=== PATIENT | female | born 1965 | race Caucasian/White ===

== ENCOUNTER 2022-05-25 09:21 | Outpatient (REF) | payer OTHER, SELFPAY ==
[2022-05-25 10:39] LABS: MANUAL DIFF FLAG NO
[2022-05-25 10:43] LABS: Basophils Absolute Auto 0.1 X10*3/uL (0.0-0.2); Basophils Percent Auto 0.8 % (0-2); Eosinophils Absolute Auto 0.5 X10*3/uL (0.0-0.4); Eosinophils Percent Auto 8.3 % (0-4); Hematocrit 38.3 % (37.0-47.0); Hemoglobin 12.3 g/dl (12.0-16.0); Imm Gran Abs Auto 0.02 X10*3/uL (0.00-0.03); Imm Gran Pct Auto 0.3 % (0.0-0.4); Lymphocytes Absolute Auto 1.6 X10*3/uL (1.2-4.9); Lymphocytes Percent Auto 25.2 % (20-40); Mean Corpuscular HGB Conc 32.1 g/dl (31.0-35.0); Mean Corpuscular Hemoglobin 27.8 pg (27.0-33.0); Mean Corpuscular Volume 86.7 fL (80.0-98.0); Mean Platelet Volume 10.7 fL (9.4-12.3); Monocytes Absolute Auto 0.6 X10*3/uL (0.1-1.2); Monocytes Percent Auto 9.9 % (2-11); Neutrophils Absolute Auto 3.5 x10*3/uL (2.0-8.3); Neutrophils Percent Auto 55.5 % (45-73); Platelet Count 325 X10*3/uL (160-400); Red Blood Count 4.42 X10*6/uL (4.20-5.50); Red Cell Distribution Width 14.5 % (11.0-16.0); White Blood Count 6.4 X10*3/uL (4.8-10.8)
[2022-05-25 10:58] LABS: C Reactive Protein 1.25 mg/dL (< or = 0.50)
[2022-05-25 11:35] LABS: Erythrocyte Sedimentation Rate 54 MM/HR (0-20)
== END 2022-05-25 09:22 | disposition home or self-care (01) ==
LOC: HO.10HDL 09:21
PROVIDERS: Visit Provider Internal Medicine Rheumatology
DX: M05.9 Rheumatoid arthritis with rheumatoid factor, unspecified (principal)
CPT/HCPCS: 36415; 85025; 85652; 86140

== ENCOUNTER → 2022-11-09 14:58 | Outpatient (BNVA) | payer OTHER, SELFPAY | PROVIDERS: PCP Internal Medicine; Visit Provider Internal Medicine Rheumatology | DX: Z13.89 Encounter for screening for other disorder (principal) ==

== ENCOUNTER 2023-01-16 14:01 | Outpatient (REF) | payer OTHER, SELFPAY ==
[2023-01-16 15:52] LABS: MANUAL DIFF FLAG NO
[2023-01-16 15:54] LABS: Basophils Absolute Auto 0.1 X10*3/uL (0.0-0.2); Eosinophils Absolute Auto 0.6 X10*3/uL (0.0-0.4); Eosinophils Percent Auto 8.9 % (0-4); Hematocrit 37.9 % (37.0-47.0); Hemoglobin 12.1 g/dl (12.0-16.0); Imm Gran Abs Auto 0.03 X10*3/uL (0.00-0.03); Imm Gran Pct Auto 0.4 % (0.0-0.4); Lymphocytes Absolute Auto 1.8 X10*3/uL (1.2-4.9); Lymphocytes Percent Auto 26.1 % (20-40); Mean Corpuscular HGB Conc 31.9 g/dl (31.0-35.0); Mean Corpuscular Hemoglobin 27.8 pg (27.0-33.0); Mean Corpuscular Volume 87.1 fL (80.0-98.0); Mean Platelet Volume 11.1 fL (9.4-12.3); Monocytes Absolute Auto 0.6 X10*3/uL (0.1-1.2); Monocytes Percent Auto 8.8 % (2-11); Neutrophils Absolute Auto 3.7 x10*3/uL (2.0-8.3); Neutrophils Percent Auto 54.8 % (45-73); Platelet Count 292 X10*3/uL (160-400); Red Blood Count 4.35 X10*6/uL (4.20-5.50); Red Cell Distribution Width 15.2 % (11.0-16.0); White Blood Count 6.8 X10*3/uL (4.8-10.8)
[2023-01-16 16:07] LABS: C Reactive Protein 1.02 mg/dL (< or = 0.50)
[2023-01-16 16:55] LABS: Erythrocyte Sedimentation Rate 39 MM/HR (0-20)
== END 2023-01-16 14:02 | disposition home or self-care (01) ==
LOC: HO.HMGCLDS 14:01
PROVIDERS: PCP Internal Medicine; Visit Provider Internal Medicine Rheumatology
DX: M05.9 Rheumatoid arthritis with rheumatoid factor, unspecified (principal); Z79.899 Other long term (current) drug therapy
CPT/HCPCS: 36415; 85025; 85652; 86140

== ENCOUNTER 2023-07-05 14:51 | Outpatient (AMB) | payer OTHER, SELFPAY ==
--- NOTE | 2023-07-05 15:01 | MHC.OFFVIS ---
Intake Vital Signs 07/05/23 15:15 Height 5 ft 2 in Weight 202 lb 9.677 oz BMI 37.1 BP 142/60 H Blood Pressure Location Rt brachial Position Sitting Pulse 84 Pulse Source Pulse Oximeter Temp 97.7 F Temp Source Skin Pulse Oximetry (%) 96 Oxygen Delivery Method Room Air Intake Visit Reasons: Rheumatoid Arthritis Intake Note: Patient presents today for RA follow up. Consumer Services Advisor Required: No Accompanied by: Self / Same As Patient Allergies mold Adverse Reaction (Unknown, Unverified 07/05/23 15:02) Unknown Sulfa (Sulfonamide Antibiotics) Adverse Reaction (Unknown, Unverified 07/05/23 15:02) Unknown dust Adverse Reaction (Unknown, Uncoded 07/05/23 15:02) Watery Eye Medication List - Last Reviewed 07/05/23 by RICHARD Wright albuterol sulfate 90 mcg/actuation 2 puffs inhalation Q6H PRN aspirin (Adult Low Dose Aspirin) 81 mg PO DAILY atorvastatin 20 mg PO DAILY betamethasone, augmented 0.05 % topical cholecalciferol (vitamin D3) 50 mcg PO DAILY fluticasone propion-salmeterol 250-50 mcg/dose (Advair Diskus) 1 ea inhalation BID fluticasone propionate 50 mcg/actuation (Allergy Relief (fluticasone)) 1 spray intranasal DAILY hydroxychloroquine (Plaquenil) 200 mg PO BID Lactobacillus rhamnosus GG (Culturelle) 1 cap PO DAILY levothyroxine mcg PO multivitamin 1 tab PO DAILY potassium citrate ER 15 mEq PO BID HPI HPI Comments History of Present Illness Details The patient returns for evaluation of her rheumatoid arthritis. she remains on hydroxychloroquine 200 mg twice a day. She had an eye exam to monitor its safety back in November and another eye exam is planned next winter. She does not seem to have any side effects with the hydroxychloroquine and feels that is working well. She has occasional stiffness in the knees. She is not all that active. She does take walks when the weather is warmer after dinner in the evenings. She decided Dupixent has not been that helpful so she stopped it for her hand eczema. She also had a skin cancer removed from the left cheek. She says her furniture builder has quit practicing so she needs a furniture builder to follow-up on those issues. FORMERLY [facility], [facility] Medical History Asthma Coronary artery disease Hyperlipidemia Hypothyroid Nonrheumatic pulmonary valve stenosis Obstructive sleep apnea Overactive bladder Rheumatoid arthritis, seropositive, multiple sites Seborrheic dermatitis Severe obesity (BMI 35.0-35.9 with comorbidity) Staghorn calculus Ventricular septal defect Surgical History H/O valvuloplasty H/O mammogram Hx of colonoscopy Family History Mother Hypertension Arthritis Breast cancer, Onset Age: 80 Sister Arthritis Father Diabetes Arthritis Social History Household Members Other:: lives alone 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 GI Details: Negative indigestion/heartburn, nausea, abdominal pain, bowel changes, diarrhea, constipation and bloody stool. Endo Details: Negative for polyuria and polydypsia Yassine/Lymph Details: Negative for excessive bruising or bleeding. Physical Exam Vital Signs: Last Vital Signs Temp 97.7 F 07/05/23 15:15 Pulse 84 07/05/23 15:15 BP 142/60 H 07/05/23 15:15 Pulse Ox 96 07/05/23 15:15 Oxygen Delivery Method Room Air 07/05/23 15:15 BMI result Body Mass Index 37.1 APPEARANCE: Patient in no acute distress EYES no redness, pupils equal and reactive to light, eyelids normal EXTREMITIES: No edema, no calf tenderness, normal peripheral pulses. SKIN: Some dryness and flaking over the palms of the hands and to some extent the feet in the soles of the feet in the dorsum of the feet. No raised inflammatory or neoplastic lesions. She has well-healed scar over the left cheek where she had the skin cancer removed. She has no objective signs of Raynaud's disease. JOINT EXAM: ?Cervical Spine:.? Lateral flexion seems limited about 10 degrees and rotation at 45 degrees but without pain; no tenderness. Thoracic Spine:.? No scoliosis.? No tenderness on palpation. Lumbar Spine:.? Alignment normal.? Full range of motion without pain, no tenderness. Chest Wall:.? No tenderness, swelling, increased warmth or erythema. Hands:.? Right:? Normal pain-free range of motion.? There is some slight thickening at the 3rd MCP but without tenderness.? In other joints there is no tenderness or swelling.? No flexor tendon triggering, thenar atrophy or sensory loss.? Left:? Normal pain-free range of motion without tenderness, swelling, increased warmth or erythema.? No flexor tendon triggering, thenar atrophy or sensory loss. Wrists:? Normal pain-free range of motion without tenderness, swelling, increased warmth or erythema. Elbows:. Normal pain-free range of motion without tenderness, swelling, increased warmth or erythema. Shoulders:.?? Full range of motion without pain. No tenderness, weakness, swelling, increased warmth or erythema. Hips:? Full range of motion without pain. Hip bursa:.? No tenderness. Knees: Right:?? Normal pain-free range of motion with slight patellofemoral crepitus but no effusion, tenderness, swelling, increased warmth or erythema.? Left: Mild patellofemoral crepitus. There is slight medial compartment tenderness without redness or effusion. No ligamentous instability. Ankles:? Normal pain-free range of motion without tenderness, swelling, increased warmth or erythema. Feet:.? Left:? With weight-bearing there is marked splaying between the 2nd and 3rd toes and maybe some thickening in those joints wrists slight 2nd 3rd MTP tenderness.? Slight thickening at the 1st MTP without tenderness.? Right:? Normal pain-free range of motion with slight bony enlargement at the 1st MTP joint but it is not tender.? Elsewhere there is no tenderness, swelling, increased warmth or erythema. Results Reviewed Results Reviewed: Laboratory Tests 01/16/23 01/16/23 14:11 14:17 ESR 39 H C-Reactive Protein 1.02 H Assessment & Plan Assessment & Plan (1) Long-term use of hydroxychloroquine: Code(s): Z79.899 - Other long wall mining machine helper (current) drug therapy (2) Seropositive rheumatoid arthritis: Comment: Onset ~ 2008. Pos CIERA, pos RF, pos CCP Ab, neg anti-SAMIRA. Hydroxychloroquine started 02/15; eye exam OK 10/19, 10/20, 10/21, 10/22, 11/23, 10/2020, 11/2021 Code(s): M05.9 - Rheumatoid arthritis with rheumatoid factor, unspecified Plan She has rheumatoid arthritis with I think good control of synovitis with current regimen. She is complying with regular eye exams to monitor her for possible toxicity of the hydroxychloroquine so I think we can continue. We will aim for return visit in about 6 months but she can certainly call us if she senses a flare-up of symptoms. Coding Level of Care Code Est Pt Level 3 (12079) Diagnoses Long-term use of hydroxychloroquine Z79.899 Seropositive rheumatoid arthritis M05.9
[2023-07-05 15:15] VITALS: BP 142/60; PULSE 84; TEMP 36.5; O2SAT 96; BMI 37.1
== END 2023-07-05 15:33 | disposition home or self-care (01) ==
PROVIDERS: PCP Internal Medicine; Visit Provider Internal Medicine Rheumatology
DX: M05.79 Rheumatoid arthritis with rheumatoid factor of multiple sites without organ or systems involvement (principal); Z79.899 Other long term (current) drug therapy
CPT/HCPCS: 99213

== ENCOUNTER → 2023-07-05 14:51 | Outpatient (BNVA) | payer OTHER, SELFPAY | PROVIDERS: Visit Provider Internal Medicine Rheumatology ==

== ENCOUNTER 2024-01-04 14:06 | Outpatient (AMB) | payer OTHER, SELFPAY ==
[2024-01-04 14:25] VITALS: BP 122/76; PULSE 75; O2SAT 97; BMI 36.8
--- NOTE | 2024-01-04 14:25 | MHC.OFFVIS ---
Intake Vital Signs 01/04/24 14:25 Height 5 ft 2 in Weight 201 lb 4.513 oz BMI 36.8 BP 122/76 Blood Pressure Location Lt brachial Position Sitting Pulse 75 Pulse Source Pulse Oximeter Pulse Oximetry (%) 97 Oxygen Delivery Method Room Air Intake Visit Reasons: RA with dr. Bright/MANNY Intake Note: Patient last seen by Dr Fonseca 07/05/23 presents today for follow up. 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 Accompanied by: Self / Same As Patient Allergies mold Adverse Reaction (Unknown, Unverified 01/04/24 14:33) Unknown Sulfa (Sulfonamide Antibiotics) Adverse Reaction (Unknown, Unverified 01/04/24 14:33) Unknown dust Adverse Reaction (Unknown, Uncoded 01/04/24 14:33) Watery Eye Medication List - Last Reconciled 01/04/24 by Nadia Aguilar MD albuterol sulfate 90 mcg/actuation 2 puffs inhalation Q6H PRN aspirin (Adult Low Dose Aspirin) 81 mg PO DAILY atorvastatin 20 mg PO DAILY betamethasone, augmented 0.05 % topical cholecalciferol (vitamin D3) 50 mcg PO DAILY fluticasone propion-salmeterol 250-50 mcg/dose (Advair Diskus) 1 ea inhalation BID fluticasone propionate 50 mcg/actuation (Allergy Relief (fluticasone)) 1 spray intranasal DAILY hydroxychloroquine 200 mg PO BID Lactobacillus rhamnosus GG (Culturelle) 1 cap PO DAILY levothyroxine 100 mcg PO DAILY multivitamin 1 tab PO DAILY potassium citrate ER 15 mEq PO BID HPI HPI Comments History of Present Illness Details This is a 58-year-old female with seropositive RA who returns for follow-up. This is her 1st visit with me. She used to follow-up with Dr. Fonseca. She remains on hydroxychloroquine 200 mg Twice daily. States that she continues to feel about the same overall. States that she gets intermittent knee pain especially when kneeling. Otherwise she feels well. Denies any swollen joints. Most recent history by Dr. Fonseca 07/2023: The patient returns for evaluation of her rheumatoid arthritis. she remains on hydroxychloroquine 200 mg twice a day. She had an eye exam to monitor its safety back in November and another eye exam is planned next winter. She does not seem to have any side effects with the hydroxychloroquine and feels that is working well. She has occasional stiffness in the knees. She is not all that active. She does take walks when the weather is warmer after dinner in the evenings. She decided Dupixent has not been that helpful so she stopped it for her hand eczema. She also had a skin cancer removed from the left cheek. She says her perinatal technician has quit practicing so she needs a perinatal technician to follow-up on those issues. FORMERLY [facility] Medical History Seborrheic dermatitis Ventricular septal defect Hypothyroid Overactive bladder Rheumatoid arthritis, seropositive, multiple sites Obstructive sleep apnea Severe obesity (BMI 35.0-35.9 with comorbidity) Hyperlipidemia Asthma Nonrheumatic pulmonary valve stenosis Coronary artery disease Staghorn calculus Surgical History H/O valvuloplasty H/O mammogram Hx of colonoscopy Family History Mother Hypertension Arthritis Breast cancer, Onset Age: 80 Sister Arthritis Father Diabetes Arthritis Social History Household Members Other:: lives alone Housing: Condominium Are you a primary nurse behavioral health care to a significant other at home: No Do you presently have visiting nurse or other home services: No 75 years or older and lives alone: No Alcohol intake: never Patient Tobacco Use Status: Never used Tobacco e-Cigarette/Vaping Use: Never Used service: No Current occupational status: employed 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 and Denies joint swelling Physical Exam Vital Signs: Last Vital Signs Pulse 75 01/04/24 14:25 BP 122/76 01/04/24 14:25 Pulse Ox 97 01/04/24 14:25 Oxygen Delivery Method Room Air 01/04/24 14:25 BMI result Body Mass Index 36.8 Const General: cooperative, healthy appearing and comfortable Nutritional Appearance: average body habitus and obese morbidly obese Limitations: no limitations HEENT Head: Yes normocephalic and Yes atraumatic Mouth: moist mucous membranes Resp Effort & Inspection: normal respiratory effort and able to speak in complete sentences Auscultation: clear to auscultation bilaterally Cardio Rate: regular rate Rhythm: regular rhythm Heart sounds: Murmur heart sound present systolic Skin General skin exam: no rashes or lesions noted Extrem Other: No active synovitis both hands and wrists Normal range of motion of elbows and shoulders Bilateral knee crepitus Assessment & Plan Assessment & Plan (1) Seropositive rheumatoid arthritis: Comment: Onset ~ 2008. ++CIERA, ++ RF+++ CCP Ab, neg anti-SAMIRA. Hydroxychloroquine started 02/15; eye exam OK 10/19, 10/20, 10/21, 10/22, 11/23, 10/2020, 11/2021, 12/2023 Code(s): M05.9 - Rheumatoid arthritis with rheumatoid factor, unspecified Plan: This is 58-year-old female with seropositive RA who returns for follow-up. This is her 1st visit with me. She used to follow-up with Dr. Fonseca. She remains on hydroxychloroquine 200 mg Twice daily. Doing well with no active synovitis Continue hydroxychloroquine 200 mg Twice daily. Labs before next visit in 6 months (2) Long-term use of hydroxychloroquine: Code(s): Z79.899 - Other buttermaker continuous churn (current) drug therapy Plan: Continue to follow-up regularly with Ophthalmology Plan I spent 27 minutes reviewing patient's chart, evaluating patient, ordering diagnostic workup, counseling patient and documenting in the chart Orders: Orders Comprehensive Met. Panel 6 Months M05.9 - Rheumatoid arthritis with rheumatoid factor, unspecified, Z79.899 - Other buttermaker continuous churn (current) drug therapy Immunofixation Pnl, Serum 6 Months M05.9 - Rheumatoid arthritis with rheumatoid factor, unspecified, Z79.899 - Other longterm (current) drug therapy Protein Electrophoresis, Serum 6 Months M05.9 - Rheumatoid arthritis with rheumatoid factor, unspecified, Z79.899 - Other buttermaker continuous churn (current) drug therapy Hepatitis A,B,C Profile 6 Months M05.9 - Rheumatoid arthritis with rheumatoid factor, unspecified, Z79.899 - Other buttermaker continuous churn (current) drug therapy T Spot TB 6 Months M05.9 - Rheumatoid arthritis with rheumatoid factor, unspecified, Z79.899 - Other buttermaker continuous churn (current) drug therapy Complete Blood Count Auto Diff 6 Months M05.9 - Rheumatoid arthritis with rheumatoid factor, unspecified, Z79.899 - Other buttermaker continuous churn (current) drug therapy C Reactive Protein 6 Months M05.9 - Rheumatoid arthritis with rheumatoid factor, unspecified, Z79.899 - Other buttermaker continuous churn (current) drug therapy Erythrocyte Sedimentation Rate 6 Months M05.9 - Rheumatoid arthritis with rheumatoid factor, unspecified, Z79.899 - Other buttermaker continuous churn (current) drug therapy Medications: Refilled hydroxychloroquine 200 mg PO BID 180 tabs 1RF M05.9 - Rheumatoid arthritis with rheumatoid factor, unspecified Coding Level of Care Code Est Pt Level 4 (12469) Diagnoses Seropositive rheumatoid arthritis M05.9 Long-term use of hydroxychloroquine Z79.899
== END 2024-01-04 14:56 | disposition home or self-care (01) ==
PROVIDERS: PCP Internal Medicine; Visit Provider Student in an Organized Health Care Education/Training Program
DX: M05.79 Rheumatoid arthritis with rheumatoid factor of multiple sites without organ or systems involvement (principal); Z79.899 Other long term (current) drug therapy
CPT/HCPCS: 99213

== ENCOUNTER → 2024-01-04 14:06 | Outpatient (BNVA) | payer OTHER, SELFPAY | PROVIDERS: PCP Internal Medicine; Visit Provider Student in an Organized Health Care Education/Training Program ==

== ENCOUNTER 2024-06-16 09:41 | Outpatient (REF) | payer OTHER, SELFPAY ==
[2024-06-16 13:56] LABS: MANUAL DIFF FLAG NO
[2024-06-16 14:03] LABS: Basophils Percent Auto 0.5 % (0-2); Eosinophils Absolute Auto 0.3 X10*3/uL (0.0-0.4); Hematocrit 35.2 % (37.0-47.0); Hemoglobin 11.2 g/dl (12.0-16.0); Imm Gran Abs Auto 0.02 X10*3/uL (0.00-0.03); Imm Gran Pct Auto 0.4 % (0.0-0.4); Lymphocytes Absolute Auto 1.1 X10*3/uL (1.2-4.9); Lymphocytes Percent Auto 19.3 % (20-40); Mean Corpuscular HGB Conc 31.8 g/dl (31.0-35.0); Mean Corpuscular Hemoglobin 27.2 pg (27.0-33.0); Mean Corpuscular Volume 85.4 fL (80.0-98.0); Monocytes Absolute Auto 0.5 X10*3/uL (0.1-1.2); Monocytes Percent Auto 8.5 % (2-11); Neutrophils Absolute Auto 3.6 x10*3/uL (2.0-8.3); Neutrophils Percent Auto 65.3 % (45-73); Platelet Count 253 X10*3/uL (160-400); Red Blood Count 4.12 X10*6/uL (4.20-5.50); Red Cell Distribution Width 16.9 % (11.0-16.0); White Blood Count 5.5 X10*3/uL (4.8-10.8)
[2024-06-16 14:22] LABS: Alanine Aminotransferase 18 U/L (0-31); Albumin Level 3.9 g/dL (3.5-5.0); Alkaline Phosphatase 102 U/L (39-117); Anion Gap 11 (12-20); Aspartate Amino Transferase 19 U/L (5-31); Bilirubin Total 0.6 mg/dL (0.0-1.0); Blood Urea Nitrogen 16 mg/dL (9-16); Calcium 9.8 mg/dL (8.4-10.2); Carbon Dioxide 24 mmol/L (22-29); Chloride 106 mmol/L (96-108); Estimated Glomerular Filt Rate > 60; Glucose Random 117 mg/dL (60-115); Potassium 4.1 mmol/L (3.3-5.1); Sodium 137 mmol/L (135-145); Total Protein 7.6 g/dL (6.5-8.0)
[2024-06-16 14:44] LABS: Erythrocyte Sedimentation Rate 44 MM/HR (0-20)
[2024-06-19 08:38] LABS: HBS Num1 35.22 mIU/mL (0-7.99); HBc Num1 0.26 S/CO (0.00-0.79); HBsAGNum1 0.36 S/CO (0.00-0.99); Hepatitis A Antibody IgM 0.17 Index (0-0.79); Hepatitis B Core Antibody Nonreactive (Nonreactive); Hepatitis B Surface Antigen Negative (Negative); ~HepC Num1 0.24 S/CO (0.00-0.79); ~Hepatitis A Antibody IgM Nonreactive (Nonreactive); ~Hepatitis B Surface Antibody REACTIVE (Nonreactive); ~Hepatitis C Antibody Nonreactive (Nonreactive)
[2024-06-19 15:04] LABS: PES - Abn Protein Band 1 0.2 g/dL (NONE DETECTED); Prot Elec - Albumin 3.7 g/dL (3.8-4.8); Prot Elec - Alpha1 0.3 g/dL (0.2-0.3); Prot Elec - Alpha2 0.8 g/dL (0.5-0.9); Prot Elec - Beta 1 0.5 g/dL (0.4-0.6); Prot Elec - Beta 2 0.5 g/dL (0.2-0.5); Prot Elec - Gamma 1.5 g/dL (0.8-1.7); Prot Elec - Total Protein 7.2 g/dL (6.1-8.1)
[2024-06-19 22:34] LABS: TS Negative Control Passed; TS Panel A 0; TS Panel B 0; TS Positive Control Passed; TSpotTB Negative (Negative)
[2024-06-20 15:34] LABS: IgA 290 mg/dL (47-310); IgG 1738 mg/dL (600-1640); IgM 89 mg/dL (50-300)
== END 2024-06-16 09:42 | disposition home or self-care (01) ==
LOC: HO.HMGCLDS 09:41
PROVIDERS: PCP Internal Medicine; Visit Provider Student in an Organized Health Care Education/Training Program
DX: M05.9 Rheumatoid arthritis with rheumatoid factor, unspecified (principal); Z79.899 Other long term (current) drug therapy
CPT/HCPCS: 36415; 80053; 82784; 84165; 85025; 85652; 86140; 86334; 86481; 86704; 86706; 86709; 86803; 87340

== ENCOUNTER 2024-07-05 13:47 | Outpatient (AMB) | payer OTHER, SELFPAY ==
--- NOTE | 2024-07-05 13:50 | MHC.OFFVIS ---
Vital Signs 07/05/24 13:53 Height 5 ft 2 in Weight 198 lb 6.656 oz BMI 36.3 BP 115/68 Blood Pressure Location Rt brachial Position Sitting Pulse 80 Pulse Source Pulse Oximeter Pulse Oximetry (%) 95 Oxygen Delivery Method Room Air Intake Visit Reasons: RA Intake Note: Patient presents for RA. Allergies mold Adverse Reaction (Unknown, Verified 07/05/24 13:52) Unknown Sulfa (Sulfonamide Antibiotics) Adverse Reaction (Unknown, Verified 07/05/24 13:52) Unknown dust Adverse Reaction (Unknown, Uncoded 01/04/24 14:33) Watery Eye Medication List - Last Reconciled 07/05/24 by Nadia Aguilar MD albuterol sulfate 90 mcg/actuation 2 puffs inhalation Q6H PRN aspirin (Adult Low Dose Aspirin) 81 mg PO DAILY atorvastatin 20 mg PO DAILY betamethasone, augmented 0.05 % topical cholecalciferol (vitamin D3) 50 mcg PO DAILY fluticasone propion-salmeterol 250-50 mcg/dose (Advair Diskus) 1 ea inhalation BID fluticasone propionate 50 mcg/actuation (Allergy Relief (fluticasone)) 1 spray intranasal DAILY hydroxychloroquine 200 mg PO BID Lactobacillus rhamnosus GG (Culturelle) 1 cap PO DAILY levothyroxine 100 mcg PO DAILY multivitamin 1 tab PO DAILY potassium citrate ER 15 mEq PO BID HPI Comments Details: This is a 58-year-old female with seropositive RA who returns for follow-up. She remains on hydroxychloroquine 20 mg Twice daily. She stated that she is doing about the same overall. She states that she gets intermittent knee pain especially when getting up after sitting down for some time, not associated with swelling, times feels her knees cracking. Denies any joint pain, swelling or stiffness of her hands. She has been having dry skin and cracking of the palms of both her hands. She has been following up with industrial specialist. Most recent history by Dr. Fonseca 07/2023: The patient returns for evaluation of her rheumatoid arthritis. she remains on hydroxychloroquine 200 mg twice a day. She had an eye exam to monitor its safety back in November and another eye exam is planned next winter. She does not seem to have any side effects with the hydroxychloroquine and feels that is working well. She has occasional stiffness in the knees. She is not all that active. She does take walks when the weather is warmer after dinner in the evenings. She decided Dupixent has not been that helpful so she stopped it for her hand eczema. She also had a skin cancer removed from the left cheek. She says her industrial specialist has quit practicing so she needs a industrial specialist to follow-up on those issues. [facility] Medical History Seborrheic dermatitis Ventricular septal defect Hypothyroid Overactive bladder Rheumatoid arthritis, seropositive, multiple sites Obstructive sleep apnea Severe obesity (BMI 35.0-35.9 with comorbidity) Hyperlipidemia Asthma Nonrheumatic pulmonary valve stenosis Coronary artery disease Staghorn calculus Surgical History H/O valvuloplasty H/O mammogram Hx of colonoscopy Family History Mother Hypertension Arthritis Breast cancer, Onset Age: 80 Sister Arthritis Father Diabetes Arthritis Social History Household Members Other:: lives alone Housing: Condominium Are you a primary morning caregiver to a significant other at home: No Do you presently have visiting nurse or other home services: No 75 years or older and lives alone: No Alcohol intake: never Patient Tobacco Use Status: Never used Tobacco e-Cigarette/Vaping Use: Never Used service: No Current occupational status: employed 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 Review of Systems [facility] [place]ralgias and Denies joint swelling Physical Exam Vital Signs: Last Vital Signs Pulse 80 07/05/24 13:53 BP 115/68 07/05/24 13:53 Pulse Ox 95 07/05/24 13:53 Oxygen Delivery Method Room Air 07/05/24 13:53 BMI result Body Mass Index 36.3 Const General: cooperative, healthy appearing and comfortable Nutritional Appearance: average body habitus and obese morbidly obese Limitations: no limitations HEENT Head: Yes normocephalic and Yes atraumatic Mouth: moist mucous membranes Resp Effort & Inspection: normal respiratory effort and able to speak in complete sentences Auscultation: clear to auscultation bilaterally Cardio Rate: regular rate Rhythm: regular rhythm Heart sounds: Murmur heart sound present systolic Skin Other: Dry cracked skin both palms Extrem Other: No active synovitis both hands and wrists Normal range of motion of elbows and shoulders Bilateral knee crepitus Assessment & Plan Assessment & Plan (1) Seropositive rheumatoid arthritis: Comment: Onset ~ 2008. ++CIERA, ++ RF+++ CCP Ab, neg anti-SAMIRA. Hydroxychloroquine started 02/15; eye exam OK 10/19, 10/20, 10/21, 10/22, 11/23, 10/2020, 11/2021, 12/2023 Code(s): M05.9 - Rheumatoid arthritis with rheumatoid factor, unspecified Category: Medical Plan: This is 58-year-old female with seropositive RA who returns for follow-up. She remains on hydroxychloroquine 200 mg Twice daily. Doing well with no active synovitis . Her inflammatory markers have been persistently elevated but I do not see any signs of active disease Continue hydroxychloroquine 200 mg Twice daily. Labs before next visit in 6 months (2) Long-term use of hydroxychloroquine: Code(s): Z79.899 - Other terminal make up operator (current) drug therapy Category: Medical Plan: Continue to follow-up regularly with Ophthalmology (3) MGUS (monoclonal gammopathy of unknown significance): Code(s): D47.2 - Monoclonal gammopathy Category: Medical Plan: Referred to heme/Onc Plan I spent 27 minutes reviewing patient's chart, evaluating patient, ordering diagnostic workup, counseling patient and documenting in the chart Orders: Orders Erythrocyte Sedimentation Rate 6 Months M05.9 - Rheumatoid arthritis with rheumatoid factor, unspecified Complete Blood Count Auto Diff 6 Months M05.9 - Rheumatoid arthritis with rheumatoid factor, unspecified Comprehensive Met. Panel 6 Months M05.9 - Rheumatoid arthritis with rheumatoid factor, unspecified C Reactive Protein 6 Months M05.9 - Rheumatoid arthritis with rheumatoid factor, unspecified Referrals Hematology & Oncology Referral M05.9 - Rheumatoid arthritis with rheumatoid factor, unspecified, Z79.899 - Other group home (current) drug therapy Medications: Refilled hydroxychloroquine 200 mg PO BID 180 tabs 1RF M05.9 - Rheumatoid arthritis with rheumatoid factor, unspecified Coding Level of Care Code Est Pt Level 4 (35675) Diagnoses Seropositive rheumatoid arthritis M05.9 Long-term use of hydroxychloroquine Z79.899 MGUS (monoclonal gammopathy of unknown significance) D47.2
[2024-07-05 13:53] VITALS: BP 115/68; PULSE 80; O2SAT 95; BMI 36.3
== END 2024-07-05 14:22 | disposition home or self-care (01) ==
PROVIDERS: PCP Internal Medicine; Visit Provider Student in an Organized Health Care Education/Training Program
DX: M05.79 Rheumatoid arthritis with rheumatoid factor of multiple sites without organ or systems involvement (principal); Z79.899 Other long term (current) drug therapy; D47.2 Monoclonal gammopathy
CPT/HCPCS: 99214

== ENCOUNTER → 2024-07-05 13:47 | Outpatient (BNVA) | payer OTHER, SELFPAY | PROVIDERS: PCP Internal Medicine; Visit Provider Student in an Organized Health Care Education/Training Program ==

== ENCOUNTER 2025-04-20 09:46 | Outpatient (REF) | payer OTHER, SELFPAY ==
--- OUTSIDE RECORDS SUMMARY | 2025-04-20 09:56 | XMS_ITS | Clinical Summary ---
Author Organization [facility] Address [address] [place] [address] Care Team Providers Care Community Life Director Name Role Phone Unavailable Primary Care Provider Unavailabl e Source Comments PLEASE NOTE, if this patient is a minor, it may be UNLAWFUL to discuss sensitive information that is contained in these records (such as FAMILY PLANNING, MENTAL HEALTH or SUBSTANCE ABUSE) with the minor patient's parent or other person without the patient's specific authorization.[facility] Immunizations Immunization Administration Dates Next Due Moderna COVID-19 Vaccine, re d cap blue label, 12+ Primary Series 02/27/2021,01/30/2021 Social History Tobacco Use Types Packs/Day Years Used Date Smoking Tobacco: Never Assessed Social Connections Answer Date Recorded Social Connections and Isolation 0 01/30/2021 Financial Resource Strain Answer Date R ecorded Financial Resource Strain 0 2020 Stress Answer Date Recorded Stress 0 01/30/2021 Physical Activity Answer Date Recorded Physical Activity 0 01/30/2021 Food Insecurity Answer Date Recorded Food 0 01/30/2021 Transportation Needs Answer Date Record ed Transportation 0 01/30/2021 Housing Stability Answer Date Recorded Housing 0 01/30/2021 Safety and Environment Answer Date Farzad rded Safety 0 01/30/2021 Utilities Answer Date Recorded Utilities 0 01/30/2021 Employment Answer Date Recorded Employment 0 01/30/2021 Comments Unknown Sex and Gender Information Value Date Recorded Sex Assigned at Not on file Legal Sex Female 10:59 AM PDT Gender Identity Not on file Sexual Orientation Not on file Plan of Treatment Health Maintenance Due Date Last Done Comments Anxiety Screening 1963 Diabetes Screening 1963 HPV Screening 1963 Hepatitis C Screening 1963 Lipid Screening 1963 Pap + HPV 1963 Tobacco Screening 1963 HIV Screening 1978 Hypertension Screening (#1) 1981 Imm-DTaP/Tdap/Td (1 - Tdap) 1982 Cervical Cancer Screening 1984 Pap Smear 1984 Breast Cancer Screening (Mammogram) 2003 CT Colonography 2008 Colonoscopy 2008 Colorectal Cancer Screening 2008 FIT/gFOBT 2008 Fecal DNA 2008 Flexible Sigmoidoscopy 2008 Imm-Pneumococcal 50+ (1 of 1 - PCV) 2013 Imm-Zoster, Recombinant (1 of 2) 2013 [id number] ( season) 2024 021, 01/30/2021 Alcohol and Drug Screen 10/04/2024 Depression Annual Screen 10/04/2024 Imm-Influenza (Season Ended) 2025 Cervical Ablation/Cold-Knife Conization Discontinued Cervical Cryotherapy Discontinued Colposcopy Discontinued Endometrial Biopsy Discontinued Excision/Leep Discontinued HPV Genotyping Discontinued Vaginal Pap Discontinued Vulvoscopy Discontinued Insurance [facility] Subscriber Plan / Payer (Ef fective 2011-Present) Name:Yareli Green Relation to Subscriber:Self Name:Yareli Green Payer ID:[id number] Type:Indemnity Address: [address] [address]
--- OUTSIDE RECORDS SUMMARY | 2025-04-20 09:56 | XMS_ITS | Clinical Summary ---
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 6 Active potassium citrate (UROCIT-K) 15 mEq SR tablet Take 1 tablet (15 mEq total) by mouth. 2 Active albuterol HFA (PROAIR HFA ; PROVENTIL HFA ; VENTOLIN HFA) 90 mcg/actuation inhaler Inhale 2 puffs by mouth every 6 (six) hours if needed for wheezing or shortness of breath. 2 Active aspirin 81 mg chewable tablet Chew 1 tablet (81 mg total) 1 (one) time each day. for 360 days. - Oral 9 Active MULTIVITAMIN ORAL Take 1 tablet by mouth 1 (one) time each day. Active UNABLE TO FIND 1 Device by Other route. Med Name: CPAP Regional pressure 8cm Active mometasone (ELOCON) 0.1 % ointment Apply topically 1 (one) time each day. 4 Active triamcinolone (KENALOG) 0.1 % cream PLEASE SEE ATTACHED FOR DETAILED DIRECTIONS 4 Active levothyroxine (SYNTHROID, LEVOTHROID) 112 mcg tablet TAKE 1 TABLET BY MOUTH EVERY DAY 90 tablet 1 5 Active cholecalcifero l (VITAMIN D-3) 50 mcg (2,000 unit) capsule TAKE 1 CAPSULE BY MOUTH EVERY DAY 90 capsule 3 5 Active atorvastatin (LIPITOR) 20 mg tablet TAKE 1 TABLET BY MOUTH EVERY DAY 90 tablet 1 5 Active fluticasone furoate-vilant Teresa (Breo Ellipta) 200-25 mcg/dose inhaler Inhale 1 puff by mouth 1 (one) time each day. 3 each 3 5 04/03/20 26 Active betamethasone, augmented, (DIPROLENE) 0.05 % ointment Apply topically 2 (two) times a day. to affected area 3 03/26/20 25 Discontinu ed(Duplica te order) fluticasone HFA (FLOVENT HFA) 220 mcg/actuation inhaler Inhale 220 mcg by mouth 2 (two) times a day. 2 03/26/20 25 Discontinu ed(Duplica te order) fluticasone furoate-vilant Teresa (Breo Ellipta) 200-25 mcg/dose inhaler Inhale 1 puff by mouth 1 (one) time each day. 3 each 3 5 03/23/20 25 Discontinu ed(Reorder ) fluticasone furoate-vilant Teresa (Breo Ellipta) 200-25 mcg/dose inhaler Inhale 1 puff by mouth 1 (one) time each day. 3 each 3 5 03/26/20 25 Discontinu ed(Duplica te order) albuterol HFA (PROAIR HFA ; PROVENTIL HFA ; VENTOLIN HFA) 90 mcg/actuation inhaler Inhale 2 puffs by mouth every 6 (six) hours if needed for wheezing or shortness of breath. 1 each 11 03/26/20 25 Discontinu ed(Ravin gustafson order) Active Problems Problem Noted Date Diagnosed Date IgG lambda monoclonal gammopathy 07/12/2024 Lazy eye, left 07/12/2024 At high risk for breast cancer 12/06/2023 Staghorn calculus 05/01/2021 Overview (11/19/2024): 03/24 large, stent placed Nonrheumatic pulmonary valve stenosis 04/30/2021 Overview (11/19/2024): Assessment & Plan (10/12/2024 4:13 PM EST): She had a congenital pulmonic stenosis and had a percutaneous intervention more than 30 years ago. The most recent echocardiogram was 4 years ago and currently, her cardiac exam does not suggest pulmonic stenosis is severe. Will repeat echo to reassess pulmonic valve gradient and artery pressure. CAD (coronary artery disease) 04/30/2021 Overview (11/19/2024): Mild luminal irregularities Assessment & Plan (10/12/2024 4:13 PM EST): Orders: ECG 12 lead Asthma 04/27/2020 Hyperlipidemia LDL goal <55 04/07/2019 Severe obesity (BMI 35.0-39. 9) with comorbidity ([facility] V24, [facility] V28) 08/19/2018 Microalbuminuria 02/02/2018 Obstructive sleep apnea 01/24/2018 Overview (11/19/2024): [facility] Home Polysomnogram: Date 01/18/2018; AHI 12, Unclassified apneas 1; Obstructive apneas 5; Central apneas 0; Mixed apneas 0; hypopneas 65; average oxygen saturation 88% (lowest 74% with saturations <88% for 5% or more of study) - Obstructive Sleep Apnea - mild; mostly hyopneas; with sleep related hypoventilation by 2018 home polysomnogram. Bicornuate uterus 08/10/2016 Rheumatoid arthritis, seropo sitive, multiple sites ([facility] V24, [facility] V28) 01/30/2015 Overview (11/19/2024): Onset ~ 2008. Pos CIERA, pos RF, pos CCP Ab, neg anti-SAMIRA. Hydroxychloroquine started 02/15; eye exam OK 10/19, 10/20, 10/21, 10/22, 11/23, 10/2020 Overactive bladder 01/24/2015 Seborrheic dermatitis 06/08/2014 Overview (11/19/2024): Allergic rhinitis 08/19/2011 Hypothyroid 04/10/2010 Congenital stenosis of pulmonary valve Overview (11/19/2024): Successful balloon valvuloplasty 1995 Ventricular septal defect 11/09/2005 Overview (11/19/2024): Spontaneous closure as of 2013. Assessment & Plan (10/12/2024 4:13 PM EST): She was reported to have a small VSD. Card exam does not suggest VSD murmur. Will reassess. Encounters Date Type Department Care Team Description 03/26/2025 3:45 PM EDT Office Visit Adult Medicine [address] [phone] Anju Benton PA Hypothyroidism due to acquired atrophy of thyroid (Primary Dx); Coronary artery disease involving resighini coronary artery of resighini heart without angina pectoris; Microalbuminuria; Rheumatoid arthritis, seropositive, multiple sites ([facility] V24, [facility] V28); Obesity (BMI 30.0-34.9); Elevated random blood glucose level; Moderate persistent asthma without complication; Hyperlipidemia LDL goal <55 03/23/2025 1:14 PM EDT - 03/23/2025 11:59 PM EDT Hospital Encounter [facility] Ultrasound [address] [place] [address] Axillary mass, left Discharge Disposition: Home or Self Care 03/23/2025 8:30 AM EDT [facility] [address] [place] [phone] Anel Murphy MD Moderate persistent asthma without complication (Primary Dx); CONCEPCION on CPAP; Abnormal chest CT; Adenopathy; ILD (interstitial lung disease) ([facility] V24, [facility] V28) 03/14/2025 1:30 PM EDT - 03/14/2025 11:59 PM EDT Hospital Encounter [facility] Ultrasound [address] [place] [address] At high risk for breast cancer Discharge Disposition: Home or Self Care 03/14/2025 12:44 PM EDT - 03/14/2025 11:59 PM EDT [facility] [address] [phone] At high risk for breast cancer Discharge Disposition: Home or Self Care 02/20/2025 1:40 PM EDT Office Visit [facility] [address] [phone] Landon Akhtar MD At high risk for breast cancer (Primary Dx); Axillary lymphadenopathy; Intertriginous dermatitis associated with moisture 02/15/2025 2:45 PM EDT Office Visit [facility] Hematology Oncology [address] [place] [phone] Neil Castaneda MD IgG lambda monoclonal gammopathy (Primary Dx) from Last 3 Months Immunizations Name Administration Dates Next Due Influenza Quadravalent, MDCK , 0.5ml, preservative free (Flucelvax) 6mo and older 06/30/2019,07/01/2018 Influenza Quadravalent, MDCK , 0.5ml, with preservative (Flucelvax) 6mo and older 07/21/2022,07/13/2021,07/18/2017 Influenza trivalent, 0.5mL, preservative free (Fluarix; FluLaval; Fluzone) ages 6mo and older (Afluria) 3 years and older 06/29/2013,06/22/2008 Influenza trivalent, with preservative (Fluzone; Afluria) 6mo and older 06/03/2023,05/29/2020,06/20/2016,2014,08/01/2014,06/22/2011,06/24/2009,1 10/09/2006,08/22/2005 Moderna SARS-CoV-2 COVID-19, mRNA, LNP-S, preservative free 02/27/2021,01/30/2021 Pneumococcal conjugate 13 va lent (Prevnar 13, PCV13) 2mo and older 08/04/2017 RSV, bivalent, protein subun it RSVpreF, 0.5mL, Preservative Free (Arexvy) 60yo and older 02/27/2025 Td Tetanus diptheria (Tdvax) 7yo and older 08/04/2017 Tdap Tetanus diptheria acell ular pertussis (Boostrix; Adacel) 7yo and older 08/09/2007 Zoster recombinant (Shingrix ) 19yo and older 05/31/2022,02/07/2022 Surgical History Surgery Date Site/Laterality Comments OTHER SURGICAL HISTORY valvuloplasty COLONOSCOPY 10/04/2013 : normal SCREENING MAMMOGRAM 08/09/2024 Bilateral Medical History Medical History Date Comments Unspecified hypothyroidism 11/09/2005 Anxiety state, unspecified 04/12/2007 Allergic rhinitis 08/19/2011 Ventricular septal defect 11/09/2005 Overactive bladder 01/24/2015 Rheumatoid arthritis(714.0) 01/30/2015 Onse t - 2008. Pos CIERA, pos RF, pos CCP Ab, neg anti-SAMIRA Bicornuate uterus 05/2015 Microalbuminuria 02/02/2018 Severe obesity (BMI 35.0-39. 9) with comorbidity (CMS/HCC V24, CMS/HCC V28) 08/19/2018 Staghorn calculus 05/01/2021 : 03/24 large, stent placed Calculus of kidney [place] [facility] Family History Medical History Relation Name Comments Diabetes Father arthritis Breast cancer Mother 70s Hypertension Mother 70s arthritis ?RA, breast ca at 80 Arthritis Sister dx 62 ca breast Breast cancer Sister dx 62 Colon cancer Neg Hx Ovarian cancer Neg Hx Relation Name Status Comments Father Alive Mother 70s Sister dx 62 Alive Social History Tobacco Use Types Packs/Day Years Used Date Smoking Tobacco: Never Passive Smoke Exposure: Never Smokeless Tobacco: Never Tobacco Cessation:Counseling Given: Not Answered Alcohol Use Standard Drinks/Week Comments Yes 0 (1 standard drink = 0.6 oz pur e alcohol) Comments No Sex and Gender Information Value Date Recorded Sex Assigned at Female 11/30/2024 11:33 AM EST Legal Sex Female 7:52 PM EST Gender Identity Female 11/30/2024 11:33 AM EST Sexual Orientation Straight 11/30/2024 11 :33 AM EST Obstetrics History Para Term AB IAB SAB Ectopic Multiple Livin g Live Births 0 0 0 0 Last Filed Vital Signs Vital Sign Reading Time Taken Comments Blood Pressure 122/70 03/26/2025 3:43 PM EDT Pulse 87 03/26/2025 3:43 PM EDT Temperature 36.2 C (97.1 F) 03/26/2025 3:43 PM EDT Respiratory Rate 22 03/26/2025 3:43 PM EDT Oxygen Saturation 95% 03/26/2025 3:43 PM EDT Inhaled Oxygen Concentration - - Weight 86.6 kg (191 lb) 03/26/2025 3:43 PM EDT Height 157.5 cm (5' 2 ) 03/26/2025 3:43 PM EDT Body Mass Index 34.93 03/26/2025 3:43 PM EDT Plan of Treatment Upcoming Encounters Date Type Department Care Team (Late st Contact Info) Description 08/17/2025 2:30 PM EST Office Visit [facility] Hematology Oncology [address] [place] [phone] Neil Castaneda MD [address] [place] [phone] 08/23/2025 2:20 PM EST Office Visit [facility] [address] [phone] Landon Akhtar MD [address] [place] [address] 10/01/2025 2:00 PM EST Ancillary Procedure Pulmonolgy - [place] [address] [phone] 10/01/2025 2:45 PM EST Office Visit Pulmonolgy - [place] [facility] [address] [place] [phone] Anel Murphy MD 175 [facility] [address] [place] [address] 10/08/2025 3:30 PM EST Office Visit Adult Medicine [facility] [address] [place] [address] Kelsy Calle MD [address] [place] [address] Health Maintenance Due Date Last Done Comments Pneumococcal Vaccine: 50+ Years (2 of 2 - PPSV23) 09/29/2017 08/04/2017 HIV Screening 09/12/2022 Social Influencers of Health Screening 09/12/2022 COVID-19 Vaccine ( season) 2024 10/07/2022, 10/19/2021, 02/27/2021, Additional history exists Depression Screening 10/04/2024 Influenza Vaccine (#1) 2025 , 07/21/2022, 07/13/2021, Additional history exists Hypertension/CHF/CAD Annual BMP Blood Test 01/29/2026 01/29/2025, 05/24/2024, 05/24/2024 Breast Cancer Screening 03/14/2026 03/14/20 25, 08/19/2024, 02/09/2024, Additional history exists Cervical Cancer Screening: HPV 10/16/2026 10/16/2021 DTaP,Tdap,and Td Vaccines (3 - Td or Tdap) 08/04/2027 08/04/2017, 08/09/2007 Cholesterol Screening (Lipid Panel) 05/24/2029 05/24/2024, 05/24/2024, 05/05/2023 Colorectal Cancer Screening: Colonoscopy 03/08/2034 03/08/2024, 03/08/2014 Osteoporosis Screening (Bone Density Screening) 12/11/2034 12/11/2024 Hepatitis C Screening Completed 08/20/2011 Zoster Vaccines Completed 05/31/2022, 02/07/2022 RSV Immunization Adult Patients Completed 02/27/2025 HIB Vaccines Aged Out No longer eligi ble based on patient's age to complete this topic HPV Vaccines Aged Out No longer eligi ble based on patient's age to complete this topic Hepatitis A Vaccines Aged Out No long er eligible based on patient's age to complete this topic Hepatitis B Vaccines Aged Out No long er eligible based on patient's age to complete this topic IPV Vaccines Aged Out No longer eligi ble based on patient's age to complete this topic MMR Vaccines Aged Out No longer eligi ble based on patient's age to complete this topic Meningococcal ACWY Vaccine Aged Out N o longer eligible based on patient's age to complete this topic Meningococcal B Vaccine Aged Out No l onger eligible based on patient's age to complete this topic RSV Immunization Patients Under 20 months Aged Out No longer eligible based on patient's age to complete this topic Varicella Vaccines Aged Out No longer eligible based on patient's age to complete this topic Medical Devices Implanted Type Area Plan Checker Device Identifier Shelf Expiration Date Model / Serial / Lot Marker Breast Biopsy 15g Rigid Ti Barrel Hydromark - [id number] - [id number] Implanted:Qty: 1 on 03/23/2025 by Babak Rice MD at [facility] Imaging Implants Left: Axilla DEVIC[employer] [id number] 07/13/2027 4010-02- 15-T1 / [id number] / [id number] Procedures Procedure Name Priority Date/Time Associated Diagnosis Comments US BX NDL LYMPH NODE BREAST SUPERFICIAL LEFT Routine 03/23/2025 2:41 PM EDT Axillary mass, left TISSUE EXAM Routine 03/23/2025 2:15 PM EDT Axillary mass, left .PATHOLOGIST REVIEW FLOW CYTOMETRY Routine 03/23/2025 2:15 PM EDT Axillary mass, left LEUKEMIA, LYMPHOMA EVALUATION BY FLOW CYTOMETRY Routine 03/23/2025 2:15 PM EDT Axillary mass, left MG MAMMO DIGITAL DIAGNOSTIC W FLAVIO BILAT Routine 03/14/2025 2:18 PM EDT At high risk for breast cancer US BREAST LIMITED BILAT Routine 03/14/2025 2:14 PM EDT At high risk for breast cancer UT PROTEIN ELECTROPHORETIC FRACTIONATION & QUANTITATION SERUM Routine 01/29/2025 7:57 AM EDT MGUS (monoclonal gammopathy of unknown significance) UT IMMUNOFIXATION ELECTROPHORESIS SERUM Routine 01/29/2025 7:57 AM EDT Adenopathy PROTEIN, TOTAL Routine 01/29/2025 7:57 AM EDT MGUS (monoclonal gammopathy of unknown significance) CBC WITH AUTO DIFFERENTIAL Routine 01/29/2025 7:57 AM EDT MGUS (monoclonal gammopathy of unknown significance) IMMUNOFIXATION ELECTROPHORESIS Routine 01/29/2025 7:57 AM EDT Adenopathy PROTEIN ELECTROPHORESIS, SERUM Routine 01/29/2025 7:57 AM EDT MGUS (monoclonal gammopathy of unknown significance) KAPPA-LAMBDA QUANTITATIVE FREE LIGHT CHAINS Routine 01/29/2025 7:57 AM EDT MGUS (monoclonal gammopathy of unknown significance) IMMUNOGLOBULIN IGM Routine 01/29/2025 7: 57 AM EDT MGUS (monoclonal gammopathy of unknown significance) IMMUNOGLOBULIN IGG Routine 01/29/2025 7: 57 AM EDT MGUS (monoclonal gammopathy of unknown significance) IMMUNOGLOBULIN IGA Routine 01/29/2025 7: 57 AM EDT MGUS (monoclonal gammopathy of unknown significance) COMPREHENSIVE METABOLIC PANEL Routine 01/29/2025 7:57 AM EDT MGUS (monoclonal gammopathy of unknown significance) CBC AND DIFFERENTIAL Routine 01/29/2025 7:57 AM EDT MGUS (monoclonal gammopathy of unknown significance) BD BONE DENSITY DXA AXIAL SKELETON Routine 12/11/2024 2:05 PM EDT Menopausal and postmenopausal disorder LIPID PANEL Routine 05/24/2024 HM COLONOSCOPY Routine 03/08/2024 HM HPV Routine 10/16/2021 HM HEPATITIS C SCREENING Routine 08/20/2011 from Last 3 Months or Most Recently Relevant to Health Maintenance Results * US Bx Ndl Lymph Node Breast Superficial Left (03/23/2025 2:41 PM EDT) Anatomical Region Laterality Modality Breast Left Ultrasound 03/23/2025 2:50 PM EDT Addenda Addendum by Babak Rice MD on 04/02/2025 12:12 PM EDT Addendum: The final pathology results from the procedure are now available; DATE: 03/23/25 LOCATION: Left axilla ULTRASOUND-GUIDED FINAL PATHOLOGY RESULT: Final Diagnosis Lymph node, left axilla, ultrasound-guided core biopsy: - Lymph node with florid follicular lymphoid hyperplasia and a prominent polytypic plasma cell population. (See note.) ? - Flow cytometric evaluation reveals no monotypic B cell population and no aberrant T cell population. (See below.) -Immunohistochemical and in situ hybridization studies are performed for correlation with morphologic and flow cytometric findings and the results are as follows: Cytokeratin HARLEEN: Negative. CD3: Subset of small lymphocytes immunoreactive (predominantly interfollicular and some intra follicular). CD20: Follicle center cells and mantle zone lymphocytes immunoreactive. CD138: Abundant plasma cells are immunoreactive. BCL-2: Follicle center cells are negative. Panora light chain (ARNULFO): Subset of plasma cells are positive (greater than lambda). Lambda light chain (ARNULFO): Subset of plasma cells are positive. Interpretation: There is no epithelial cell population identified by Cytokeratin immunohistochemistry (No carcinoma is identified.) The lymphocytes show a generally account services manager distribution of CD3-positive T cells and [id number] B cells, and follicle center cells are negative for BCL2, supporting the morphologic impression of reactive germinal centers. The CD138 highlights many plasma cells, which show a polytypic pattern of kappa and lambda light chain expression by ARNULFO. ? Note: Histologic sections show generally preserved lymph node architecture with patent sinuses, reactive follicular hyperplasia and a prominent population of plasma cells. Flow cytometry revealed no monotypic B cell population and no aberrant T cell population. Immunohistochemical and ARNULFO studies support interpretation of the lymphoid follicles as reactive germinal centers (lacking expression of BCL2) and show that the plasma cell population is polytypic. No carcinoma is identified by morphology or on a cytokeratin immunohistochemical study on a maintenance representative tissue block. ? The morphologic and immunophenotypic findings are consistent with a reactive lymph node in this core biopsy specimen. Clinical correlation and follow-up is recommended. If the patient's adenopathy persists or worsens and/or if there is clinical concern for a neoplastic process at this site, additional sampling (such as excisional biopsy) could be considered, as clinically indicated. ? Lymph node, left axilla, flow cytometry (technical component performed at [facility]): No monotypic B cell population identified. A majority of the lymphocytes are CD3-positive T cells including CD4 positive and CD8 positive subsets (CD4:CD8 ratio 8.8) without diagnostic phenotypic aberrancy. A distinct population of plasma cells with expression of CD19, CD45, and CD38 without significant expression of CD20 or CD56 is present. ? Comments: A limited flow cytometry panel is performed. B-cells are polyclonal and T-cells have no loss of T-cell antigens. Although the plasma cells are without diagnostic phenotypic aberrancy in this flow cytometry study, correlation with morphologic, immunohistochemical and In situ hybridization (ARNULFO) findings is recommended. (See above.) ? The flow cytometry results do not support a diagnosis of a B- or T-cell lymphoproliferative disorder. However, Hodgkin lymphoma, some large cell lymphomas, and non-hematopoietic tumors cannot be excluded by flow cytometry and correlation with morphology, clinical history, and other diagnostic information is recommended. CONCORDANCE: The final pathology results and imaging findings are concordant ASSESSMENT: BI-RADS 2: BENIGN RECOMMENDATION(S): 1: Ultrasound follow-up LEFT in 3 months. The patient has a strong family history of breast cancer. Continued high risk screening recommended. COMMUNICATION: Dr. Rice notified the patient of the results and recommendations at 1212 on 04/02/25 Addendum: BREAST DENSITY: C - The breasts are heterogeneously dense which may obscure small masses. BI-RADS CATEGORY: 2 - BENIGN RECOMMENDATION: Screening bilateral mammogram is recommended in 1 year. Diagnostic Ultrasound in 6 Months is recommended for the Left Breast. -------- ADDENDUM -------- Dictated By: Babak Rice Dictated Date: 04/02/2025 07:55 ET Assigned Physician: Babak Rice Reviewed and Electronically Signed By: Babak Rice Signed Date: 04/02/2025 12:12 ET Workstation ID: [id number] Transcribed By: Self Edit Transcribed Date: 04/02/2025 11:44 ET Impressions 03/23/2025 2:54 PM EDT ULTRASOUND was used to localize and guide left infraclavicular lymph node biopsy. ULTRASOUND was used to guide placement of a biopsy site marker. There was no evidence of immediate complication. Specimens submitted in formalin and in RPMI. Postprocedure mammography was not performed. An addendum will be generated when the pathology results become available RECOMMENDATION: Pathology pending for the left breast. Location: [address], [address] -------- FINAL REPORT -------- Dictated By: Babak Rice Dictated Date: 03/23/2025 14:50 ET Assigned Physician: Babak Rice Reviewed and Electronically Signed By: Babak Rice Signed Date: 03/23/2025 14:54 ET Workstation ID: [id number] Transcribed By: Self Edit Transcribed Date: 03/23/2025 14:50 ET Narrative 03/23/2025 2:54 PM EDT EXAM: ULTRASOUND GUIDED BREAST BIOPSY, LEFT INFRACLAVICULAR LYMPH NODE BIOPSY SITE MARKER PLACEMENT : Biopsy site marker was placed POSTPROCEDURE MAMMOGRAPHY: Was not performed EXAM DATE AND TIME: 03/23/2025 1:18 PM HISTORY: Enlarged infraclavicular left axillary lymph node. Tissue diagnosis requested PROCEDURE: Informed consent was obtained. A procedure pause was performed including patient identification using 3 identifiers. Preprocedure imaging demonstrated: An enlarged lymph node in the left infraclavicular region. Careful preprocedure planning was performed to assure no major vascular structures were injured. Using sterile technique and lidocaine anesthesia, ultrasound-guided biopsy of the left infraclavicular lymph node was performed from a medial approach. A 14 gauge Spring-loaded core biopsy device was used. There was documentation of appropriate needle placement with digital archive. The major blood vessels were visualized and were not traversed and there was no evidence of bleeding or hematoma during or after the procedure. SPECIMEN RADIOGRAPHY: Was not performed. 3 specimens were placed in formalin and submitted for pathologic evaluation. The final specimen was submitted directly into [facility] for potential flow cytometry A radiopaque marker was deployed at the site for future reference. BIOPSY SITE MARKER SHAPE: BARREL Upon completion of the procedure, pressure was applied until adequate hemostasis was obtained. The patient tolerated the procedure well and was discharged in good condition after being educated regarding post procedure care and instructions and contact information should she be concerned about a complication. An addendum will be generated when the pathology results become available. Postprocedure mammography: Was deferred The area of concern would not be able to be included on mammography. Landon Akhtar MD [facility] PROCEDURES Edited Result - Final * .PATHOLOGIST REVIEW FLOW CYTOMETRY (03/23/2025 2:15 PM EDT) Pathologist Interpretation Flow Cytometry Lymph node, left axilla, flow cytometry (technical component performed at [facility]): Diagnosis: No monotypic B cell population identified. A majority of the lymphocytes are CD3-positive T cells including CD4 positive and CD8 positive subsets (CD4:CD8 ratio 8.8) without diagnostic phenotypic aberrancy. A distinct population of plasma cells with expression of CD19, CD45, and CD38 without significant expression of CD20 or CD56 is present. Comments: A limited flow cytometry panel is performed. B-cells are polyclonal and T-cells have no loss of T-cell antigens. Although the plasma cells are without diagnostic phenotypic aberrancy in this flow cytometry study, correlation with morphologic, immunohistochemical and In situ hybridization (ARNULFO) findings in the accompanying core biopsy specimen (see separate [facility] Pathology Report, [id number]) is recommended. The flow cytometry results do not support a diagnosis of a B- or T-cell lymphoproliferative disorder. However, Hodgkin lymphoma, some large cell lymphomas, and non-hematopoietic tumors cannot be excluded by flow cytometry and correlation with morphology, clinical history, and other diagnostic information is recommended. Flow Differential (%) and Population Analysis: Lymphocytes: 93.9% T-cells (70% of lymphoid cells) show a CD4:CD8 ratio of 8.8 without overt phenotypic abnormality. NK-cells (1% of lymphoid cells) are unremarkable. Mature B-cells (27% of lymphoid cells) are polyclonal (kappa:lambda ratio of 2.0). Monocytes: 2.8% Monocytes are not evaluated due to limited antibody panel. Granulocytes: 2.8% Granulocytes are not evaluated due to limited antibody panel. CD45 Dim: 0.4% CD34+ cells are not detected. CD45 Ne.1% Non-hematopoietic cells, erythroids and cell debris. Plasma Cells: 2.9% CD34+: 0.1% Specimen Viability: 96.5 % Cell Yield: 0.82 Million Markers Performed: CD2, CD3, CD4, CD5, CD7, CD8, CD10, CD11c, CD19, CD20, CD23, CD34, CD38, CD45, CD56, Panora, Lambda (17 Markers) 9:12 AM EDT [facility] Lymph Node Structure of left axillary region / Unknown 03/23/2025 2:15 PM EDT 03/26/2025 9:10 AM EDT Narrative [facility] - 03/26/2025 9:12 AM EDT The Accessioning Component and Technical Component Processing of this test was completed at [facility] [employer] , [address] [place], [place] / [address] / [phone] / CLIA # [id number] / [employer]): Ameena Interiano MD. The Technical Component Analysis of this test was completed at [facility] [address], [place] / [address] / [phone] / CLIA # [id number] / [employer]): Andrew Garcia M.D. The Professional Component of this test was completed by Khari Taylor M.D. at [facility], [facility] Department of Pathology, [place] [address] / / . This test was developed and its performance characteristics determined by the performing laboratory. It has not been cleared or approved by the U.S. Food and Drug Administration. The FDA has determined that such clearance or approval is not necessary. This test is used for clinical purposes. It should not be regarded as investigational or for research. This laboratory is certified under the Clinical Laboratory Improvement Amendments of 1988 (CLIA) as qualified to perform high complexity clinical testing. us Babak Rice MD LAB BLOOD ORDERABLES Final Re sult Performing Organization Address City/[facility]/ZIP Co de Phone Number [facility]OSP[facility] LAB [address] [place] [address], [place] [phone] * Leukemia, lymphoma evaluation by flow cytometry (03/23/2025 2:15 PM EDT) Scan Result See Scanned Result 03/26/2025 9:12 AM EDT EXTERNAL LAB (NON-INTERFAC ED) Lymph Node Structure of left axillary region / Unknown 03/23/2025 2:15 PM EDT 03/23/2025 4:08 PM EDT Narrative EXTERNAL LAB (NON-INTERFACED) - 03/26/2025 9:12 AM EDT us Babak Rice MD LAB MOLECULAR DIAGNOSTICS ORD ERABLES Final Result Performing Organization Address City/[facility]/ZIP Co de Phone Number EXTERNAL LAB (NON-INTERFACED) * Tissue exam (03/23/2025 2:15 PM EDT) Final Diagnosis Lymph node, left axilla, ultrasound-guided core biopsy: - Lymph node with florid follicular lymphoid hyperplasia and a prominent polytypic plasma cell population. (See note.) - Flow cytometric evaluation reveals no monotypic B cell population and no aberrant T cell population. (See below.) - Immunohistochemical and in situ hybridization studies are performed for correlation with morphologic and flow cytometric findings and the results are as follows: Cytokeratin HARLEEN: Negative. CD3: Subset of small lymphocytes immunoreactive (predominantly interfollicular and some intra follicular). CD20: Follicle center cells and mantle zone lymphocytes immunoreactive. CD138: Abundant plasma cells are immunoreactive. BCL-2: Follicle center cells are negative. Panora light chain (ARNULFO): Subset of plasma cells are positive (greater than lambda). Lambda light chain (ARNULFO): Subset of plasma cells are positive. Interpretation: There is no epithelial cell population identified by Cytokeratin immunohistochemistry (No carcinoma is identified.) The lymphocytes show a generally account services manager distribution of CD3-positive T cells and [id number] B cells, and follicle center cells are negative for BCL2, supporting the morphologic impression of reactive germinal centers. The CD138 highlights many plasma cells, which show a polytypic pattern of kappa and lambda light chain expression by ARNULFO. Note: Histologic sections show generally preserved lymph node architecture with patent sinuses, reactive follicular hyperplasia and a prominent population of plasma cells. Flow cytometry revealed no monotypic B cell population and no aberrant T cell population. Immunohistochemical and ARNULFO studies support interpretation of the lymphoid follicles as reactive germinal centers (lacking expression of BCL2) and show that the plasma cell population is polytypic. No carcinoma is identified by morphology or on a cytokeratin immunohistochemical study on a maintenance representative tissue block. The morphologic and immunophenotypic findings are consistent with a reactive lymph node in this core biopsy specimen. Clinical correlation and follow-up is recommended. If the patient's adenopathy persists or worsens and/or if there is clinical concern for a neoplastic process at this site, additional sampling (such as excisional biopsy) could be considered, as clinically indicated. Lymph node, left axilla, flow cytometry (technical component performed at [facility]): No monotypic B cell population identified. A majority of the lymphocytes are CD3-positive T cells including CD4 positive and CD8 positive subsets (CD4:CD8 ratio 8.8) without diagnostic phenotypic aberrancy. A distinct population of plasma cells with expression of CD19, CD45, and CD38 without significant expression of CD20 or CD56 is present. Comments: A limited flow cytometry panel is performed. B-cells are polyclonal and T-cells have no loss of T-cell antigens. Although the plasma cells are without diagnostic phenotypic aberrancy in this flow cytometry study, correlation with morphologic, immunohistochemical and In situ hybridization (ARNULFO) findings is recommended. (See above.) The flow cytometry results do not support a diagnosis of a B- or T-cell lymphoproliferative disorder. However, Hodgkin lymphoma, some large cell lymphomas, and non-hematopoietic tumors cannot be excluded by flow cytometry and correlation with morphology, clinical history, and other diagnostic information is recommended. Flow Differential (%) and Population Analysis: Lymphocytes: 93.9% T-cells (70% of lymphoid cells) show a CD4:CD8 ratio of 8.8 without overt phenotypic abnormality. NK-cells (1% of lymphoid cells) are unremarkable. Mature B-cells (27% of lymphoid cells) are polyclonal (kappa:lambda ratio of 2.0). Monocytes: 2.8% Monocytes are not evaluated due to limited antibody panel. Granulocytes: 2.8% Granulocytes are not evaluated due to limited antibody panel. CD45 Dim: 0.4% CD34+ cells are not detected. CD45 Ne.1% Non-hematopoietic cells, erythroids and cell debris. Plasma Cells: 2.9% CD34+: 0.1% Specimen Viability: 96.5 % Cell Yield: 0.82 Million Markers Performed: CD2, CD3, CD4, CD5, CD7, CD8, CD10, CD11c, CD19, CD20, CD23, CD34, CD38, CD45, CD56, Panora, Lambda (17 Markers) 5 1:01 PM EDT [facility] Gross Description A. Axilla, Left, lymph node: Labeled left axilla lymph node . Received in formalin are six disrupted pink-white soft tissue cores, ranging from 0.2 x 0.1 cm to 0.7 x 0.1 cm, which are wrapped in paper and submitted in toto in two cassettes, three pieces each, x 2 with 15 unstained slides cut at 3 m between levels. Additionally received in the specimen is a vial of RPMI containing a soft tissue core which is submitted to [facility] in [facility] for flow cytometry. One air dried touch prep is made for internal triage purposes. JERARDO 5 1:01 PM EDT [facility] Disclaimer NOTE: The immunohistochemical tests and in situ hybridization tests were developed and their performance characteristics were determined by [facility]. They have not been cleared or approved by the U.S. Food and Drug Administration. The FDA has determined that such clearance or approval is not necessary. These tests are used for clinical purposes. They should not be regarded as investigational or for research. This laboratory is certified under the Clinical Laboratory Improvement Amendments of 1988 (CLIA) as qualified to perform high complexity clinical laboratory testing. (controls appropriate) Unless otherwise specified, all tissue is 10% NB formalin fixed and paraffin embedded. 1:01 PM EDT [facility] Lymph Node Structure of left axillary region / Unknown 03/23/2025 2:15 PM EDT 03/23/2025 3:01 PM EDT us Baabk Rice MD LAB PATHOLOGY ORDERABLES Kari schaefer Result [facility] [address] [place] [address], * (ABNORMAL) MG Mammo Digital Diagnostic w Flavio bilat (03/14/2025 2:18 PM EDT) Anatomical Region Laterality Modality Breast Bilateral Mammography 03/14/2025 3:34 PM EDT Impressions 03/14/2025 3:57 PM EDT There is artifact related to the biopsy site marker in the medial left breast on the Tomosynthesis. There are suspicious lymph nodes in the left infraclavicular region and likely in the uppermost left axilla. There is a hypoechoic ultrasound abnormality in the expected region of the previous MR directed left breast biopsy. I recommend ultrasound-guided biopsy of the most prominent infraclavicular left lymph node. Consider assessment with flow cytometry as well as histology. Further evaluation of the medial left breast ultrasound finding may be warranted depending the pathology results ASSESSMENT: BI-RADS 4: SUSPICIOUS RECOMMENDATION(S): 1: Needle biopsy recommended LEFT using ultrasound localization and guidance. Consider sending the material for flow cytometry as well as histology. [facility]amm[facility] location: [facility] [address] [place], [address] -------- FINAL REPORT -------- Dictated By: Babak Rice Dictated Date: 03/14/2025 15:34 ET Assigned Physician: Babak Rice Reviewed and Electronically Signed By: Babak Rice Signed Date: 03/14/2025 15:57 ET Workstation ID: [id number] Transcribed By: Self Edit Transcribed Date: 03/14/2025 15:44 ET Narrative 03/14/2025 3:57 PM EDT EXAM: DIAGNOSTIC MAMMOGRAPHY, BILATERAL ULTRASOUND: DIAGNOSTIC ULTRASOUND, BILATERAL HISTORY: High risk of developing breast cancer. Enlarged axillary lymph nodes. Previous MR directed left breast biopsy. Family history of breast cancer; mother and sister. COMPARISON: Portions of breast MRI 09/05/24. Portions of chest CT 12/26/24 Previous mammography 08/19/24, 07/17/23, 07/11/22, 07/05/21, 07/04/20 TECHNIQUE: Synthesized CC and MLO projections of each breast. Tomosynthesis of each breast in the CC and MLO projections. ADDITIONAL IMAGING: None High-frequency linear transducer ultrasound of each breast targeted to the area(s) of clinical concern. Computer-aided detection was employed with the [employer] 3-D. TISSUE DENSITY: The breasts are heterogeneously dense, which may obscure small masses. (BI-RADS category C) FINDINGS: MAMMOGRAPHY: RIGHT BREAST: No suspicious mass. No suspicious calcification. No distortion. No suspicious interval change. LEFT BREAST: There is artifact related to the biopsy site marker in the medial breast. There is no large abnormality in the medial left breast. ULTRASOUND: RIGHT AXILLA: There are multiple morphologically normal-appearing right axillary lymph nodes. There are prominent fatty pat. Thin cortex. No focal area of cortical thickening. No suspicious mass in the right axilla LEFT BREAST: 9 o'clock position, 4 cm from left nipple There is a somewhat ill-defined hypoechoic area of altered echotexture. There is some attenuation of sound. There is no abnormal color signal. Despite careful assessment I was unable to confidently identify a bright reflector/biopsy site marker. This may or may not correlate with the area targeted on MRI for biopsy. This is a nonspecific finding. 03/14/25-0.9 cm LEFT AXILLA: There are multiple left axillary lymph nodes. There is a prominent left axillary lymph node with eccentric cortical thickening which may correlate with an area of focal thickening on previous imaging. In the extreme uppermost axilla or more likely in the infraclavicular region on the left there is a homogeneous hypoechoic oval mass with long axis parallel. There is no fatty hilum. 03/14/25-short axis I.0 cm. This is a suspicious finding. This may correlate with an infraclavicular lymph node demonstrated on previous imaging. An additional nonenlarged but nonspecific infraclavicular lymph node has a rounded contour and measures 0.5 cm. Procedure Note Babak Rice MD - 03/14/2025 EXAM: DIAGNOSTIC MAMMOGRAPHY, BILATERAL ULTRASOUND: DIAGNOSTIC ULTRASOUND, BILATERAL HISTORY: High risk of developing breast cancer. Enlarged axillary lymphnodes. Previous MR directed left breast biopsy. Family history of breast cancer; mother and sister. COMPARISON: Portions of breast MRI 09/05/24. Portions of chest CT12/26/24 Previous mammography 08/19/24, 07/17/23, 07/11/22, 07/05/21, 07/04/20 TECHNIQUE: Synthesized CC and MLO projections of each breast.Tomosynthesis of each breast in the CC and MLO projections. ADDITIONAL IMAGING: None High-frequency linear transducer ultrasound of each breast targeted to thearea(s) of clinical concern. Computer-aided detection was employed with the [employer] 3-D. TISSUE DENSITY: The breasts are heterogeneously dense, which may obscuresmall masses. (BI-RADS category C) FINDINGS: MAMMOGRAPHY: RIGHT BREAST: No suspicious mass. No suspicious calcification. No distortion. Nosuspicious interval change. LEFT BREAST: There is artifact related to the biopsy site marker in the medial breast.There is no large abnormality in the medial left breast. ULTRASOUND: RIGHT AXILLA: There are multiple morphologically normal-appearing right axillary lymphnodes. There are prominent fatty pat. Thin cortex. No focal area ofcortical thickening. No suspicious mass in the right axilla LEFT BREAST: 9 o'clock position, 4 cm from left nipple There is a somewhat ill-defined hypoechoic area of altered echotexture.There is some attenuation of sound. There is no abnormal color signal.Despite careful assessment I was unable to confidently identify a brightreflector/biopsy site marker. This may or may not correlate with the areatargeted on MRI for biopsy. This is a nonspecific finding. 03/14/25-0.9 cm LEFT AXILLA: There are multiple left axillary lymph nodes. There is a prominent left axillary lymph node with eccentric corticalthickening which may correlate with an area of focal thickening onprevious imaging. In the extreme uppermost axilla or more likely in the infraclavicularregion on the left there is a homogeneous hypoechoic oval mass with longaxis parallel. There is no fatty hilum. 03/14/25-short axis I.0 cm. This is a suspicious finding. This may correlate with an infraclavicularlymph node demonstrated on previous imaging. An additional nonenlarged but nonspecific infraclavicular lymph node has arounded contour and measures 0.5 cm. IMPRESSION: There is artifact related to the biopsy site marker in the medial leftbreast on the Tomosynthesis. There are suspicious lymph nodes in the left infraclavicular region andlikely in the uppermost left axilla. There is a hypoechoic ultrasound abnormality in the expected region of theprevious MR directed left breast biopsy. I recommend ultrasound-guided biopsy of the most prominent infraclavicularleft lymph node. Consider assessment with flow cytometry as well ashistology. Further evaluation of the medial left breast ultrasound finding may bewarranted depending the pathology results ASSESSMENT: BI-RADS 4: SUSPICIOUS RECOMMENDATION(S): 1: Needle biopsy recommended LEFT using ultrasound localization andguidance. Consider sending the material for flow cytometry as well ashistology. [facility]amm[facility] location: [facility] [address], [address] -------- FINAL REPORT -------- Dictated By: Babak Rice Dictated Date: 03/14/2025 15:34 ET Assigned Physician: Babak Rice Reviewed and Electronically Signed By: Babak Rice Signed Date: 03/14/2025 15:57 ET Workstation ID: [id number] Transcribed By: Self Edit Transcribed Date: 03/14/2025 15:44 ET us [place] M Kawar MD IMG BI PROCEDURES Final Result * (ABNORMAL) US Breast Limited bilat (03/14/2025 2:14 PM EDT) Anatomical Region Laterality Modality Breast Bilateral Ultrasound 03/14/2025 3:34 PM EDT Impressions 03/14/2025 3:57 PM EDT There is artifact related to the biopsy site marker in the medial left breast on the Tomosynthesis. There are suspicious lymph nodes in the left infraclavicular region and likely in the uppermost left axilla. There is a hypoechoic ultrasound abnormality in the expected region of the previous MR directed left breast biopsy. I recommend ultrasound-guided biopsy of the most prominent infraclavicular left lymph node. Consider assessment with flow cytometry as well as histology. Further evaluation of the medial left breast ultrasound finding may be warranted depending the pathology results ASSESSMENT: BI-RADS 4: SUSPICIOUS RECOMMENDATION(S): 1: Needle biopsy recommended LEFT using ultrasound localization and guidance. Consider sending the material for flow cytometry as well as histology. Mammography location: [facility] [address], [address] -------- FINAL REPORT -------- Dictated By: Babak Rice Dictated Date: 03/14/2025 15:34 ET Assigned Physician: Babak Rice Reviewed and Electronically Signed By: Babak Rice Signed Date: 03/14/2025 15:57 ET Workstation ID: [id number] Transcribed By: Self Edit Transcribed Date: 03/14/2025 15:44 ET Narrative 03/14/2025 3:57 PM EDT EXAM: DIAGNOSTIC MAMMOGRAPHY, BILATERAL ULTRASOUND: DIAGNOSTIC ULTRASOUND, BILATERAL HISTORY: High risk of developing breast cancer. Enlarged axillary lymph nodes. Previous MR directed left breast biopsy. Family history of breast cancer; mother and sister. COMPARISON: Portions of breast MRI 09/05/24. Portions of chest CT 12/26/24 Previous mammography 08/19/24, 07/17/23, 07/11/22, 07/05/21, 07/04/20 TECHNIQUE: Synthesized CC and MLO projections of each breast. Tomosynthesis of each breast in the CC and MLO projections. ADDITIONAL IMAGING: None High-frequency linear transducer ultrasound of each breast targeted to the area(s) of clinical concern. Computer-aided detection was employed with the [employer] 3-D. TISSUE DENSITY: The breasts are heterogeneously dense, which may obscure small masses. (BI-RADS category C) FINDINGS: MAMMOGRAPHY: RIGHT BREAST: No suspicious mass. No suspicious calcification. No distortion. No suspicious interval change. LEFT BREAST: There is artifact related to the biopsy site marker in the medial breast. There is no large abnormality in the medial left breast. ULTRASOUND: RIGHT AXILLA: There are multiple morphologically normal-appearing right axillary lymph nodes. There are prominent fatty pat. Thin cortex. No focal area of cortical thickening. No suspicious mass in the right axilla LEFT BREAST: 9 o'clock position, 4 cm from left nipple There is a somewhat ill-defined hypoechoic area of altered echotexture. There is some attenuation of sound. There is no abnormal color signal. Despite careful assessment I was unable to confidently identify a bright reflector/biopsy site marker. This may or may not correlate with the area targeted on MRI for biopsy. This is a nonspecific finding. 03/14/25-0.9 cm LEFT AXILLA: There are multiple left axillary lymph nodes. There is a prominent left axillary lymph node with eccentric cortical thickening which may correlate with an area of focal thickening on previous imaging. In the extreme uppermost axilla or more likely in the infraclavicular region on the left there is a homogeneous hypoechoic oval mass with long axis parallel. There is no fatty hilum. 03/14/25-short axis I.0 cm. This is a suspicious finding. This may correlate with an infraclavicular lymph node demonstrated on previous imaging. An additional nonenlarged but nonspecific infraclavicular lymph node has a rounded contour and measures 0.5 cm. Procedure Note Babak Rice MD - 03/14/2025 EXAM: DIAGNOSTIC MAMMOGRAPHY, BILATERAL ULTRASOUND: DIAGNOSTIC ULTRASOUND, BILATERAL HISTORY: High risk of developing breast cancer. Enlarged axillary lymphnodes. Previous MR directed left breast biopsy. Family history of breast cancer; mother and sister. COMPARISON: Portions of breast MRI 09/05/24. Portions of chest CT12/26/24 Previous mammography 08/19/24, 07/17/23, 07/11/22, 07/05/21, 07/04/20 TECHNIQUE: Synthesized CC and MLO projections of each breast.Tomosynthesis of each breast in the CC and MLO projections. ADDITIONAL IMAGING: None High-frequency linear transducer ultrasound of each breast targeted to thearea(s) of clinical concern. Computer-aided detection was employed with the [employer] 3-D. TISSUE DENSITY: The breasts are heterogeneously dense, which may obscuresmall masses. (BI-RADS category C) FINDINGS: MAMMOGRAPHY: RIGHT BREAST: No suspicious mass. No suspicious calcification. No distortion. Nosuspicious interval change. LEFT BREAST: There is artifact related to the biopsy site marker in the medial breast.There is no large abnormality in the medial left breast. ULTRASOUND: RIGHT AXILLA: There are multiple morphologically normal-appearing right axillary lymphnodes. There are prominent fatty pat. Thin cortex. No focal area ofcortical thickening. No suspicious mass in the right axilla LEFT BREAST: 9 o'clock position, 4 cm from left nipple There is a somewhat ill-defined hypoechoic area of altered echotexture.There is some attenuation of sound. There is no abnormal color signal.Despite careful assessment I was unable to confidently identify a brightreflector/biopsy site marker. This may or may not correlate with the areatargeted on MRI for biopsy. This is a nonspecific finding. 03/14/25-0.9 cm LEFT AXILLA: There are multiple left axillary lymph nodes. There is a prominent left axillary lymph node with eccentric corticalthickening which may correlate with an area of focal thickening onprevious imaging. In the extreme uppermost axilla or more likely in the infraclavicularregion on the left there is a homogeneous hypoechoic oval mass with longaxis parallel. There is no fatty hilum. 03/14/25-short axis I.0 cm. This is a suspicious finding. This may correlate with an infraclavicularlymph node demonstrated on previous imaging. An additional nonenlarged but nonspecific infraclavicular lymph node has arounded contour and measures 0.5 cm. IMPRESSION: There is artifact related to the biopsy site marker in the medial leftbreast on the Tomosynthesis. There are suspicious lymph nodes in the left infraclavicular region andlikely in the uppermost left axilla. There is a hypoechoic ultrasound abnormality in the expected region of theprevious MR directed left breast biopsy. I recommend ultrasound-guided biopsy of the most prominent infraclavicularleft lymph node. Consider assessment with flow cytometry as well ashistology. Further evaluation of the medial left breast ultrasound finding may bewarranted depending the pathology results ASSESSMENT: BI-RADS 4: SUSPICIOUS RECOMMENDATION(S): 1: Needle biopsy recommended LEFT using ultrasound localization andguidance. Consider sending the material for flow cytometry as well ashistology. [facility]amm[facility] location: [facility] [address] [place], [address] -------- FINAL REPORT -------- Dictated By: Babak Rice Dictated Date: 03/14/2025 15:34 ET Assigned Physician: Babak Rice Reviewed and Electronically Signed By: Babak Rice Signed Date: 03/14/2025 15:57 ET Workstation ID: [id number] Transcribed By: Self Edit Transcribed Date: 03/14/2025 15:44 ET us Landon Akhtar MD IMG US PROCEDURES Final Result * Pathologist Review Immunofixation (01/29/2025 7:57 AM EDT) Pathologist Interpretation Elaine Sandra MD 02/01/2025 10:39 AM EDT [facility] Blood Venous blood specimen / Unknown Venipuncture / Unknown 01/29/2025 7:57 AM EDT 01/29/2025 9:28 AM EDT Neil Castaneda MD LAB BLOOD ORDERABLES Final Result [facility] [address] [place] [address], [place] [phone] * PATHOLOGIST REVIEW PROTEIN ELECTROPHORESIS (01/29/2025 7:57 AM EDT) Pathologist Interpretation Elaine Sandra MD 01/31/2025 3:03 PM EDT [facility] Blood Venous blood specimen / Unknown Venipuncture / Unknown 01/29/2025 7:57 AM EDT 01/29/2025 9:28 AM EDT Neil Castaneda MD LAB BLOOD ORDERABLES Final Result [facility] [address] [place] [address], [place] [phone] * (ABNORMAL) Panora-lambda free light chains, quantitative (01/29/2025 7:57 AM EDT) Pathologist [facility] Panora Free Light Chain 5.38(H) 0.33 - 1.94 mg/dL 01/31/2025 10:45 AM EDT [facility] Lambda Free Light Chain 4.48(H) 0.57 - 2.63 mg/dL 01/31/2025 10:45 AM EDT [facility] Panora/Lambda FLC Ratio 1.20 0.26 - 1.65 01/31/2025 10:45 AM EDT [facility] Comment: Test performed at [facility], [address] , [place] [address] Elen Miguel MD, PhD - Third Mate Blood Venous blood specimen / Unknown Venipuncture / Unknown 01/29/2025 7:57 AM EDT 01/29/2025 9:28 AM EDT Neil Castaneda MD LAB BLOOD ORDERABLES Final Result [facility] [address] [place] [address] * (ABNORMAL) CBC auto differential (01/29/2025 7:57 AM EDT) Pathologist [facility] WBC 7.5 4.8 - 10.8 K/[facility] HEMETOLOGY METHOD 01/29/2025 9:[facility] RBC 4.30 3.80 - 4.80 M/mcL LAB HEMETOLOGY METHOD 01/29/2025 9:36 AM [facility] Hemoglobin 11.4(L) 11.5 - 16.0 g/dL LAB HEMETOLOGY METHOD 01/29/2025 9:36 AM [facility] Hematocrit 36.4 35.0 - 47.0 % LAB HEMETOLOGY METHOD 01/29/2025 9:36 AM [facility] MCV 84.3 79.0 - 98.0 FL LAB HEMETOLOGY METHOD 01/29/2025 9:36 AM [facility] MCH 26.4(L) 27.0 - 32.0 pcg LAB HEMETOLOGY METHOD 01/29/2025 9:36 AM [facility] MCHC 31.3(L) 32.0 - 37.0 g/dL LAB HEMETOLOGY METHOD 01/29/2025 9:36 AM [facility] RDW 15.5(H) 11.0 - 15.0 % LAB HEMETOLOGY METHOD 01/29/2025 9:36 AM [facility] Platelets 296 130 - 400 K/mcL LAB HEMETOLOGY METHOD 01/29/2025 9:36 AM [facility] MPV 10.4 7.0 - 11.0 FL LAB HEMETOLOGY METHOD 01/29/2025 9:36 AM [facility] NRBC 0.0 <1.0 % LAB HEMETOLOGY METHOD 01/29/2025 9:36 AM [facility] NRBC Absolute 0.00 <0.10 K/mcL LAB HEMETOLOGY METHOD 01/29/2025 9:36 AM [facility] Neutrophils Relative 70.1 % LAB HEMETOLOGY METHOD 01/29/2025 9:36 AM EDT [facility] Lymphocytes Relative 17.2 % LAB HEMETOLOGY METHOD 01/29/2025 9:36 AM [facility] Monocytes Relative 7.7 % LAB HEMETOLOGY METHOD 01/29/2025 9:36 AM [facility] Eosinophils Relative 4.1 % LAB HEMETOLOGY METHOD 01/29/2025 9:36 AM [facility] Basophils Relative 0.5 % LAB HEMETOLOGY METHOD 01/29/2025 9:36 AM [facility] Immature Granulocytes Relative 0.4 % LAB HEMETOLOGY METHOD 01/29/2025 9:36 AM [facility] Neutrophils Absolute 5.25 1.50 - 7.00 K/mcL LAB HEMETOLOGY METHOD 01/29/2025 9:36 AM [facility] Lymphocytes Absolute 1.29 1.00 - 5.00 K/mcL LAB HEMETOLOGY METHOD 01/29/2025 9:36 AM [facility] Monocytes Absolute 0.58 0.20 - 1.00 K/mcL LAB HEMETOLOGY METHOD 01/29/2025 9:36 AM [facility] Eosinophils Absolute 0.31 0.00 - 0.50 K/mcL LAB HEMETOLOGY METHOD 01/29/2025 9:36 AM [facility] Basophils Absolute 0.04 0.00 - 0.20 K/mcL LAB HEMETOLOGY METHOD 01/29/2025 9:36 AM [facility] Immature Granulocytes Absolute 0.03 0.00 - 0.03 K/mcL LAB HEMETOLOGY METHOD 01/29/2025 9:36 AM [facility] Blood Venous blood specimen / Unknown Venipuncture / Unknown 01/29/2025 7:57 AM EDT 01/29/2025 9:26 AM EDT Neil Castaneda MD LAB BLOOD ORDERABLES Final Result [facility] [address] [place] [address], [place] [phone] * Immunofixation electrophoresis serum (01/29/2025 7:57 AM EDT) [facility] Immunofixation Result, Serum IgG Lambda monoclonal immunoglobulins detected. LAB CHEMISTRY METHOD 02/01/2025 10:39 AM EDT [facility] Blood Venous blood specimen / Unknown Venipuncture / Unknown 01/29/2025 7:57 AM EDT 01/29/2025 9:28 AM EDT Neil Castaneda MD LAB BLOOD ORDERABLES Final Result Performing Organization Address City/[facility]/ZIP Co de Phone Number [facility] [address] [place] [address], [place] [phone] * (ABNORMAL) Protein electrophoresis, serum (01/29/2025 7:57 AM EDT) [facility] Total Protein 8.2(H) 6.0 - 8.0 g/dL LAB CHEMISTRY METHOD 01/31/2025 3:03 PM EDT [facility] Albumin, Serum 3.6 2.9 - 4.1 g/dL LAB CHEMISTRY METHOD 01/31/2025 3:03 PM EDT [facility] Alpha 1 Globulin (g/dL) 0.3 0.1 - 0.5 g/dL LAB CHEMISTRY METHOD 01/31/2025 3:03 PM EDT [facility] Alpha 2 Globulin (g/dL) 1.2 0.7 - 1.5 g/dL LAB CHEMISTRY METHOD 01/31/2025 3:03 PM EDT [facility] Beta (g/dL) 1.1 0.7 - 1.5 g/dL LAB CHEMISTRY METHOD 01/31/2025 3:03 PM EDT [facility] Gamma Globulin (g/dL) 2.1(H) 0.7 - 1.9 g/dL LAB CHEMISTRY METHOD 01/31/2025 3:03 PM EDT [facility] PARAPROTEIN 0.3 g/dL LAB CHEMISTRY METHOD 01/31/2025 3:03 PM EDT [facility] SPEP Interpretation Monoclonal gammopathy Abnormal pattern with M-spike of gamma globulin mobility. Serum Immunofixation performed on this specimen demonstrated IgG Lambda monoclonal protein. LAB CHEMISTRY METHOD 01/31/2025 3:03 PM EDT [facility] Blood Venous blood specimen / Unknown Venipuncture / Unknown 01/29/2025 7:57 AM EDT 01/29/2025 9:28 AM EDT Neil Castaneda MD LAB BLOOD ORDERABLES Final Result Performing Organization Address [facility]/ZIP Co de Phone Number [facility] [address] [place] [address], [place] [phone] * (ABNORMAL) Protein, total (01/29/2025 7:57 AM EDT) Total Protein 8.2(H) 6.0 - 8.0 g/dL LAB CHEMISTRY METHOD 01/29/2025 11:30 AM EDT [facility] Blood Venous blood specimen / Unknown Venipuncture / Unknown 01/29/2025 7:57 AM EDT 01/29/2025 9:28 AM EDT us Neil Castaneda MD LAB BLOOD ORDERABLES Final Result [facility] [address] [place] [address], [place] [phone] * Immunoglobulin IgA (01/29/2025 7:57 AM EDT) IgA 311 61 - 348 mg/dL LAB CHEMISTRY METHOD 01/29/2025 11:15 AM EDT [facility] Blood Venous blood specimen / Unknown Venipuncture / Unknown 01/29/2025 7:57 AM EDT 01/29/2025 9:29 AM EDT us Neil Castaneda MD LAB BLOOD ORDERABLES Final Result Performing Organization Address [facility]/ZIP Co de Phone Number [facility] [address] [place] [address], [place] [phone] * Immunoglobulin IgM (01/29/2025 7:57 AM EDT) IgM 90 23 - 259 mg/dL LAB CHEMISTRY METHOD 01/29/2025 11:15 AM EDT [facility] Blood Venous blood specimen / Unknown Venipuncture / Unknown 01/29/2025 7:57 AM EDT 01/29/2025 9:29 AM EDT us Neil Castaneda MD LAB BLOOD ORDERABLES Final Result Performing Organization Address [facility] Co de Phone Number [facility] [address] [place] [address], [place] [phone] * (ABNORMAL) Immunoglobulin IgG (01/29/2025 7:57 AM EDT) Total IgG 1,990(H) 549 - 1,584 mg/dL LAB CHEMISTRY METHOD 01/29/2025 11:15 AM EDT [facility] Blood Venous blood specimen / Unknown Venipuncture / Unknown 01/29/2025 7:57 AM EDT 01/29/2025 9:29 AM EDT us Neil Castaneda MD LAB BLOOD ORDERABLES Final Result Performing Organization Address [facility]/ZIP Co de Phone Number [facility] [address] [place] [address], [place] [phone] * (ABNORMAL) Comprehensive metabolic panel (01/29/2025 7:57 AM EDT) [facility] Signature Sodium 140 133 - 145 mmol/L LAB CHEMISTRY METHOD 01/29/2025 11:15 AM [facility] Potassium 4.2 3.5 - 5.5 mmol/L LAB CHEMISTRY METHOD 01/29/2025 11:15 AM [facility] Chloride 107 96 - 110 mmol/L LAB CHEMISTRY METHOD 01/29/2025 11:15 AM [facility] CO2 24 21 - 32 mmol/L LAB CHEMISTRY METHOD 01/29/2025 11:15 AM [facility] Anion Gap 9 3 - 11 LAB CHEMISTRY METHOD 01/29/2025 11:15 AM [facility] Glucose 109(H) 70 - 100 mg/dL LAB CHEMISTRY METHOD 01/29/2025 11:15 AM [facility] BUN 22 5 - 25 mg/dL LAB CHEMISTRY METHOD 01/29/2025 11:15 AM [facility] Creatinine 0.68 0.50 - 1.10 mg/dL LAB CHEMISTRY METHOD 01/29/2025 11:15 AM [facility] eGFR 99 >=60 mL/min/1. 73m2 LAB CHEMISTRY METHOD 01/29/2025 11:15 AM [facility] Comment:Calculation based on the Chronic Kidney Disease Epidemiology Collaboration (CKD-EPI) equation refit without adjustment for race. BUN/Creatinine Ratio 32.4 LAB CHEMISTRY METHOD 01/29/2025 11:15 AM [facility] Calcium 9.7 8.5 - 10.5 mg/dL LAB CHEMISTRY METHOD 01/29/2025 11:15 AM [facility] AST (SGOT) 17 10 - 42 unit/L LAB CHEMISTRY METHOD 01/29/2025 11:15 AM [facility] ALT (SGPT) 29 10 - 60 unit/L LAB CHEMISTRY METHOD 01/29/2025 11:15 AM EDT [facility] Alkaline Phosphatase 138(H) 42 - 121 unit/L LAB CHEMISTRY METHOD 01/29/2025 11:15 AM EDT [facility] Total Protein 8.2(H) 6.0 - 8.0 g/dL LAB CHEMISTRY METHOD 01/29/2025 11:15 AM EDT [facility] Albumin 3.4 3.2 - 5.0 g/dL LAB CHEMISTRY METHOD 01/29/2025 11:15 AM EDT [facility] Total Bilirubin 0.5 0.0 - 1.4 mg/dL LAB CHEMISTRY METHOD 01/29/2025 11:15 AM EDT [facility] Blood Venous blood specimen / Unknown Venipuncture / Unknown 01/29/2025 7:57 AM EDT 01/29/2025 9:29 AM EDT us Neil Castaneda MD LAB BLOOD ORDERABLES Final Result [facility] [address] [place] [address], * BD Bone Density DXA Axial Skeleton (12/11/2024 2:05 PM EDT) Anatomical Region Laterality Modality Wrist, Hip, L-spine Bone Densito metry 12/12/2024 9:29 AM EDT Narrative 12/12/2024 9:30 AM EDT BONE DENSITY (DEXA) Lumbar Spine T-score is -0.9. (SD relative to 20-29 y/o adult) Z-score is 0.6. (SD relative to age matched peers) This is considered normal by WHO criteria. Left Hip T-score is -1.3. Z-score is 0.1. This is considered osteopenia by WHO criteria. Comparison exam(s): Not available. Impressions: Osteopenia by WHO criteria. This patient has a 11% risk of major osteoporotic fracture and a 0.8% risk of hip fracture over the next 10 years. (World Health Organization Fracture Risk Assessment) [facility] Department of Internal Medicine recommends using National Osteoporosis Foundation (NOF) guidelines in treatment decisions related to osteoporosis. NOF guidelines suggest considering treatment for postmenopausal women and men aged 50 or older presenting with the following: History of hip or vertebral fracture. T-score = -2.5 (DXA) at the femoral neck, total hip, or spine, after appropriate evaluation to exclude secondary causes. Low bone mass (T-score between -1.0 and -2.5 at the femoral neck or spine) AND a 10-year probability of a hip fracture = 3% OR a 10-year probability of a major osteoporosis-related fracture = 20% based on the [place]-adapted WHO algorithm Please note that all treatment decisions require clinical judgment and consideration of individual patient factors, including patient preferences, co-morbidities, previous drug use, risk factors not captured in the FRAX model (e.g., frailty, falls, vitamin D deficiency, increased bone turnover, interval significant decline in bone density) and possible under- or over-estimation of fracture risk by FRAX. Optional alternative screening schedule based on mike Cordoba., [facility] October 22, 2011 for patients with osteopenia (based on hip BMD T-score) is as follows: * advanced osteopenia (T scores -2.00 to -2.49), BMD testing every year * moderate osteopenia (T scores -1.50 to -1.99), BMD testing every 5 years mild osteopenia or normal BMD (T scores -1.50 and higher), BMD testing every 15 years -------- FINAL REPORT -------- Dictated By: Faby Bain Dictated Date: 12/12/2024 09:29 ET Assigned Physician: Faby Bain Reviewed and Electronically Signed By: Faby Bain Signed Date: 12/12/2024 09:30 ET Workstation ID: [id number] Transcribed By: Self Edit Transcribed Date: 12/12/2024 09:29 ET Procedure Note Faby Bain MD - 12/12/2024 BONE DENSITY (DEXA) Lumbar Spine T-score is -0.9. (SD relative to 20-29 y/o adult) Z-score is 0.6. (SD relative to age matched peers) This is considered normal by WHO criteria. Left Hip T-score is -1.3. Z-score is 0.1. This is considered osteopenia by WHO criteria. Comparison exam(s): Not available. Impressions: Osteopenia by WHO criteria. This patient has a 11% risk of majorosteoporotic fracture and a 0.8% risk of hip fracture over the next 10years. (World Health Organization Fracture Risk Assessment) [facility] Department of Internal Medicine recommendsusing National Osteoporosis Foundation (NOF) guidelines in treatmentdecisions related to osteoporosis. NOF guidelines suggest consideringtreatment for postmenopausal women and men aged 50 or older presentingwith the following: History of hip or vertebral fracture. T-score = -2.5 (DXA) at the femoral neck, total hip, or spine, afterappropriate evaluation to exclude secondary causes. Low bone mass (T-score between -1.0 and -2.5 at the femoral neck or spine)AND a 10-year probability of a hip fracture = 3% OR a 10-year probabilityof a major osteoporosis-related fracture = 20% based on the [place]-adapted WHOalgorithm Please note that all treatment decisions require clinical judgment andconsideration of individual patient factors, including patientpreferences, co-morbidities, previous drug use, risk factors not capturedin the FRAX model (e.g., frailty, falls, vitamin D deficiency, increasedbone turnover, interval significant decline in bone density) and possibleunder- or over-estimation of fracture risk by FRAX. Optional alternative screening schedule based on mike Cordoba., [facility]January 2011 for patients with osteopenia (based on hip BMD T-score)is as follows: * advanced osteopenia (T scores -2.00 to -2.49), BMD testing every year * moderate osteopenia (T scores -1.50 to -1.99), BMD testing every 5years mild osteopenia or normal BMD (T scores -1.50 and higher), BMD testingevery 15 years -------- FINAL REPORT -------- Dictated By: Rokhlenko, Faby Dictated Date: 12/12/2024 09:29 ET Assigned Physician: Faby Bain Reviewed and Electronically Signed By: Faby Bain Signed Date: 12/12/2024 09:30 ET Workstation ID: [id number] Transcribed By: Self Edit Transcribed Date: 12/12/2024 09:29 ET Result [facility] CNRyan IMG DXA PROCEDURES Final Result * Lipid panel (05/24/2024) [facility] LDL/HDL Ratio 2 0 - 4 Triglycerides 102 0 - 150 mg/dL Cholesterol 116 0 - 200 mg/dL HDL 51 >=40 mg/dL LDL Cholesterol 45 0 - 100 mg/dL Blood Venous blood specimen / Unknown Result [facility] Historical Provider LAB BLOOD ORDERABLES Kari l Result * Colonoscopy (03/08/2024) [facility] Colonoscopy no interpretation , abstracted Anatomical Region Laterality Modality Other [facility] Provider HEALTH MAINTENANCE Final Result * Cervical Cancer Screening: HPV (10/16/2021) [facility] Cervical Cancer Screening: HPV negative, abstracted Result 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
[2025-04-20 12:55] LABS: MANUAL DIFF FLAG NO
[2025-04-20 13:04] LABS: Hematocrit 37.2 % (37.0-47.0); Hemoglobin 11.6 g/dl (12.0-16.0); Imm Gran Abs Auto 0.10 X10*3/uL (0.00-0.03); Imm Gran Pct Auto 1.2 % (0.0-0.4); Lymphocytes Absolute Auto 2.1 X10*3/uL (1.2-4.9); Mean Corpuscular HGB Conc 31.2 g/dl (31.0-35.0); Mean Corpuscular Hemoglobin 26.2 pg (27.0-33.0); Mean Corpuscular Volume 84.2 fL (80.0-98.0); NRBC Abs Auto 0.000 X10*3/uL (0.0-0.012); NRBC Pct Auto 0.0 /100WBC (0.0-0.2); Platelet Count 290 X10*3/uL (160-400); Red Blood Count 4.42 X10*6/uL (4.20-5.50); White Blood Count 8.6 X10*3/uL (4.8-10.8)
[2025-04-20 13:31] LABS: Alanine Aminotransferase 18 U/L (0-31); Albumin Level 3.9 g/dL (3.5-5.0); Alkaline Phosphatase 103 U/L (39-117); Anion Gap 11 (12-20); Aspartate Amino Transferase 21 U/L (5-31); Blood Urea Nitrogen 20 mg/dL (9-16); Calcium 9.5 mg/dL (8.4-10.2); Carbon Dioxide 25 mmol/L (22-29); Chloride 106 mmol/L (96-108); Estimated Glomerular Filt Rate > 60; Potassium 4.1 mmol/L (3.3-5.1); Sodium 138 mmol/L (135-145); Total Protein 7.5 g/dL (6.5-8.0)
== END 2025-04-20 09:47 | disposition home or self-care (01) ==
LOC: HO.HMGCLDS 09:46
PROVIDERS: PCP Internal Medicine; Visit Provider Student in an Organized Health Care Education/Training Program
DX: M05.9 Rheumatoid arthritis with rheumatoid factor, unspecified (principal)
CPT/HCPCS: 36415; 80053; 85025; 85652; 86140

== ENCOUNTER 2025-06-05 13:25 | Outpatient (AMB) | payer OTHER, SELFPAY ==
--- NOTE | 2025-06-05 13:27 | A.OFFVIS_ITS ---
Vital Signs 06/05/25 13:28 Height 5 ft 2 in Weight 192 lb 3.889 oz BMI 35.2 BP 140/90 H Blood Pressure Location Lt brachial Position Sitting Pulse 73 Pulse Source Pulse Oximeter Pulse Oximetry (%) 98 Oxygen Delivery Method Room Air Intake Visit Reasons: RA Intake Note: Patient presents for RA. Accompanied by: Self / Same As Patient Allergies mold Adverse Reaction (Unknown, Verified 07/05/24 13:52) Unknown Sulfa (Sulfonamide Antibiotics) Adverse Reaction (Unknown, Verified 07/05/24 13:52) Unknown dust Adverse Reaction (Unknown, Uncoded 01/04/24 14:33) Watery Eye HPI HPI RA: Details: She had pain in left elbow in the last few days, improving. No joint stiffness. No recent illness. PFSH Medical History Seborrheic dermatitis Ventricular septal defect Hypothyroid Overactive bladder Rheumatoid arthritis, seropositive, multiple sites Obstructive sleep apnea Severe obesity (BMI 35.0-35.9 with comorbidity) Hyperlipidemia Asthma Nonrheumatic pulmonary valve stenosis Coronary artery disease Staghorn calculus Surgical History H/O valvuloplasty H/O mammogram Hx of colonoscopy Family History Mother Hypertension Arthritis Breast cancer, Onset Age: 80 Sister Arthritis Father Diabetes Arthritis Social History Household Members Other:: [facility] alone [facility] Are you a primary senior care manager to a significant other at home: No Do you presently have visiting nurse or other home services: No 75 years or older and lives alone: No Alcohol intake: never Patient Tobacco Use Status: Never used Tobacco e-Cigarette/Vaping Use: Never Used service: No Current occupational status: employed 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 Good respiratory effort Skin: No lesions seen MSK: Tender to palpate left 2nd MCP and right 3rd MCP with synovitis present. Left shoulder limited full abduction, internal rotation and external rotation. She has left elbow flexor contracture. No MTP tenderness. Bilateral knee flexion 90 degrees. Assessment & Plan Assessment & Plan (1) Seropositive rheumatoid arthritis: Comment: Inflammatory arthritis is not controlled on monotherapy with hydroxychloroquine. She has synovitis of MCPs. She also has flexure contracture of left elbow with limited range of motion of left shoulder. Inflammatory markers from April 2025 are up trending corresponding with uncontrolled inflammatory arthritis. Rheumatology history: Onset ~ 2008. +CIERA, RF and CCP Ab, neg anti-SAMIRA. She has been on hydroxychloroquine since February 2025. Code(s): M05.9 - Rheumatoid arthritis with rheumatoid factor, unspecified Category: Medical Plan: Continue hydroxychloroquine 400 mg daily. Eye exam up-to-date from February 2025 OCT and threshold visual field Labs for disease monitoring is up-to-date from April 2025 X-rays of bilateral hands, feet, left elbow and left shoulder ordered to evaluate for erosive inflammatory arthritis Prednisone course prescribed Return to clinic in 3 months. If she continues to have synovitis, I will need to step up DMARD therapy with the addition of methotrexate. (2) Long-term use of hydroxychloroquine: Code(s): Z79.899 - Other manager long term care (current) drug therapy Category: Medical Plan: Continue to follow-up regularly with Ophthalmology (3) MGUS (monoclonal gammopathy of unknown significance): Code(s): D47.2 - Monoclonal gammopathy Category: Medical Plan: Follows with hem/ oncology Orders: Orders Erythrocyte Sedimentation Rate Today M05.9 - Rheumatoid arthritis with rheumatoid factor, unspecified, Z79.60 - penitentiary (current) use of unspecified immunomodulators and immunosuppressants Alanine Aminotransferase Today M05.9 - Rheumatoid arthritis with rheumatoid factor, unspecified, Z79.60 - penitentiary (current) use of unspecified immunomodulators and immunosuppressants Rheumatoid Factor Today M05.9 - Rheumatoid arthritis with rheumatoid factor, unspecified XR Foot Augustine 3V Today M05.9 - Rheumatoid arthritis with rheumatoid factor, unspecified, Z79.899 - Other care home (current) drug therapy XR Hand Bilat min 3v Today M05.9 - Rheumatoid arthritis with rheumatoid factor, unspecified, Z79.899 - Other manager long term care (current) drug therapy Aspartate Amino Transferase Today M05.9 - Rheumatoid arthritis with rheumatoid factor, unspecified, Z79.60 - manager long term care (current) use of unspecified immunomodulators and immunosuppressants C Reactive Protein Today M05.9 - Rheumatoid arthritis with rheumatoid factor, unspecified, Z79.60 - manager long term care (current) use of unspecified immunomodulators and immunosuppressants Complete Blood Count Auto Diff Today M05.9 - Rheumatoid arthritis with rheumatoid factor, unspecified, Z79.60 - manager long term care (current) use of unspecified immunomodulators and immunosuppressants Creatinine Today M05.9 - Rheumatoid arthritis with rheumatoid factor, unspecified, Z79.60 - penitentiary (current) use of unspecified immunomodulators and immunosuppressants Cyclic Citrullinated Peptide Today M05.9 - Rheumatoid arthritis with rheumatoid factor, unspecified XR shoulder LT min 2V Today M05.9 - Rheumatoid arthritis with rheumatoid factor, unspecified, Z79.899 - Other care home (current) drug therapy XR elbow LT min 3V Today M05.9 - Rheumatoid arthritis with rheumatoid factor, unspecified, Z79.899 - Other care home (current) drug therapy Medications: New prednisone Take 4 tablets daily 3 days, 3 tablet daily 3 days, 2 tablets daily 3 days, 1 tablet daily 3 days then stop. Take prednisone with food. Avoid oral NSAIDs while on prednisone. 5 mg PO DIRECTED 30 tabs 0RF Changed From hydroxychloroquine 200 mg PO BID 90 days 180 tabs 1RF M05.9 - Rheumatoid arthritis with rheumatoid factor, unspecified To hydroxychloroquine 400 mg (2 x 200 mg) PO BID 360 tabs 1RF 90 days M05.9 - Rheumatoid arthritis with rheumatoid factor, unspecified Coding Level of Care Code Est Pt Level 4 (13240) Complex EM visit Add On G2211 Diagnoses Seropositive rheumatoid arthritis M05.9 Long-term use of hydroxychloroquine Z79.899 MGUS (monoclonal gammopathy of unknown significance) D47.2
[2025-06-05 13:28] VITALS: BP 140/90; PULSE 73; O2SAT 98; BMI 35.2
--- OUTSIDE RECORDS SUMMARY | 2025-06-05 14:42 | XMS_ITS | Clinical Summary ---
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 Name Role Phone Unavailable Primary Care Provider [...] 2013 Imm-Zoster, Recombinant (1 of 2) 2013 Cyy-RLGDS-20 ( season) 2024 021, 01/30/2021 Alcohol and Drug Screen 10/04/2024 Depression Annual Screen 10/04/2024 Imm-Influenza (#1) 2025 Cervical Ablation/Cold-Knife Conization Discontinued Cervical Cryotherapy Discontinued Colposcopy Discontinued Endometrial Biopsy Discontinued Excision/Leep Discontinued HPV Genotyping Discontinued Vaginal Pap Discontinued Vulvoscopy Discontinued Insurance [facility] Member Subscriber Plan / Payer (Ef fective 2011-Present) Name:Yareli Green Relation to Subscriber:Self Name:Yareli Green Payer ID:[id number] Type:Indemnity Address: [address] [address]
--- OUTSIDE RECORDS SUMMARY | 2025-06-05 14:42 | XMS_ITS | Clinical Summary ---
Author Organization [facility] Address [address] [place] [address] Phone Care Team Providers Care Recovery Collector Name Role Phone Kelsy Calle MD Primary Care Provider [phone] Allergies Active Allergy Reactions Criticality Noted Date Comments House Dust 07/18/2015 Watery eyes Mold 07/18/2015 Sulfa (Sulfonamide Antibiotics) 09/05 Medications hydroxychloroqu ine (PLAQUENIL) 200 mg tablet Take 1 tablet [...] SEE ATTACHED FOR DETAILED DIRECTIONS 4 Active cholecalciferol (VITAMIN D-3) 50 mcg (2,000 unit) capsule TAKE 1 CAPSULE BY MOUTH EVERY DAY 90 capsule 3 5 Active atorvastatin (LIPITOR) 20 mg tablet TAKE 1 TABLET BY MOUTH EVERY DAY 90 tablet 1 5 Active fluticasone furoate-vilante roL (Breo Ellipta) 200-25 mcg/dose inhaler Inhale 1 puff by mouth 1 (one) time each day. 3 each 3 5 04/03/20 26 Active levothyroxine (SYNTHROID, LEVOTHROID) 112 mcg tablet Take 1 tablet (112 mcg total) by mouth 1 (one) time each day before breakfast. 90 tablet 5 Active amoxicillin-cla vulanate (AUGMENTIN) 875-125 mg per tablet Take 1 tablet by mouth 2 (two) times a day for 10 days. 20 each 5 05/07/20 25 Active Problems Problem Noted Date Diagnosed Date Prediabetes 05/01/2025 IgG lambda monoclonal gammopathy 07/12/2024 Lazy eye, left 07/12/2024 Eczema 02/04/2024 At high risk for breast cancer 12/06/2023 Staghorn calculus 05/01/2021 Overview (11/19/2024): 6 large, stent placed CAD (coronary artery disease) 04/30/2021 Overview (11/19/2024): Mild luminal irregularities Assessment & Plan (10/12/2024 4:13 PM EST): Orders: ECG 12 lead Asthma 04/27/2020 Hyperlipidemia LDL goal <55 04/07/2019 Severe obesity (BMI 35.0-39. 9) with comorbidity (CMS/[facility] V24, CMS/[facility] V28) 08/19/2018 Microalbuminuria 02/02/2018 Obstructive sleep apnea 01/24/2018 Overview (11/19/2024): [facility] Home Polysomnogram: Date 01/18/2018; AHI 12, Unclassified apneas 1; Obstructive apneas 5; Central apneas 0; Mixed apneas 0; hypopneas 65; average oxygen saturation 88% (lowest 74% with saturations <88% for 5% or more of study) - Obstructive Sleep Apnea - mild; mostly hyopneas; with sleep related hypoventilation by 2018 home polysomnogram. Bicornuate uterus 08/10/2016 Rheumatoid arthritis, seropo sitive, multiple sites ([facility] V24, [facility] V28) 01/30/2015 Overview (11/19/2024): Onset ~ 2008. Pos CIERA, pos RF, pos CCP Ab, neg anti-SAMIRA. Hydroxychloroquine started 02/15; eye exam OK 10/19, 10/20, 10/21, 10/22, 11/23, 10/2020 Overactive bladder 01/24/2015 Seborrheic dermatitis 06/08/2014 Overview (11/19/2024): Allergic rhinitis 08/19/2011 Hypothyroid 04/10/2010 Congenital stenosis of pulmonary valve 6 Overview (11/19/2024): Successful balloon valvuloplasty 1995 Ventricular septal defect 11/09/2005 Overview (11/19/2024): Spontaneous closure as of 2013. Assessment & Plan (10/12/2024 4:13 PM EST): She was reported to have a small VSD. Card exam does not suggest VSD murmur. Will reassess. Resolved Problems Problem Noted Date Diagnosed Date Resolved Date Nonrheumatic pulmonary valve stenosis 04/30/2021 05/01/2025 Overview (11/19/2024): Assessment & Plan (10/12/2024 4:13 PM EST): She had a congenital pulmonic stenosis and had a percutaneous intervention more than 30 years ago. The most recent echocardiogram was 4 years ago and currently, her cardiac exam does not suggest pulmonic stenosis is severe. Will repeat echo to reassess pulmonic valve gradient and artery pressure. Encounters Date Type Department Care Team Description 04/27/2025 11:30 AM EDT Office Visit [address] [phone] Kelsy Calle MD Upper respiratory tract infection, unspecified type (Primary Dx); Coronary artery disease involving [place] coronary artery of [place] heart without angina pectoris; Hypothyroidism due to acquired atrophy of thyroid; Moderate persistent asthma without complication 03/26/2025 3:45 PM EDT Office Visit [address] [phone] Anuj Benton PA Hypothyroidism due to acquired atrophy of thyroid (Primary Dx); Coronary artery disease involving [place] coronary artery of [place] heart without angina pectoris; Microalbuminuria; Rheumatoid arthritis, seropositive, multiple sites (CMS/[facility] V24, [facility] V28); Obesity (BMI 30.0-34.9); Elevated random blood glucose level; Moderate persistent asthma without complication; Hyperlipidemia LDL goal <55 03/23/2025 1:14 PM EDT - 03/23/2025 11:59 PM EDT Hospital Encounter [facility] Ultrasound [address] [place] [phone] Axillary mass, left Discharge Disposition: Home or Self Care 03/23/2025 8:30 AM EDT Office Visit Pulmonolgy - [place] [address] [facility] [address] [facility] [address] [place] [phone] Anel Murphy MD Moderate persistent asthma without complication (Primary Dx); CONCEPCION on CPAP; Abnormal chest CT; Adenopathy; ILD (interstitial lung disease) (CMS/[facility] V24, CMS/[facility] V28) 03/14/2025 1:30 PM EDT - 03/14/2025 11:59 PM EDT Hospital Encounter [facility] Ultrasound [address] [place] [phone] At high risk for breast cancer Discharge Disposition: Home or Self Care 03/14/2025 12:44 PM EDT - 03/14/2025 11:59 PM EDT [facility] [address] [phone] At high risk for breast cancer Discharge Disposition: Home or Self Care from Last 3 Months Immunizations Name Administration [...] Severe obesity (BMI 35.0-39. 9) with comorbidity ([facility] V24, [facility] V28) 08/19/2018 Staghorn calculus 05/01/2021 : 03/24 large, stent placed Calculus of kidney left removal at [facility] 05/2021 Family History Medical History Relation Name [...] Sign Reading Time Taken Comments Blood Pressure 120/66 04/27/2025 11:19 AM EDT Pulse 78 04/27/2025 11:19 AM EDT Temperature 36 C (96.8 F) 04/27/2025 11:19 AM EDT Respiratory Rate 18 04/27/2025 11:19 AM EDT Oxygen Saturation 99% 04/27/2025 11:19 AM EDT Inhaled Oxygen Concentration - - Weight 88 kg (193 lb 14.4 oz) 04/27/2025 11:19 A M EDT Height 157.5 cm (5' 2 ) 04/27/2025 11:19 AM EDT Body Mass Index 35.46 04/27/2025 11:19 AM EDT Plan of Treatment Upcoming Encounters Date Type Department Care Team (Late st Contact Info) Description 06/14/2025 2:40 PM EDT Office Visit [facility] - [facility] [address] [facility] [address] [place] [phone] Kary Guerra NP [facility] [address] [facility] [address] [place] [phone] 08/23/2025 2:20 PM EST Office Visit [facility] [place] [address] [place] [phone] Landon Akhtar MD [address] [place] [address] 08/23/2025 3:15 PM EST Office Visit [facility] Hematology Oncology [address] [place] [phone] Neil Castaneda MD [address] [place] [phone] 10/01/2025 2:00 PM EST Ancillary Procedure Pulmonolgy - [place] 175 [facility] [address] [place] [phone] 10/01/2025 2:45 PM EST [facility] [address] [place] [phone] Anel Murphy MD [address] [place] [phone] 10/08/2025 3:30 PM EST Office Visit Adult Medicine [address] [phone] Kelsy Calle MD [address] [place] [phone] Health Maintenance Due Date Last Done Comments HIV Screening 09/12/2022 Social Influencers of Health Screening 09/12/2022 COVID-19 Vaccine ( season) 2024 10/07/2022, 10/19/2021, 02/27/2021, Additional history exists Depression Screening 10/04/2024 Hypertension/CHF/CAD Annual BMP Blood Test 01/29/2026 01/29/2025, 05/24/2024, 05/24/2024 Breast Cancer Screening 03/14/2026 03/14/20, 08/19/2024, 02/09/2024, Additional history exists Cervical Cancer Screening: HPV 10/16/2026 10/16/2021 DTaP,Tdap,and Td Vaccines (3 - Td or Tdap) 08/04/2027 08/04/2017, 08/09/2007 Cholesterol Screening (Lipid Panel) 05/01/2030 05/01/2025, 05/24/2024, 05/24/2024, Additional history exists Colorectal Cancer Screening: Colonoscopy 03/08/2034 03/08/2024, 03/08/2014 Osteoporosis Screening (Bone Density Screening) 12/11/2034 12/11/2024 Hepatitis C Screening Completed 08/20/2011 Zoster Vaccines Completed 05/31/2022, 02/07/2022 RSV Immunization Adult Patients Completed 02/27/2025 Influenza Vaccine Completed 05/25/2025, , 07/21/2022, Additional history exists Pneumococcal Vaccine: 50+ Years Completed 05/25/2025, 08/04/2017 HIB Vaccines Aged Out No longer eligi [...] this topic Medical Devices Implanted Type Area Motor Expert Device Identifier Shelf Expiration Date Model / Serial / Lot Marker Breast Biopsy 15g Rigid Ti Barrel Hydromark - [id number] - [id number] Implanted:Qty: 1 on 03/23/2025 by Babak Rice MD at [facility] Implants Left: Axilla Synthelis [id number] 07/13/2027 4010-02- 15-T1 / [id number] / [id number] Procedures Procedure Name Priority Date/Time Associated Diagnosis Comments HEMOGLOBIN A1C Routine 05/01/2025 8:37 AM EDT Coronary artery disease involving [place] coronary artery of [place] heart without angina pectoris Microalbuminuria Hypothyroidism due to acquired atrophy of thyroid Rheumatoid arthritis, seropositive, multiple sites ([facility] V24, [facility] V28) Obesity (BMI 30.0-34.9) Elevated random blood glucose level Hyperlipidemia LDL goal <55 VITAMIN D 25 HYDROXY Routine 05/01/2025 8:37 AM EDT Coronary artery disease involving [place] coronary artery of [place] heart without angina pectoris Microalbuminuria Hypothyroidism due to acquired atrophy of thyroid Rheumatoid arthritis, seropositive, multiple sites ([facility] V24, [facility] V28) Obesity (BMI 30.0-34.9) Elevated random blood glucose level LIPID PANEL WITH REFLEX TO DIRECT LDL Routine 05/01/2025 8:37 AM EDT Coronary artery disease involving [place] coronary artery of [place] heart without angina pectoris Microalbuminuria Hypothyroidism due to acquired atrophy of thyroid Rheumatoid arthritis, seropositive, multiple sites (CMS/HCC V24, CMS/[facility] V28) Obesity (BMI 30.0-34.9) Elevated random blood glucose level Hyperlipidemia LDL goal <55 THYROID STIMULATING HORMONE Routine 05/01/2025 8:37 AM EDT Coronary artery disease involving [place] coronary artery of [place] heart without angina pectoris Microalbuminuria Hypothyroidism due to acquired atrophy of thyroid Rheumatoid arthritis, seropositive, multiple sites (CMS/[facility] V24, CMS/[facility] V28) Obesity (BMI 30.0-34.9) Elevated random blood glucose level US BX NDL LYMPH NODE BREAST SUPERFICIAL [...] EDT At high risk for breast cancer COMPREHENSIVE METABOLIC PANEL Routine 01/29/2025 7:57 AM EDT MGUS (monoclonal gammopathy of unknown significance) BD BONE DENSITY DXA AXIAL SKELETON Routine 12/11/2024 2:05 PM EDT Menopausal and postmenopausal disorder HM COLONOSCOPY Routine 03/08/2024 HM HPV Routine 10/16/2021 HEPATITIS C SCREENING Routine 08/20/2011 from Last 3 Months or Most Recently Relevant to Health Maintenance Results * Lipid panel with reflex to direct LDL (05/01/2025 8:37 AM EDT) Cholesterol 134 0 - 200 mg/dL LAB CHEMISTRY METHOD 05/01/2025 2:11 PM EDT [facility] Triglycerides 115 0 - 150 mg/dL LAB CHEMISTRY METHOD 05/01/2025 2:11 PM EDT [facility] HDL 53 >=40 mg/dL LAB CHEMISTRY METHOD 05/01/2025 2:11 PM EDT [facility] LDL Calculated 58 0 - 100 mg/dL LAB CHEMISTRY METHOD 05/01/2025 2:11 PM EDT [facility] VLDL Cholesterol Alexis 23 mg/dL LAB CHEMISTRY METHOD 05/01/2025 2:11 PM EDT [facility] Non HDL Chol. (LDL+VLDL) 81 <145 mg/dL LAB CHEMISTRY METHOD 05/01/2025 2:11 PM EDT [facility] Chol/HDL Ratio 2.5 0.0 - 4.4 LAB CHEMISTRY METHOD 05/01/2025 2:11 PM EDT [facility] Blood Venous blood specimen / Unknown Venipuncture / Unknown 05/01/2025 8:37 AM EDT 05/01/2025 8:37 AM EDT us Anju VASQUEZ LAB BLOOD ORDERABLES Final Re sult Performing Organization Address City/[facility]/ZIP Co de Phone Number [facility] [address] [place] [address], [place] [phone] * Vitamin D 25 hydroxy (05/01/2025 8:37 AM EDT) [facility] Vit D, 25-Hydroxy 63.5 30.0 - 80.0 ng/mL LAB CHEMISTRY METHOD 05/01/2025 3:30 PM EDT [facility] Blood Venous blood specimen / Unknown Venipuncture / Unknown 05/01/2025 8:37 AM EDT 05/01/2025 8:37 AM EDT us Anju VASQUEZ LAB BLOOD ORDERABLES Final Re sult [facility] [address] [place] [address], [place] [phone] * Thyroid stimulating hormone (05/01/2025 8:37 AM EDT) [facility] TSH 2.55 0.40 - 4.00 mcIU/mL LAB CHEMISTRY METHOD 05/01/2025 3:30 PM EDT [facility] Blood Venous blood specimen / Unknown Venipuncture / Unknown 05/01/2025 8:37 AM EDT 05/01/2025 8:37 AM EDT us Anju VASQUEZ LAB BLOOD ORDERABLES Final Re sult Performing Organization Address [facility] Co de Phone Number [facility] [address] [place] [address], [place] [phone] * Hemoglobin A1c (05/01/2025 8:37 AM EDT) [facility] Hemoglobin A1C 6.2 <6.5 % LAB CHEMISTRY METHOD 05/01/2025 11:27 AM EDT [facility] Mean Bld Glu Estim. 131 mg/dL LAB CHEMISTRY METHOD 05/01/2025 11:27 AM EDT [facility] Blood Venous blood specimen / Unknown Venipuncture / Unknown 05/01/2025 8:37 AM EDT 05/01/2025 8:37 AM EDT us Anju VASUQEZ LAB BLOOD ORDERABLES Final Re sult Performing Organization Address [facility] de Phone Number [facility] [address] [place] [address], [place] [phone] * [place] Bx Ndl Lymph Node Breast [...] immunoreactive. BCL-2: Follicle center cells are negative. [place] light chain (ARNULFO): Subset of plasma cells are positive (greater than lambda). Lambda light chain (ARNULFO): Subset of plasma cells are positive. Interpretation: There is no epithelial cell population identified by Cytokeratin immunohistochemistry (No carcinoma is identified.) The lymphocytes show a generally winter intern distribution of CD3-positive T cells and [id number] B cells, and follicle center cells are [...] on a cytokeratin immunohistochemical study on a patient financial representative tissue block. ? The morphologic and [...] axilla, flow cytometry (technical component performed at [facility]): No monotypic B cell population identified. A [...] Signed Date: 04/02/2025 12:12 ET Workstation ID: [id number] Transcribed By: Self Edit Transcribed Date: 04/02/2025 [...] Pathology pending for the left breast. Location: [address], [address] -------- FINAL REPORT -------- Dictated By: Babak Rice Dictated Date: 03/23/2025 14:50 ET Assigned Physician: Babak Rice Reviewed and Electronically Signed By: Babak Rice Signed Date: 03/23/2025 14:54 ET Workstation ID: [id number] Transcribed By: Self Edit Transcribed Date: 03/23/2025 [...] The final specimen was submitted directly into RPMI for potential flow cytometry A radiopaque marker [...] be able to be included on mammography. us Landon Akhtar MD [facility] US PROCEDURES Edited Result - Final * .PATHOLOGIST REVIEW FLOW CYTOMETRY (03/23/2025 2:15 PM EDT) Pathologist Interpretation Flow Cytometry Lymph node, left axilla, flow cytometry (technical component performed at [facility]): Diagnosis: No monotypic B cell population identified. [...] the accompanying core biopsy specimen (see separate [facility] Pathology Report, [id number]) is recommended. The flow cytometry results do [...] CD19, CD20, CD23, CD34, CD38, CD45, CD56, [place], Lambda (17 Markers) 5 9:[address] [facility] ([facility]) [facility] Lymph Node Structure of left axillary region / Unknown 03/23/2025 2:15 PM EDT 03/26/2025 9:10 AM EDT N[facility]ative [facility] ([facility]) [facility] - 03/26/2025 9:12 AM EDT The Accessioning Component and Technical Component Processing of this test was completed at [facility] , [address] [place], [place] / [address] / [phone] / CLIA # [id number] / Full Time(s): Ameena Interiano MD. The Technical Component Analysis of this test was completed at [facility] [place], [address] [place] [address] / [address] / [phone] / CLIA # [id number] / Full Time(s): Andrew Garcia M.D. The Professional Component of this test was completed by Khari Taylor M.D. at [facility], [facility] Department of Pathology, [place] [address] / / . This test was developed [...] qualified to perform high complexity clinical testing. Babak Rice MD LAB BLOOD ORDERABLES Final Re sult [facility]) [facility] [address] [place] [address], * Leukemia, lymphoma evaluation by flow cytometry (03/23/2025 2:15 PM EDT) Scan Result See Scanned Result 03/26/2025 9:12 AM EDT EXTERNAL LAB (NON-INTERFAC ED) Lymph Node Structure of left axillary region / Unknown 03/23/2025 2:15 PM EDT 03/23/2025 4:08 PM EDT Narrative EXTERNAL LAB (NON-INTERFACED) - 03/26/2025 9:12 AM EDT Babak Rice MD LAB MOLECULAR DIAGNOSTICS ORD ERABLES Final Result EXTERNAL LAB (NON-INTERFACED) * Tissue exam (03/23/2025 [...] immunoreactive. BCL-2: Follicle center cells are negative. [place] light chain (ARNULFO): Subset of plasma cells are positive (greater than lambda). Lambda light chain (ARNULFO): Subset of plasma cells are positive. Interpretation: There is no epithelial cell population identified by Cytokeratin immunohistochemistry (No carcinoma is identified.) The lymphocytes show a generally winter intern distribution of CD3-positive T cells and [id number] B cells, and follicle center cells are [...] on a cytokeratin immunohistochemical study on a patient financial representative tissue block. The morphologic and immunophenotypic [...] axilla, flow cytometry (technical component performed at [facility]): No monotypic B cell population identified. A [...] CD19, CD20, CD23, CD34, CD38, CD45, CD56, [place], Lambda (17 Markers) 5 1:01 PM EDT [facility] Gross Description A. Axilla, Left, lymph [...] soft tissue core which is submitted to [facility] in [facility] for flow cytometry. One air dried touch prep is made for internal triage purposes. JERARDO 1:01 PM EDT [facility] Disclaimer NOTE: The immunohistochemical tests and in situ hybridization tests were developed and their performance characteristics were determined by [facility]. They have not been cleared [...] fixed and paraffin embedded. 1:01 PM EDT [facility] Lymph Node Structure of left axillary region / Unknown 03/23/2025 2:15 PM EDT 03/23/2025 3:01 PM EDT us Babak Rice MD LAB PATHOLOGY ORDERABLES Kari schaefer Result [facility] [address] [place] [address], * (ABNORMAL) MG Mammo Digital Diagnostic w [...] histology. [facility]amm[facility] location: [facility] [address], [address] -------- FINAL REPORT -------- Dictated By: Babak Rice Dictated Date: 03/14/2025 15:34 ET Assigned Physician: Babak Rice Reviewed and Electronically Signed By: Babak Rice Signed Date: 03/14/2025 15:57 ET Workstation ID: [id number] Transcribed By: Self Edit Transcribed Date: 03/14/2025 [...] concern. Computer-aided detection was employed with the [employer] 3-D. TISSUE DENSITY: The breasts are heterogeneously [...] concern. Computer-aided detection was employed with the [employer] 3-D. TISSUE DENSITY: The breasts are heterogeneously [...] ashistology. Mammography location: [facility] at [address], [address] -------- FINAL REPORT -------- Dictated By: Babak Rice Dictated Date: 03/14/2025 15:34 ET Assigned Physician: Babak Rice Reviewed and Electronically Signed By: Babak Rice Signed Date: 03/14/2025 15:57 ET Workstation ID: [id number] Transcribed By: Self Edit Transcribed Date: 03/14/2025 15:44 ET us Landon Akhtar MD IMG BI PROCEDURES Final Result * [...] histology. Mammography location: [facility] [address], [address] -------- FINAL REPORT -------- Dictated By: Babak Rice Dictated Date: 03/14/2025 15:34 ET Assigned Physician: Babak Rice Reviewed and Electronically Signed By: Babak Rice Signed Date: 03/14/2025 15:57 ET Workstation ID: [id number] Transcribed By: Self Edit Transcribed Date: 03/14/2025 [...] concern. Computer-aided detection was employed with the [employer] 3-D. TISSUE DENSITY: The breasts are heterogeneously [...] concern. Computer-aided detection was employed with the [employer] 3-D. TISSUE DENSITY: The breasts are [...] ashistology. Mammography location: [facility] [address], [address] -------- FINAL REPORT -------- Dictated By: Babak Rice Dictated Date: 03/14/2025 15:34 ET Assigned Physician: Babak Rice Reviewed and Electronically Signed By: Babak Rice Signed Date: 03/14/2025 15:57 ET Workstation ID: [id number] Transcribed By: Self Edit Transcribed Date: 03/14/2025 15:44 ET us Landon Akhtar MD IMG US PROCEDURES Final Result * (ABNORMAL) Comprehensive metabolic panel (01/29/2025 7:57 AM EDT) Sodium 140 133 - 145 mmol/L LAB CHEMISTRY METHOD 01/29/2025 11:15 AM [facility] Potassium 4.2 3.5 - 5.5 mmol/L LAB CHEMISTRY METHOD 01/29/2025 11:15 AM [facility] Chloride 107 96 - 110 mmol/L LAB CHEMISTRY METHOD 01/29/2025 11:15 AM [facility] CO2 24 21 - 32 mmol/L LAB CHEMISTRY METHOD 01/29/2025 11:15 AM [facility] Anion Gap 9 3 - 11 LAB CHEMISTRY METHOD 01/29/2025 11:15 AM [facility] Glucose 109(H) 70 - 100 mg/dL LAB CHEMISTRY METHOD 01/29/2025 11:15 AM [facility] BUN 22 5 - 25 mg/dL LAB CHEMISTRY METHOD 01/29/2025 11:15 AM [facility] Creatinine 0.68 0.50 - 1.10 mg/dL LAB CHEMISTRY METHOD 01/29/2025 11:15 AM [facility] eGFR 99 >=60 mL/min/1. 73m2 LAB CHEMISTRY METHOD 01/29/2025 11:15 AM [facility] Comment:Calculation based on the Chronic Kidney Disease Epidemiology Collaboration (CKD-EPI) equation refit without adjustment for race. BUN/Creatinine Ratio 32.4 LAB CHEMISTRY METHOD 01/29/2025 11:15 AM [facility] Calcium 9.7 8.5 - 10.5 mg/dL LAB CHEMISTRY METHOD 01/29/2025 11:15 AM [facility] AST (SGOT) 17 10 - 42 unit/L LAB CHEMISTRY METHOD 01/29/2025 11:15 AM [facility] ALT (SGPT) 29 10 - 60 unit/L LAB CHEMISTRY METHOD 01/29/2025 11:15 AM EDT [facility] Alkaline Phosphatase 138(H) 42 - 121 unit/L LAB CHEMISTRY METHOD 01/29/2025 11:15 AM EDT [facility] Total Protein 8.2(H) 6.0 - 8.0 g/dL LAB CHEMISTRY METHOD 01/29/2025 11:15 AM EDT [facility] Albumin 3.4 3.2 - 5.0 g/dL LAB CHEMISTRY METHOD 01/29/2025 11:15 AM EDT [facility] [facility] Total Bilirubin 0.5 0.0 - 1.4 mg/dL LAB CHEMISTRY METHOD 01/29/2025 11:15 AM EDT [facility] Blood Venous blood specimen / Unknown Venipuncture / Unknown 01/29/2025 7:57 AM EDT 01/29/2025 9:29 AM EDT us Neil Castaneda MD LAB BLOOD ORDERABLES Final Result [facility] [address] [place] [address], * BD Bone Density DXA Axial Skeleton [...] (World Health Organization Fracture Risk Assessment) [facility] Department of Internal Medicine recommends using National [...] alternative screening schedule based on mike Cordoba., [facility] October 22, 2011 for patients with osteopenia [...] Signed Date: 12/12/2024 09:30 ET Workstation ID: [id number] Transcribed By: Self Edit Transcribed Date: 12/12/2024 [...] (World Health Organization Fracture Risk Assessment) [facility] Department of Internal Medicine recommendsusing National Osteoporosis [...] alternative screening schedule based on mike Cordoba., NEJMJanuary 2011 for patients with osteopenia (based on [...] Signed Date: 12/12/2024 09:30 ET Workstation ID: [id number] Transcribed By: Self Edit Transcribed Date: 12/12/2024 09:29 ET Princess Loyola CNM IMG DXA PROCEDURES Final Result * Colonoscopy (03/08/2024) [facility] Colonoscopy no interpretation , abstracted Anatomical Region Laterality Modality Other Historical Provider HEALTH MAINTENANCE Final Result * Cervical Cancer Screening: HPV (10/16/2021) [facility] Cervical Cancer Screening: HPV negative, abstracted Historical Provider HEALTH MAINTENANCE Final Result * Hepatitis C Screening (08/20/2011) [facility] Hepatitis C Screening abstracted Historical Provider HEALTH MAINTENANCE Final Result from Last 3 Months or Most Recently Relevant to Health Maintenance Insurance * Guarantor: Shahriar Green Account Type Relation to Patient Date of Phone Billing Address Personal/Family Self 1965 [phone] (Work) [address] [place] [phone] [facility] Care Teams Recovery Collector Relationship Specialty Start Date End Date Kelsy Calle MD [address] [place] [phone] PCP - General 07/17/24
== END 2025-06-05 14:14 | disposition home or self-care (01) ==
LOC: HO.RHES 13:25
PROVIDERS: PCP Internal Medicine; Visit Provider Internal Medicine Rheumatology
DX: M05.9 Rheumatoid arthritis with rheumatoid factor, unspecified (principal); Z79.899 Other long term (current) drug therapy; D47.2 Monoclonal gammopathy
CPT/HCPCS: 99214

== ENCOUNTER 2025-06-09 10:54 | Outpatient (REF) | payer OTHER, SELFPAY ==
--- NOTE | ~2025-06-09 | XR_ITS ---
CLINICAL HISTORY: M05.9 - Rheumatoid arthritis with rheumatoid factor, unspecified 2 view left shoulder Comparison: None provided Findings: Bones intact. No dislocations. Periarticular osteophyte formation at the acromioclavicular and glenohumeral joints, indicating osteoarthritis. No erosions. No radiopaque foreign body. IMPRESSION: 1. No acute findings This document has been electronically signed by: Chris Jimenez MD on 06/11/2025 13:11:00
--- NOTE | ~2025-06-09 | XR_ITS ---
CLINICAL HISTORY: M05.9 - Rheumatoid arthritis with rheumatoid factor, unspecified Three views of each foot Comparison: None provided Findings: No acute fracture. There is possible subluxation at the left 3rd metatarsophalangeal joint seen on one view only. Joint space narrowing and periarticular osteophyte formation at the 1st metatarsophalangeal joint as well as the interphalangeal joints of the digits. No ankle effusion. No radiopaque foreign body. IMPRESSION: 1. Possible left 3rd metatarsophalangeal joint subluxation. This document has been electronically signed by: Chris Jimenez MD on 06/11/2025 13:39:29
--- NOTE | ~2025-06-09 | XR_ITS ---
CLINICAL HISTORY: M05.9 - Rheumatoid arthritis with rheumatoid factor, unspecified 3 view left elbow Comparison: None provided Findings: No acute fractures or dislocations. Periarticular osteophyte formation at the elbow joint. No joint effusion. No radiopaque foreign body. IMPRESSION: 1. No acute findings. This document has been electronically signed by: Chris Jimenez MD on 06/11/2025 13:39:19
--- NOTE | ~2025-06-09 | XR_ITS ---
CLINICAL HISTORY: M05.9 - Rheumatoid arthritis with rheumatoid factor, unspecified Three views of each hand Comparison: None provided Findings: Bones intact. No dislocations. No significant arthritic change. No erosions. No radiopaque foreign body. IMPRESSION: 1. No acute findings This document has been electronically signed by: Chris Jimenez MD on 06/11/2025 13:38:14
--- OUTSIDE RECORDS SUMMARY | 2025-06-09 10:58 | XMS_ITS | Clinical Summary ---
Author Organization [facility] Address [address] [place] [address] Care Team Providers Care Demonstrator [employer]ing [employer] Name Role Phone Unavailable Primary Care Provider [...] 2013 Imm-Zoster, Recombinant (1 of 2) 2013 Alcohol and Drug Screen 10/04/2024 Depression Annual Screen 10/04/2024 [id number] ( season) 2025 021, 01/30/2021 Imm-Influenza (#1) 2025 Cervical Ablation/Cold-Knife Conization Discontinued Cervical Cryotherapy Discontinued Colposcopy Discontinued Endometrial Biopsy Discontinued Excision/Leep Discontinued HPV Genotyping Discontinued Vaginal Pap Discontinued Vulvoscopy Discontinued Insurance [facility] Member Subscriber Plan / Payer (Ef fective 2011-Present) Name:Yareli Green Relation to Subscriber:Self Name:Yareli Green Payer ID:[id number] Type:Indemnity Address: [address] [address]
--- OUTSIDE RECORDS SUMMARY | 2025-06-09 10:58 | XMS_ITS | Clinical Summary ---
Author Organization 175 [facility] Address [address] [place] [address] Phone Care Team Providers Care Hall Cleaner Name Role Phone Kelsy Calle MD Primary Care Provider [phone] Allergies Active Allergy Reactions Criticality Noted Date [...] day before breakfast. 90 tablet 5 Active Active Problems Problem Noted Date Diagnosed Date Prediabetes 05/01/2025 IgG lambda monoclonal gammopathy 07/12/2024 Lazy eye, left 07/12/2024 Eczema 02/04/2024 At high risk for breast cancer 12/06/2023 Staghorn calculus 05/01/2021 Overview (11/19/2024): 03/24 large, stent placed CAD (coronary artery disease) 04/30/2021 Overview (11/19/2024): Mild luminal irregularities Assessment & Plan (10/12/2024 4:13 PM EST): Orders: ECG 12 lead Asthma 04/27/2020 Hyperlipidemia LDL goal <55 04/07/2019 Severe obesity (BMI 35.0-39. 9) with comorbidity (CMS/HCC V24, CMS/FORMERLY [facility] V28) 08/19/2018 Microalbuminuria 02/02/2018 Obstructive sleep apnea 01/24/2018 Overview (11/19/2024): [facility] Home Polysomnogram: Date 01/18/2018; AHI 12, Unclassified apneas 1; Obstructive apneas 5; Central apneas 0; Mixed apneas 0; hypopneas 65; average oxygen saturation 88% (lowest 74% with saturations <88% for 5% or more of study) - Obstructive Sleep Apnea - mild; mostly hyopneas; with sleep related hypoventilation by 2018 home polysomnogram. Bicornuate uterus 08/10/2016 Rheumatoid arthritis, seropo sitive, multiple sites ([facility] V24, [facility] V28) 01/30/2015 Overview (11/19/2024): Onset ~ 2008. [...] Description 04/27/2025 11:30 AM EDT Office Visit [address] [phone] Kelsy Calle MD Upper respiratory tract infection, unspecified type (Primary Dx); Coronary artery disease involving [place] coronary artery of [place] heart without angina pectoris; Hypothyroidism due to acquired atrophy of thyroid; Moderate persistent asthma without complication 03/26/2025 3:45 PM EDT Office Visit [address] [phone] Anju Benton PA Hypothyroidism due to acquired atrophy of thyroid (Primary Dx); Coronary artery disease involving [place] coronary artery of [place] heart without angina pectoris; Microalbuminuria; Rheumatoid arthritis, seropositive, multiple sites ([facility] V24, [facility] V28); Obesity (BMI 30.0-34.9); Elevated random blood glucose level; Moderate persistent asthma without complication; Hyperlipidemia LDL goal <55 03/23/2025 1:14 PM EDT - 03/23/2025 11:59 PM EDT Hospital Encounter [facility] Ultrasound [address] [place] [phone] Axillary mass, left Discharge Disposition: Home or Self Care 03/23/2025 8:30 AM EDT Office Visit Pulmonolgy - [place] [address] [facility] [address] [place] [phone] Anel Murphy MD Moderate persistent asthma without complication (Primary Dx); CONCEPCION on CPAP; Abnormal chest CT; Adenopathy; ILD (interstitial lung disease) ([facility] V24, [facility] V28) 03/14/2025 1:30 PM EDT - 03/14/2025 11:59 PM EDT Hospital Encounter [facility] Ultrasound [address] [place] [phone] At high risk for breast cancer Discharge Disposition: Home or Self Care 03/14/2025 12:44 PM EDT - 03/14/2025 11:59 PM EDT [facility] [address] [place] [phone] At high risk for breast cancer [...] 01/24/2015 Rheumatoid arthritis(714.0) 01/30/2015 Onse t - 2009. Pos CIERA, pos RF, pos CCP Ab, neg anti-SAMIRA Bicornuate uterus 05/2015 Microalbuminuria 02/02/2018 Severe obesity (BMI 35.0-39. 9) with comorbidity ([facility] V24, [facility] V28) 08/19/2018 Staghorn calculus 05/01/2021 : 03/24 large, stent placed Calculus of kidney left removal [place] [facility] 05/2021 Family History Medical History Relation Name [...] Description 06/14/2025 2:40 PM EDT Office Visit [facility] [address] [facility] [address] [place] [phone] Kary Guerra NP [address] [place] [address] Dr Zheng [address] [place] [phone] 08/23/2025 2:20 PM EST Office Visit [facility] [place] [address] [place] [phone] Landon Akhtar MD [address] [place], [place] [phone] 08/23/2025 3:15 PM EST Office Visit [facility] Hematology Oncology [address] [place] [phone] Neil Castaneda MD [address] [place] [phone] 10/01/2025 2:00 PM EST Ancillary Procedure Pulmonolgy - [address] [phone] 10/01/2025 2:45 PM EST Office Visit Pulmonolgy - [place] [address] [phone] Anel Murphy MD [address] [address] 10/08/2025 3:30 PM EST Office Visit Adult Medicine [facility] [address] [place] [phone] Kelsy Calle MD [address] [place] [phone] Health Maintenance Due Date Last Done Comments HIV Screening 09/12/2022 Social Influencers of Health Screening 09/12/2022 Depression Screening 10/04/2024 COVID-19 Vaccine ( season) 2025 10/07/2022, 10/19/2021, 02/27/2021, Additional history exists Hypertension/CHF/CAD Annual BMP Blood [...] this topic Medical Devices Implanted Type Area Drum Sander Setter Device Identifier Shelf Expiration Date Model / Serial / Lot Marker Breast Biopsy 15g Rigid Ti Barrel Hydromark - [id number] - [id number] Implanted:Qty: 1 on 03/23/2025 by Babak Rice MD at [facility] Implants Left: Axilla [employer] [id number] 07/13/2027 4010-02- 15-T1 / [id number] / [id number] Procedures Procedure Name Priority Date/Time Associated Diagnosis Comments HEMOGLOBIN A1C Routine 05/01/2025 8:37 AM EDT Coronary artery disease involving [place] coronary artery of [place] heart without angina pectoris Microalbuminuria Hypothyroidism due to acquired atrophy of thyroid Rheumatoid arthritis, seropositive, multiple sites (CMS/HCC V24, [facility] V28) Obesity (BMI 30.0-34.9) Elevated random blood glucose level Hyperlipidemia LDL goal <55 VITAMIN D 25 HYDROXY Routine 05/01/2025 8:37 AM EDT Coronary artery disease involving [place] coronary artery of [place] heart without angina pectoris Microalbuminuria Hypothyroidism due to acquired atrophy of thyroid Rheumatoid arthritis, seropositive, multiple sites (CMS/HCC V24, CMS/HCC V28) Obesity (BMI 30.0-34.9) Elevated random blood glucose level LIPID PANEL WITH REFLEX TO DIRECT LDL Routine 05/01/2025 8:37 AM EDT Coronary artery disease involving [place] coronary artery of [place] heart without angina pectoris Microalbuminuria Hypothyroidism due to acquired atrophy of thyroid Rheumatoid arthritis, seropositive, multiple sites (CMS/HCC V24, CMS/HCC V28) Obesity (BMI 30.0-34.9) Elevated random blood glucose level Hyperlipidemia LDL goal <55 THYROID STIMULATING HORMONE Routine 05/01/2025 8:37 AM EDT Coronary artery disease involving [place] coronary artery of [place] heart without angina pectoris Microalbuminuria Hypothyroidism due to acquired atrophy of thyroid Rheumatoid arthritis, seropositive, multiple sites (CMS/HCC V24, CMS/HCC V28) Obesity (BMI 30.0-34.9) Elevated random blood [...] LAB CHEMISTRY METHOD 05/01/2025 2:11 PM EDT [facility] Triglycerides 115 0 - 150 mg/dL LAB CHEMISTRY METHOD 05/01/2025 2:11 PM EDT [facility] HDL 53 >=40 mg/dL LAB CHEMISTRY METHOD 05/01/2025 2:11 PM EDT [facility] LDL Calculated 58 0 - 100 mg/dL LAB CHEMISTRY METHOD 05/01/2025 2:11 PM EDT [facility] VLDL Cholesterol Alexis 23 mg/dL LAB CHEMISTRY METHOD 05/01/2025 2:11 PM EDT [facility] Non HDL Chol. (LDL+VLDL) 81 <145 mg/dL LAB CHEMISTRY METHOD 05/01/2025 2:11 PM EDT [facility] Chol/HDL Ratio 2.5 0.0 - 4.4 LAB CHEMISTRY METHOD 05/01/2025 2:11 PM EDT [facility] Blood Venous blood specimen / Unknown Venipuncture / Unknown 05/01/2025 8:37 AM EDT 05/01/2025 8:37 AM EDT us Anju VASQUEZ LAB BLOOD ORDERABLES Final Re sult Performing Organization Address City/[facility]/ZIP Co de Phone Number [facility] [address] [place] [address], [place] [phone] * Vitamin D 25 hydroxy (05/01/2025 8:37 AM EDT) Vit D, 25-Hydroxy 63.5 30.0 - 80.0 ng/mL LAB CHEMISTRY METHOD 05/01/2025 3:30 PM EDT [facility] Blood Venous blood specimen / Unknown Venipuncture / Unknown 05/01/2025 8:37 AM EDT 05/01/2025 8:37 AM EDT us Anju VASQUEZ LAB BLOOD ORDERABLES Final Re sult [facility] [address] [place] [address], [place] [phone] * Thyroid stimulating hormone (05/01/2025 8:37 AM EDT) TSH 2.55 0.40 - 4.00 mcIU/mL LAB CHEMISTRY METHOD 05/01/2025 3:30 PM EDT [facility] Blood Venous blood specimen / Unknown Venipuncture / Unknown 05/01/2025 8:37 AM EDT 05/01/2025 8:37 AM EDT us Anju VASQUEZ LAB BLOOD ORDERABLES Final Re sult Performing Organization Address [facility]/ZIP Co de Phone Number [facility] [address] [place] [address], [place] [phone] * Hemoglobin A1c (05/01/2025 8:37 AM EDT) Hemoglobin A1C 6.2 <6.5 % LAB CHEMISTRY METHOD 05/01/2025 11:27 AM EDT [facility] Mean Bld Glu Estim. 131 mg/dL LAB CHEMISTRY METHOD 05/01/2025 11:27 AM EDT [facility] Blood Venous blood specimen / Unknown Venipuncture / Unknown 05/01/2025 8:37 AM EDT 05/01/2025 8:37 AM EDT us Anju VASQUEZ LAB BLOOD ORDERABLES Final Re sult Performing Organization Address [facility] Co de Phone Number [facility] [address] [place] [address], [place] [phone] * [place] Bx Ndl Lymph Node Breast [...] immunoreactive. BCL-2: Follicle center cells are negative. [place] light chain (ARNULFO): Subset of plasma cells are positive (greater than lambda). Lambda light chain (ARNULFO): Subset of plasma cells are positive. Interpretation: There is no epithelial cell population identified by Cytokeratin immunohistochemistry (No carcinoma is identified.) The lymphocytes show a generally employment representative distribution of CD3-positive T cells and SJ82-tkylgoma B cells, and follicle center cells are [...] on a cytokeratin immunohistochemical study on a inside account representative tissue block. ? The morphologic and [...] axilla, flow cytometry (technical component performed at [facility] [employer]): No monotypic B cell population identified. A [...] Signed Date: 04/02/2025 12:12 ET Workstation ID: [id number] Transcribed By: Self Edit Transcribed Date: 04/02/2025 [...] Pathology pending for the left breast. Location: [address], [address] -------- FINAL REPORT -------- Dictated By: Babak Rice Dictated Date: 03/23/2025 14:50 ET Assigned Physician: Babak Rice Reviewed and Electronically Signed By: Babak Rice Signed Date: 03/23/2025 14:54 ET Workstation ID: [id number] Transcribed By: Self Edit Transcribed Date: 03/23/2025 [...] included on mammography. us Landon Akhtar MD [facility] PROCEDURES Edited Result - Final * .PATHOLOGIST REVIEW FLOW CYTOMETRY (03/23/2025 2:15 PM EDT) Pathologist Interpretation Flow Cytometry Lymph node, left axilla, flow cytometry (technical component performed at [facility] [employer]): Diagnosis: No monotypic B cell population identified. [...] the accompanying core biopsy specimen (see separate [facility] Pathology Report, [id number]) is recommended. The flow cytometry results do [...] CD19, CD20, CD23, CD34, CD38, CD45, CD56, [place], Lambda (17 Markers) 9:12 AM EDT [facility] ([facility]) [facility] Lymph Node Structure of left axillary region / Unknown 03/23/2025 2:15 PM EDT 03/26/2025 9:10 AM EDT Narrative [facility] ([facility]) [facility] - 03/26/2025 9:12 AM EDT The Accessioning Component and Technical Component Processing of this test was completed at [facility] , [address] [place], [place] / [address] / [phone] / CLIA # [id number] / Ios Programmer(s): Ameena Interiano MD. The Technical Component Analysis of this test was completed at [facility] [place], [address] [place] [address], [place] / [address] / [phone] / CLIA # [id number] / Ios Programmer(s): Andrew Garcia M.D. The Professional Component of this test was completed by Khari Taylor M.D. at [facility], [facility] Department of Pathology, [place] [address] / / . This test was developed [...] MD LAB BLOOD ORDERABLES Final Re sult [facility] ([facility]) [facility] [address] [place] [address], * Leukemia, lymphoma evaluation by flow cytometry [...] immunoreactive. BCL-2: Follicle center cells are negative. [place] light chain (ARNULFO): Subset of plasma cells are positive (greater than lambda). Lambda light chain (ARNULFO): Subset of plasma cells are positive. Interpretation: There is no epithelial cell population identified by Cytokeratin immunohistochemistry (No carcinoma is identified.) The lymphocytes show a generally employment representative distribution of CD3-positive T cells and SI42-[id number] B cells, and follicle center cells are [...] on a cytokeratin immunohistochemical study on a inside account representative tissue block. The morphologic and immunophenotypic [...] axilla, flow cytometry (technical component performed at [facility]): No monotypic B cell population identified. A [...] CD19, CD20, CD23, CD34, CD38, CD45, CD56, [place], Lambda (17 Markers) 1:01 PM EDT [facility] ([facility]) [facility] Gross Description A. Axilla, [...] soft tissue core which is submitted to [facility] in [facility] for flow cytometry. One air dried touch prep is made for internal triage purposes. JERARDO 1:01 PM EDT [facility] Disclaimer NOTE: The immunohistochemical tests and in situ hybridization tests were developed and their performance characteristics were determined by [facility]. They have [...] fixed and paraffin embedded. 1:01 PM EDT [facility] Lymph Node Structure of left axillary region / Unknown 03/23/2025 2:15 PM EDT 03/23/2025 3:01 PM EDT us Babak Rice MD LAB PATHOLOGY ORDERABLES Kari schaefer Result [facility]) [facility] [address] [place] [address], * (ABNORMAL) MG Mammo Digital Diagnostic w [...] histology. Mammography location: [facility] [address], [address] -------- FINAL REPORT -------- Dictated By: Babak Rice Dictated Date: 03/14/2025 15:34 ET Assigned Physician: Babak Rice Reviewed and Electronically Signed By: Babak Rice Signed Date: 03/14/2025 15:57 ET Workstation ID: [id number] Transcribed By: Self Edit Transcribed Date: 03/14/2025 [...] concern. Computer-aided detection was employed with the [employer] 3-D. TISSUE DENSITY: The breasts are heterogeneously [...] concern. Computer-aided detection was employed with the [employer] AI 3-D. TISSUE DENSITY: The breasts are [...] ashistology. Mammography location: [facility] at [address], [address] -------- FINAL REPORT -------- Dictated By: Babak Rice Dictated Date: 03/14/2025 15:34 ET Assigned Physician: Babak Rice Reviewed and Electronically Signed By: Babak Rice Signed Date: 03/14/2025 15:57 ET Workstation ID: [id number] Transcribed By: Self Edit Transcribed Date: 03/14/2025 [...] histology. Mammography location: [facility] at [address], [address] -------- FINAL REPORT -------- Dictated By: Babak Rice Dictated Date: 03/14/2025 15:34 ET Assigned Physician: Babak Rice Reviewed and Electronically Signed By: Babak Rice Signed Date: 03/14/2025 15:57 ET Workstation ID: [id number] Transcribed By: Self Edit Transcribed Date: 03/14/2025 [...] concern. Computer-aided detection was employed with the [employer]io 3-D. TISSUE DENSITY: The breasts are heterogeneously [...] concern. Computer-aided detection was employed with the [employer] 3-D. TISSUE DENSITY: The breasts are heterogeneously [...] ashistology. Mammography location: [facility] at [address], [address] -------- FINAL REPORT -------- Dictated By: Babak Rice Dictated Date: 03/14/2025 15:34 ET Assigned Physician: Babak Rice Reviewed and Electronically Signed By: Babak Rice Signed Date: 03/14/2025 15:57 ET Workstation ID: [id number] Transcribed By: Self Edit Transcribed Date: 03/14/2025 15:44 ET us Landon Akhtar MD IMG US PROCEDURES Final Result * (ABNORMAL) Comprehensive metabolic panel (01/29/2025 7:57 AM EDT) Sodium 140 133 - 145 mmol/L LAB CHEMISTRY METHOD 01/29/2025 11:15 AM [facility] Potassium 4.2 3.5 - 5.5 mmol/L LAB CHEMISTRY METHOD 01/29/2025 11:15 AM [facility] Chloride 107 96 - 110 mmol/L LAB CHEMISTRY METHOD 01/29/2025 11:15 AM [facility] CO2 24 21 - 32 mmol/L LAB CHEMISTRY METHOD 01/29/2025 11:15 AM [facility] Anion Gap 9 3 - 11 LAB CHEMISTRY METHOD 01/29/2025 11:15 AM [facility] Glucose 109(H) 70 - 100 mg/dL LAB CHEMISTRY METHOD 01/29/2025 11:15 AM [facility] BUN 22 5 - 25 mg/dL LAB CHEMISTRY METHOD 01/29/2025 11:15 AM [facility] Creatinine 0.68 0.50 - 1.10 mg/dL LAB CHEMISTRY METHOD 01/29/2025 11:15 AM [facility] eGFR 99 >=60 mL/min/1. 73m2 LAB CHEMISTRY METHOD 01/29/2025 11:15 AM [facility] Comment:Calculation based on the Chronic Kidney Disease Epidemiology Collaboration (CKD-EPI) equation refit without adjustment for race. BUN/Creatinine Ratio 32.4 LAB CHEMISTRY METHOD 01/29/2025 11:15 AM [facility] Calcium 9.7 8.5 - 10.5 mg/dL LAB CHEMISTRY METHOD 01/29/2025 11:15 AM [facility] AST (SGOT) 17 10 - 42 unit/L LAB CHEMISTRY METHOD 01/29/2025 11:15 AM [facility] ALT (SGPT) 29 10 - 60 unit/L LAB CHEMISTRY METHOD 01/29/2025 11:15 AM EDT [facility] Alkaline Phosphatase 138(H) 42 - 121 unit/L LAB CHEMISTRY METHOD 01/29/2025 11:15 AM EDT [facility] Total Protein 8.2(H) 6.0 - 8.0 g/dL LAB CHEMISTRY METHOD 01/29/2025 11:15 AM EDT [facility] Albumin 3.4 3.2 - 5.0 g/dL LAB CHEMISTRY METHOD 01/29/2025 11:15 AM EDT [facility] Total Bilirubin 0.5 0.0 - 1.4 mg/dL LAB CHEMISTRY METHOD 01/29/2025 11:15 AM EDT [facility] Blood Venous blood specimen / Unknown Venipuncture / Unknown 01/29/2025 7:57 AM EDT 01/29/2025 9:29 AM EDT us Neil Castaneda MD LAB BLOOD ORDERABLES Final Result [facility] [address] [place] [address], * BD Bone Density DXA Axial Skeleton [...] (World Health Organization Fracture Risk Assessment) [facility] Department of Internal Medicine recommends using [...] alternative screening schedule based on mike Cordoba., [facility] October 22, 2011 for patients with osteopenia [...] Signed Date: 12/12/2024 09:30 ET Workstation ID: [id number] Transcribed By: Self Edit Transcribed Date: 12/12/2024 [...] (World Health Organization Fracture Risk Assessment) [facility] Department of Internal Medicine recommendsusing National [...] alternative screening schedule based on mike Cordoba., [facility] 2011 for patients with osteopenia (based on [...] Signed Date: 12/12/2024 09:30 ET Workstation ID: [id number] Transcribed By: Self Edit Transcribed Date: 12/12/2024 09:29 ET Princess Loyola CNRyan IMG DXA PROCEDURES Final Result * Colonoscopy (03/08/2024) Colonoscopy no interpretation , abstracted Anatomical Region Laterality Modality Other Historical Provider HEALTH MAINTENANCE Final Result * Cervical Cancer Screening: HPV (10/16/2021) Cervical Cancer Screening: HPV negative, abstracted Historical Provider HEALTH MAINTENANCE Final Result * Hepatitis C Screening (08/20/2011) Hepatitis C Screening abstracted Historical Provider HEALTH MAINTENANCE Final Result from Last 3 Months or Most Recently Relevant to Health Maintenance Insurance * Guarantor: Shahriar Green Account Type Relation to Patient Date of Phone Billing Address Personal/Family Self 1965 [phone] (Work) [address] [place] [phone] [facility] Care Teams Hall Cleaner Relationship Specialty Start Date End Date Kelsy Calle MD [address] [place] [phone] PCP - General 07/17/24
== END 2025-06-09 10:55 | disposition home or self-care (01) ==
LOC: HO.HMGCX 10:54
PROVIDERS: PCP Internal Medicine; Visit Provider Internal Medicine Rheumatology
DX: M05.9 Rheumatoid arthritis with rheumatoid factor, unspecified (principal); Z79.899 Other long term (current) drug therapy
CPT/HCPCS: 73030; 73080; 73130; 73630

== ENCOUNTER → 2025-06-09 10:57 | Outpatient (BNV) | payer OTHER, SELFPAY | PROVIDERS: PCP Internal Medicine; Visit Provider Radiology Diagnostic Radiology | DX: M05.9 Rheumatoid arthritis with rheumatoid factor, unspecified (principal) | CPT/HCPCS: 73030; 73080; 73130; 73630 ==

== ENCOUNTER 2025-09-08 11:37 | Outpatient (REF) | payer OTHER, SELFPAY ==
--- OUTSIDE RECORDS SUMMARY | 2025-09-03 17:22 | XMS_ITS | Encounter Summary ---
Author Organization [facility] Address [address] [place] [address] Care Team Providers Care Lunchroom Operator Name Role Phone Kelsy Calle MD Primary Care Provider [phone] Reason for Referral * Imaging (Routine) - Closed Specialty Diagnoses / Procedures Referred By Contac t Referred To Contact Radiology Diagnoses Axillary lymphadenopathy At high risk for breast cancer Procedures MG Mammo Digital Screening w Julianna bilat MG Mammo Digital Screening Landon Patel MD [address] [place] [phone] Phone: tel: fax: [address] Phone: tel: Referral ID Status Reason Start Date Expiration Date Visits Re quested Visits Authorized [id number] Closed 07/24/2025 07/24/2026 1 1 Reason for Visit * Imaging (Routine) - Closed Specialty Diagnoses / Procedures Referred By Contac t Referred To Contact Radiology Diagnoses Axillary lymphadenopathy At high risk for breast cancer Procedures MG Mammo Digital Screening w Julianna bilat MG Mammo Digital Screening bilat Landon Akhtar MD [address] [place] [address] Phone: tel: fax: [address] Phone: tel: Referral ID Status Reason Start Date Expiration Date Visits Re quested Visits Authorized [id number] Closed 07/24/2025 07/24/2026 1 1 Encounter Details Date Type Department Care Team (Latest Contact Info) Description 09/03/2025 5:22 PM EST - 09/03/2025 11:59 PM EST Hospital Encounter Radiology Department - [address] [phone] Axillary lymphadenopathy; At high risk for breast cancer Discharge Disposition: Home or Self Care Social History Tobacco Use Types Packs/Day Years Used Date Smoking Tobacco: Never Passive Smoke Exposure: Never Smokeless Tobacco: Never Alcohol Use Standard Drinks/Week Comments Yes 0 (1 standard drink = 0.6 oz pur e alcohol) Comments No Sex and Gender Information Value Date Recorded Sex Assigned at Female 11/30/2024 11:33 AM EST Legal Sex Female 7:52 PM EST Gender Identity Female 11/30/2024 11:33 AM EST Sexual Orientation Straight 11/30/2024 11 :33 AM EST documented as of this encounter Medications at Time of Discharge albuterol HFA (PROAIR HFA ; PROVENTIL HFA ; VENTOLIN HFA) 90 mcg/actuation inhaler Inhale 2 puffs by mouth every 6 (six) hours if needed for wheezing or shortness of breath. 10/07/2021 aspirin 81 mg chewable tablet Chew 1 tablet (81 mg total) 1 (one) time each day. for 360 days. - Oral 02/13/2019 atorvastatin (LIPITOR) 20 mg tablet TAKE 1 TABLET BY MOUTH EVERY DAY 90 tablet 1 07/09/2025 cholecalciferol (VITAMIN D-3) 50 mcg (2,000 unit) capsule TAKE 1 CAPSULE BY MOUTH EVERY DAY 90 capsule 3 11/14/2024 fluticasone furoate-vilanter oL (Breo Ellipta) 200-25 mcg/dose inhaler Inhale 1 puff by mouth 1 (one) time each day. 3 each 3 04/03/2025 hydroxychloroqui ne (PLAQUENIL) 200 mg tablet Take 1 tablet (200 mg total) by mouth 2 (two) times a day. 11/13/2015 levothyroxine (SYNTHROID, LEVOTHROID) 112 mcg tablet TAKE 1 TABLET BY MOUTH ONCE DAILY BEFORE BREAKFAST 90 tablet 1 07/19/2025 MULTIVITAMIN ORAL Take 1 tablet by mouth 1 (one) time each day. potassium citrate (UROCIT-K) 15 mEq SR tablet Take 1 tablet (15 mEq total) by mouth. 10/07/2021 UNABLE TO FIND 1 Device by Other route. Med Name: CPAP Regional pressure 8cm documented as of this encounter Discharge Disposition Disposition Code Departure Means Destination Home or Self Care documented in this encounter Plan of Treatment Upcoming Encounters Date Type Department Care Team (Late st Contact Info) Description 10/01/2025 2:00 PM EST Ancillary Procedure Pulmonology [address] [phone] 10/01/2025 2:45 PM EST Office Visit Pulmonology [address] [phone] Anel Murphy MD [address] [place] [phone] 10/08/2025 3:30 PM EST Office Visit Adult Medicine [address] [phone] Kelsy Calle MD [address] [place] [phone] 10/19/2025 3:00 PM EST Office Visit [facility] Hematology Oncology [address] [place] [phone] Neil Castaneda MD [address] [place] [phone] 12/25/2025 2:00 PM EDT Office Visit Breast Care [facility] [address] [place] [phone] Landon Akhtar MD [address] [place] [address] documented as of this encounter Procedures Procedure Name Priority Date/Time Associated Diagnosis Comments MG MAMMO DIGITAL SCREENING W JULIANNA BILAT Routine 09/03/2025 5:48 PM EST Axillary lymphadenopathy At high risk for breast cancer documented in this encounter Results * MG Mammo Digital Screening w Julianna bilat (09/03/2025 5:48 PM EST) Anatomical Region Laterality Modality Breast Bilateral Mammography 09/05/2025 1:57 PM EST Impressions 09/05/2025 2:06 PM EST Benign. BI-RADS CATEGORY: 2 - BENIGN RECOMMENDATION: Screening bilateral mammogram is recommended in 1 year. Mammo Location: [facility], [address] [place] [address], [id number], . -------- FINAL REPORT -------- Dictated By: Val Villareal Dictated Date: 09/05/2025 13:57 ET Assigned Physician: Val Villareal Reviewed and Electronically Signed By: Val Villareal Signed Date: 09/05/2025 14:06 ET Workstation ID: [id number] Transcribed By: Self Edit Transcribed Date: 09/05/2025 13:57 ET Narrative 09/05/2025 2:06 PM EST CLINICAL: 60 years old, Female, routine annual exam. COMPARISON: Mammograms dating back to 07/05/2021 with most recent of 08/19/2024. TECHNIQUE: Bilateral MLO and CC views were obtained digitally with 3-D mammogram (digital breast tomosynthesis). Computer-aided detection was utilized in evaluation of this exam (CAD). FINDINGS: There is no evidence of suspicious mass or architectural distortion. No worrisome calcifications are evident. There is a tissue marker in the medial left breast. There has been no significant change from prior exam(s). BREAST DENSITY: C - The breasts are heterogeneously dense which may obscure small masses. Procedure Note Val Villareal MD - 09/05/2025 CLINICAL: 60 years old, Female, routine annual exam. COMPARISON: Mammograms dating back to 07/05/2021 with most recent of08/19/2024. TECHNIQUE: Bilateral MLO and CC views were obtained digitally with 3-Dmammogram (digital breast tomosynthesis). Computer-aided detection wasutilized in evaluation of this exam (CAD). FINDINGS: There is no evidence of suspicious mass or architectural distortion. Noworrisome calcifications are evident. There is a tissue marker in themedial left breast. There has been no significant change from priorexam(s). BREAST DENSITY: C - The breasts are heterogeneously dense which mayobscure small masses. IMPRESSION: Benign. BI-RADS CATEGORY: 2 - BENIGN RECOMMENDATION: Screening bilateral mammogram is recommended in 1 year. Mammo Location: [facility], [address] [place] [address], [id number], . -------- FINAL REPORT -------- Dictated By: Val Villareal Dictated Date: 09/05/2025 13:57 ET Assigned Physician: Val Villareal Reviewed and Electronically Signed By: Val Villareal Signed Date: 09/05/2025 14:06 ET Workstation ID: [id number] Transcribed By: Self Edit Transcribed Date: 09/05/2025 13:57 ET Landon Akhtar MD IMG BI PROCEDURES Final Result documented in this encounter Visit Diagnoses Diagnosis Axillary lymphadenopathy Enlargement of lymph nodes At high risk for breast cancer documented in this encounter Care Teams Lunchroom Operator Relationship Specialty Start Date End Date Kelsy Calle MD [address] [place] [phone] PCP - General 07/17/24 documented as of this encounter
--- OUTSIDE RECORDS SUMMARY | 2025-09-08 11:41 | XMS_ITS | Clinical Summary ---
Author Organization 175 [facility] Address [address] [place] [address] Phone Care Team Providers Care Timber Rider Name Role Phone Kelsy Calle MD Primary Care Provider [phone] Allergies Active Allergy Reactions Criticality Noted Date [...] Med Name: CPAP Regional pressure 8cm Active cholecalciferol (VITAMIN D-3) 50 mcg (2,000 unit) capsule TAKE 1 CAPSULE BY MOUTH EVERY DAY 90 capsule 3 5 Active fluticasone furoate-vilante roL (Breo Ellipta) 200-25 mcg/dose inhaler Inhale 1 puff by mouth 1 (one) time each day. 3 each 3 5 04/03/20 26 Active atorvastatin (LIPITOR) 20 mg tablet TAKE 1 TABLET BY MOUTH EVERY DAY 90 tablet 1 5 Active levothyroxine (SYNTHROID, LEVOTHROID) 112 mcg tablet TAKE 1 TABLET BY MOUTH ONCE DAILY BEFORE BREAKFAST 90 tablet 1 5 Active Active Problems Problem Noted Date Diagnosed Date Prediabetes 05/01/2025 IgG lambda monoclonal gammopathy 07/12/2024 Lazy eye, left 07/12/2024 Eczema 02/04/2024 At high risk for breast cancer 12/06/2023 Staghorn calculus 05/01/2021 Overview (11/19/2024): 03/24 large, stent placed Asthma 04/27/2020 Hyperlipidemia 04/07/2019 Assessment & Plan (06/14/2025 3:49 PM EDT): Last lipid panel reviewed and under excellent control, total cholesterol 134, LDL 58. Continue atorvastatin as prescribed. Severe obesity (BMI 35.0-39. 9) with comorbidity ([facility] V24, [facility] V28) 08/19/2018 Microalbuminuria 02/02/2018 Obstructive sleep apnea 01/24/2018 Overview (11/19/2024): [facility] Home Polysomnogram: Date 01/18/2018; AHI 12, Unclassified apneas 1; Obstructive apneas 5; Central apneas 0; Mixed apneas 0; hypopneas 65; average oxygen saturation 88% (lowest 74% with saturations <88% for 5% or more of study) - Obstructive Sleep Apnea - mild; mostly hyopneas; with sleep related hypoventilation by 2018 home polysomnogram. Bicornuate uterus 08/10/2016 Rheumatoid arthritis, seropo sitive, multiple sites ([facility] V24, [facility] V28) 01/30/2015 Overview (11/19/2024): Onset ~ 2008. Pos CIERA, pos RF, pos CCP Ab, neg anti-SAMIRA. Hydroxychloroquine started 02/15; eye exam OK 10/19, 10/20, 10/21, 10/22, 11/23, 10/2020 Overactive bladder 01/24/2015 Seborrheic dermatitis 06/08/2014 Overview (11/19/2024): Allergic rhinitis 08/19/2011 Hypothyroid 04/10/2010 Congenital stenosis of pulmonary valve Overview (11/19/2024): Successful balloon valvuloplasty 1994 Assessment & Plan (06/14/2025 3:54 PM EDT): S/p balloon valvuloplasty in 1994 at [facility]. Updated echocardiogram in December showed mild to moderate pulmonic valve regurgitation and mild pulmonic valve stenosis with peak gradeint of 30 mmHg which is stable compared with prior echo in 2019. Will continue to monitor with future echocardiograms. Ventricular septal defect 11/09/2005 Overview (11/19/2024): Spontaneous closure as of 2013. Assessment & Plan (06/14/2025 3:53 PM EDT): Limited echocardiogram in March 2021 showed a likely intracardiac shunt seen by agitated normal saline with the Valsalva maneuver and no VSD seen by color Doppler. Assessment & Plan (10/12/2024 4:13 PM EST): [...] artery pressure. CAD (coronary artery disease) 04/30/2021 06/14/2025 Overview (11/19/2024): Mild luminal irregularities Assessment & Plan (10/12/2024 4:13 PM EST): Orders: ECG 12 lead Encounters Date Type Department Care Team Description 09/03/2025 5:22 PM EST - 09/03/2025 11:59 PM EST Hospital Encounter Radiology Department - [address] [phone] Axillary lymphadenopathy; At high risk for breast cancer Discharge Disposition: Home or Self Care 08/23/2025 3:15 PM EST Office Visit [facility] Hematology Oncology [address] [place] [phone] Neil Castaneda MD Anemia, unspecified type (Primary Dx) 08/06/2025 8:55 AM EST Lab Draw Station - [facility] [address] [phone] IgG lambda monoclonal gammopathy 06/14/2025 2:40 PM EDT Office Visit [facility] - [facility] [address] [facility] [address] [place] [phone] Kary Guerra NP Congenital stenosis of pulmonary valve (Primary Dx); Ventricular septal defect; Other hyperlipidemia from Last 3 Months Immunizations Immunization Administration Dates Next Due Influenza Quadravalent, MDCK [...] subun it RSVpreF, 0.5mL, Preservative Free (Arexvy) 50yo and older 02/27/2025 Td Tetanus diptheria (Tdvax) [...] (BMI 35.0-39. 9) with comorbidity (CMS/HCC V24, [facility] V28) 08/19/2018 Staghorn calculus 05/01/2021 : 03/24 large, stent placed Calculus of kidney left removal at [facility] 05/2021 Family History Medical History Relation Name [...] Sign Reading Time Taken Comments Blood Pressure 140/61 08/23/2025 3:25 PM EST Pulse 77 08/23/2025 3:25 PM EST Temperature 36 C (96.8 F) 08/23/2025 3:25 PM EST Respiratory Rate 18 04/27/2025 11:19 AM EDT Oxygen Saturation 100% 08/23/2025 3:25 PM EST Inhaled Oxygen Concentration - - Weight 88 kg (194 lb) 08/23/2025 3:25 PM EST Height 157.5 cm (5' 2 ) 06/14/2025 2:56 PM EDT Body Mass Index 35.48 06/14/2025 2:56 PM EDT Plan of Treatment Upcoming Encounters Date Type Department Care Team (Late st Contact Info) Description 10/01/2025 2:00 PM EST Ancillary Procedure Pulmonology - [address] [phone] 10/01/2025 2:45 PM EST Office Visit Pulmonology [address] [phone] Anel Murphy MD [address] [place] [phone] 10/08/2025 3:30 PM EST Office Visit Adult Medicine [address], [place] [phone] Kelsy Calle MD [address] [place], [place] 10/19/2025 3:00 PM EST Office Visit [facility] Hematology Oncology [address] [place] [phone] Neil Castaneda MD [address] [place] [phone] 12/25/2025 2:00 PM EDT Office Visit [address] [phone] Landon Akhtar MD [address] [place] [address] Health Maintenance Due Date Last Done Comments HIV Screening 09/12/2022 Social Influencers of Health Screening 09/12/2022 Depression Screening 10/04/2024 COVID-19 Vaccine ( season) 2025 10/07/2022, 10/19/2021, 02/27/2021, Additional history exists Hypertension/CHF/CAD Annual BMP Blood Test 08/06/2026 08/06/2025, 01/29/2025, 05/24/2024, Additional history exists Breast Cancer Screening 09/03/2026 09/03/20, 03/14/2025, 08/19/2024, Additional history exists Cervical Cancer Screening: HPV [...] this topic Medical Devices Implanted Type Area Building Analyst/Supervisor Device Identifier Shelf Expiration Date Model / Serial / Lot Marker Breast Biopsy 15g Rigid Ti Barrel Hydromark - [id number] - [id number] Implanted:Qty: 1 on 03/23/2025 by Babak Rice MD at [facility] Imaging Implants Left: Axilla [employer] [id number] 07/13/2027 4010-02- 15-T1 / [id number] / [id number] Procedures Procedure Name Priority Date/Time Associated Diagnosis Comments MG MAMMO DIGITAL SCREENING W FLAVIO BILAT Routine 09/03/2025 5:48 PM EST Axillary lymphadenopathy At high risk for breast cancer PA PROTEIN ELECTROPHORETIC FRACTIONATION & QUANTITATION SERUM Routine 08/06/2025 8:54 AM EST IgG lambda monoclonal gammopathy PA IMMUNOFIXATION ELECTROPHORESIS SERUM Routine 08/06/2025 8:54 AM EST IgG lambda monoclonal gammopathy PROTEIN, TOTAL Routine 08/06/2025 8:54 AM EST IgG lambda monoclonal gammopathy IMMUNOGLOBULINS IGG, IGA, IGM Routine 08/06/2025 8:54 AM EST IgG lambda monoclonal gammopathy IMMUNOFIXATION ELECTROPHORESIS Routine 08/06/2025 8:54 AM EST IgG lambda monoclonal gammopathy CBC WITH AUTO DIFFERENTIAL Routine 08/06/2025 8:54 AM EST IgG lambda monoclonal gammopathy IMMUNOFIXATION ELECTROPHORESIS Routine 08/06/2025 8:54 AM EST IgG lambda monoclonal gammopathy PROTEIN ELECTROPHORESIS, SERUM Routine 08/06/2025 8:54 AM EST IgG lambda monoclonal gammopathy KAPPA-LAMBDA QUANTITATIVE FREE LIGHT CHAINS Routine 08/06/2025 8:54 AM EST IgG lambda monoclonal gammopathy COMPREHENSIVE METABOLIC PANEL Routine 08/06/2025 8:54 AM EST IgG lambda monoclonal gammopathy CBC AND DIFFERENTIAL Routine 08/06/2025 8:54 AM EST IgG lambda monoclonal gammopathy LIPID PANEL WITH REFLEX TO DIRECT LDL Routine 05/01/2025 8:37 AM EDT Coronary artery disease involving wiyot coronary artery of wiyot heart without angina pectoris Microalbuminuria Hypothyroidism due to acquired atrophy of thyroid Rheumatoid arthritis, seropositive, multiple sites ([facility] V24, [facility] V28) Obesity (BMI 30.0-34.9) Elevated random blood glucose level Hyperlipidemia LDL goal <55 BD BONE DENSITY DXA AXIAL SKELETON Routine 12/11/2024 2:05 PM EDT Menopausal and postmenopausal disorder HM COLONOSCOPY Routine 03/08/2024 HM HPV Routine 10/16/2021 HEPATITIS C SCREENING Routine 08/20/2011 from Last 3 Months or Most Recently Relevant to Health Maintenance Results * MG Mammo Digital Screening w Flavio bilat (09/03/2025 5:48 PM EST) Anatomical Region Laterality Modality Breast Bilateral Mammography 09/05/2025 1:57 PM EST Impressions 09/05/2025 2:06 PM EST Benign. BI-RADS CATEGORY: 2 - BENIGN RECOMMENDATION: Screening bilateral mammogram is recommended in 1 year. Mammo Location: [facility], [address] [place] [address], [id number], . -------- FINAL REPORT -------- Dictated By: Val Villareal Dictated Date: 09/05/2025 13:57 ET Assigned Physician: Val Villareal Reviewed and Electronically Signed By: Val Villareal Signed Date: 09/05/2025 14:06 ET Workstation ID: [id number] Transcribed By: Self Edit Transcribed Date: 09/05/2025 [...] is recommended in 1 year. Mammo Location: [facility], [address] [place] [address], [phone], . -------- FINAL REPORT -------- Dictated By: Val Villareal Dictated Date: 09/05/2025 13:57 ET Assigned Physician: Val Villareal Reviewed and Electronically Signed By: Val Villareal Signed Date: 09/05/2025 14:06 ET Workstation ID: [id number] Transcribed By: Self Edit Transcribed Date: 09/05/2025 13:57 ET Landon Akhtar MD IMG BI PROCEDURES Final Result * Pathologist Review Immunofixation (08/06/2025 8:54 AM EST) Pathologist Interpretation Elaine Sandra MD 08/08/2025 2:26 PM EST [facility] Blood Venous blood specimen / Unknown Venipuncture / Unknown 08/06/2025 8:54 AM EST 08/06/2025 11:33 AM EST Neil Castaneda MD LAB BLOOD ORDERABLES Final Result [facility] [address] [place] [address], [place] [phone] * PATHOLOGIST REVIEW PROTEIN ELECTROPHORESIS (08/06/2025 8:54 AM EST) Pathologist Interpretation Elaine Sandra MD 08/08/2025 2:28 PM EST [facility] Blood Venous blood specimen / Unknown Venipuncture / Unknown 08/06/2025 8:54 AM EST 08/06/2025 11:33 AM EST Neil Castaneda MD LAB BLOOD ORDERABLES Final Result Performing Organization Address [facility]/ZIP Co de Phone Number [facility] [address] [place] [address], * (ABNORMAL) [place]-lambda free light chains, quantitative (08/06/2025 8:54 AM EST) [place] Free Light Chain 4.87(H) 0.33 - 1.94 mg/dL 08/08/2025 10:53 AM EST [facility] Lambda Free Light Chain 4.59(H) 0.57 - 2.63 mg/dL 08/08/2025 10:53 AM EST [facility] [place]/Lambda FLC Ratio 1.06 0.26 - 1.65 08/08/2025 10:53 AM EST [facility] Comment: Test performed at [facility], [address] , [place] [address] Elen Miguel MD, PhD - Intelligence Officer Basic Blood Venous blood specimen / Unknown Venipuncture / Unknown 08/06/2025 8:54 AM EST 08/06/2025 11:33 AM EST Neil Castaneda MD LAB BLOOD ORDERABLES Final Result [facility] [address] [place] [address] * (ABNORMAL) CBC auto differential (08/06/2025 8:54 AM EST) WBC 7.4 4.8 - 10.8 K/[facility] HEMETOLOGY METHOD 08/06/2025 12:46 PM EST [facility] RBC 4.00 3.80 - 4.80 M/[facility] HEMETOLOGY METHOD 08/06/2025 12:46 PM EST [facility] Hemoglobin 10.3(L) 11.5 - 16.0 g/dL LAB HEMETOLOGY METHOD 08/06/2025 12:46 PM [facility] Hematocrit 33.5(L) 35.0 - 47.0 % LAB HEMETOLOGY METHOD 08/06/2025 12:46 PM [facility] MCV 83.1 79.0 - 98.0 FL LAB HEMETOLOGY METHOD 08/06/2025 12:46 PM [facility] MCH 25.6(L) 27.0 - 32.0 pcg LAB HEMETOLOGY METHOD 08/06/2025 12:46 PM [facility] MCHC 30.7(L) 32.0 - 37.0 g/dL LAB HEMETOLOGY METHOD 08/06/2025 12:46 PM [facility] RDW 15.6(H) 11.0 - 15.0 % LAB HEMETOLOGY METHOD 08/06/2025 12:46 PM [facility] Platelets 336 130 - 400 K/mcL LAB HEMETOLOGY METHOD 08/06/2025 12:46 PM [facility] MPV 10.5 7.0 - 11.0 FL LAB HEMETOLOGY METHOD 08/06/2025 12:46 PM [facility] NRBC 0.0 <1.0 % LAB HEMETOLOGY METHOD 08/06/2025 12:46 PM [facility] NRBC Absolute 0.00 <0.10 K/mcL LAB HEMETOLOGY METHOD 08/06/2025 12:46 PM [facility] Neutrophils Relative 64.0 % LAB HEMETOLOGY METHOD 08/06/2025 12:46 PM [facility] Lymphocytes Relative 21.3 % LAB HEMETOLOGY METHOD 08/06/2025 12:46 PM [facility] Monocytes Relative 9.1 % LAB HEMETOLOGY METHOD 08/06/2025 12:46 PM [facility] Eosinophils Relative 4.5 % LAB HEMETOLOGY METHOD 08/06/2025 12:46 PM [facility] Basophils Relative 0.7 % LAB HEMETOLOGY METHOD 08/06/2025 12:46 PM [facility] Immature Granulocytes Relative 0.4 % LAB HEMETOLOGY METHOD 08/06/2025 12:46 PM [facility] Neutrophils Absolute 4.72 1.50 - 7.00 K/mcL LAB HEMETOLOGY METHOD 08/06/2025 12:46 PM [facility] Lymphocytes Absolute 1.57 1.00 - 5.00 K/mcL LAB HEMETOLOGY METHOD 08/06/2025 12:46 PM [facility] Monocytes Absolute 0.67 0.20 - 1.00 K/mcL LAB HEMETOLOGY METHOD 08/06/2025 12:46 PM [facility] Eosinophils Absolute 0.33 0.00 - 0.50 K/mcL LAB HEMETOLOGY METHOD 08/06/2025 12:46 PM [facility] Basophils Absolute 0.05 0.00 - 0.20 K/mcL LAB HEMETOLOGY METHOD 08/06/2025 12:46 PM [facility] Immature Granulocytes Absolute 0.03 0.00 - 0.03 K/mcL LAB HEMETOLOGY METHOD 08/06/2025 12:46 PM [facility] Blood Venous blood specimen / Unknown Venipuncture / Unknown 08/06/2025 8:54 AM EST 08/06/2025 11:34 AM EST us Neil Castaneda MD LAB BLOOD ORDERABLES Final Result [facility] [address] [place] [address], * Immunofixation electrophoresis serum (08/06/2025 8:54 AM EST) Immunofixation Result, Serum IgG Lambda monoclonal immunoglobulins detected. LAB CHEMISTRY METHOD 08/08/2025 2:26 PM EST [facility] Blood Venous blood specimen / Unknown Venipuncture / Unknown 08/06/2025 8:54 AM EST 08/06/2025 11:33 AM EST Neil Castaneda MD LAB BLOOD ORDERABLES Final Result [facility] [address] [place] [address], [place] [phone] * (ABNORMAL) Immunoglobulins IgG, IgA, IgM (08/06/2025 8:54 AM EST) [facility] Total IgG 1,710(H) 549 - 1,584 mg/dL LAB CHEMISTRY METHOD 08/06/2025 12:17 PM EST [facility] IgA 307 61 - 348 mg/dL LAB CHEMISTRY METHOD 08/06/2025 12:17 PM EST [facility] IgM 77 23 - 259 mg/dL LAB CHEMISTRY METHOD 08/06/2025 12:17 PM EST [facility] Blood Venous blood specimen / Unknown Venipuncture / Unknown 08/06/2025 8:54 AM EST 08/06/2025 11:33 AM EST Neil Castaneda MD LAB BLOOD ORDERABLES Final Result [facility] [address] [place] [address], [place] [phone] * Protein electrophoresis, serum (08/06/2025 8:54 AM EST) [facility] Total Protein 7.7 6.0 - 8.0 g/dL LAB CHEMISTRY METHOD 08/08/2025 2:28 PM EST [facility] Albumin, Serum 3.1 2.9 - 4.1 g/dL LAB CHEMISTRY METHOD 08/08/2025 2:28 PM EST [facility] Alpha 1 Globulin (g/dL) 0.3 0.1 - 0.5 g/dL LAB CHEMISTRY METHOD 08/08/2025 2:28 PM [facility] Alpha 2 Globulin (g/dL) 1.3 0.7 - 1.5 g/dL LAB CHEMISTRY METHOD 08/08/2025 2:28 PM [facility] Beta (g/dL) 1.2 0.7 - 1.5 g/dL LAB CHEMISTRY METHOD 08/08/2025 2:28 PM [facility] Gamma Globulin (g/dL) 1.9 0.7 - 1.9 g/dL LAB CHEMISTRY METHOD 08/08/2025 2:28 PM [facility] PARAPROTEIN LAB CHEMISTRY METHOD 08/08/2025 2:28 PM [facility] Comment:Immeasurable SPEP Interpretation Monoclonal gammopathy Abnormal pattern with immeasurable M-spike of gamma globulin mobility. Serum Immunofixation performed on this specimen demonstrated IgG Lambda monoclonal protein. LAB CHEMISTRY METHOD 08/08/2025 2:28 PM [facility] Blood Venous blood specimen / Unknown Venipuncture / Unknown 08/06/2025 8:54 AM EST 08/06/2025 11:33 AM EST us Neil Castaneda MD LAB BLOOD ORDERABLES Final Result [facility] [address] [place] [address], * Protein, total (08/06/2025 8:54 AM EST) Total Protein 7.7 6.0 - 8.0 g/dL LAB CHEMISTRY METHOD 08/06/2025 12:04 PM [facility] Blood Venous blood specimen / Unknown Venipuncture / Unknown 08/06/2025 8:54 AM EST 08/06/2025 11:33 AM EST Neil Castaneda MD LAB BLOOD ORDERABLES Final Result [facility] [address] [place] [address], * Comprehensive metabolic panel (08/06/2025 8:54 AM EST) Sodium 135 133 - 145 mmol/L LAB CHEMISTRY METHOD 08/06/2025 12:17 PM [facility] Potassium 4.2 3.5 - 5.5 mmol/L LAB CHEMISTRY METHOD 08/06/2025 12:17 PM [facility] Chloride 102 96 - 110 mmol/L LAB CHEMISTRY METHOD 08/06/2025 12:17 PM [facility] CO2 29 21 - 32 mmol/L LAB CHEMISTRY METHOD 08/06/2025 12:17 PM [facility] Anion Gap 4 3 - 11 LAB CHEMISTRY METHOD 08/06/2025 12:17 PM [facility] Glucose 83 70 - 100 mg/dL LAB CHEMISTRY METHOD 08/06/2025 12:17 PM [facility] BUN 16 5 - 25 mg/dL LAB CHEMISTRY METHOD 08/06/2025 12:17 PM [facility] Creatinine 0.63 0.50 - 1.10 mg/dL LAB CHEMISTRY METHOD 08/06/2025 12:17 PM [facility] eGFR 101 >=60 mL/min/1. 73m2 LAB CHEMISTRY METHOD 08/06/2025 12:17 PM [facility] Comment:Calculation based on the Chronic Kidney Disease Epidemiology Collaboration (CKD-EPI) equation refit without adjustment for race. BUN/Creatinine Ratio 25.4 LAB CHEMISTRY METHOD 08/06/2025 12:17 PM [facility] Calcium 9.8 8.5 - 10.5 mg/dL LAB CHEMISTRY METHOD 08/06/2025 12:17 PM [facility] AST (SGOT) 10 10 - 42 unit/L LAB CHEMISTRY METHOD 08/06/2025 12:17 PM [facility] ALT (SGPT) 28 10 - 60 unit/L LAB CHEMISTRY METHOD 08/06/2025 12:17 PM [facility] Alkaline Phosphatase 114 42 - 121 unit/L LAB CHEMISTRY METHOD 08/06/2025 12:17 PM [facility] Total Protein 7.7 6.0 - 8.0 g/dL LAB CHEMISTRY METHOD 08/06/2025 12:17 PM [facility] Albumin 3.2 3.2 - 5.0 g/dL LAB CHEMISTRY METHOD 08/06/2025 12:17 PM [facility] Total Bilirubin 0.4 0.0 - 1.4 mg/dL LAB CHEMISTRY METHOD 08/06/2025 12:17 PM [facility] Blood Venous blood specimen / Unknown Venipuncture / Unknown 08/06/2025 8:54 AM EST 08/06/2025 11:33 AM EST Neil Castaneda MD LAB BLOOD ORDERABLES Final Result [facility] [address] [place] [address], * Lipid panel with reflex to direct LDL (05/01/2025 8:37 AM EDT) Cholesterol 134 0 - 200 mg/dL LAB CHEMISTRY METHOD 05/01/2025 2:11 PM EDT [facility] Triglycerides 115 0 - 150 mg/dL LAB CHEMISTRY METHOD 05/01/2025 2:11 PM EDT [facility] HDL 53 >=40 mg/dL LAB CHEMISTRY METHOD 05/01/2025 2:11 PM EDT [facility] LDL Calculated 58 0 - 100 mg/dL LAB CHEMISTRY METHOD 05/01/2025 2:11 PM EDT [facility] VLDL Cholesterol Alexis 23 mg/dL LAB CHEMISTRY METHOD 05/01/2025 2:11 PM EDT [facility] Non HDL Chol. (LDL+VLDL) 81 <145 mg/dL LAB CHEMISTRY METHOD 05/01/2025 2:11 PM EDT [facility] Chol/HDL Ratio 2.5 0.0 - 4.4 LAB CHEMISTRY METHOD 05/01/2025 2:11 PM EDT [facility] Blood Venous blood specimen / Unknown Venipuncture / Unknown 05/01/2025 8:37 AM EDT 05/01/2025 8:37 AM EDT us Anju VASQUEZ LAB BLOOD ORDERABLES Final Re sult [facility] [address] [place] [address], * BD Bone Density DXA Axial Skeleton [...] (World Health Organization Fracture Risk Assessment) The [facility] Department of Internal Medicine recommends using National [...] alternative screening schedule based on mike Cordoba., [facility] October 22, 2011 for patients with osteopenia [...] Signed Date: 12/12/2024 09:30 ET Workstation ID: [id number] Transcribed By: Self Edit Transcribed Date: 12/12/2024 [...] (World Health Organization Fracture Risk Assessment) The [facility] Department of Internal Medicine recommendsusing National Osteoporosis [...] alternative screening schedule based on mike Cordoba., [facility] 2011 for patients with osteopenia (based on [...] Signed Date: 12/12/2024 09:30 ET Workstation ID: [id number] Transcribed By: Self Edit Transcribed Date: 12/12/2024 [...] of Phone Billing Address Personal/Family Self 1965 [phone] (Work) [address] [place] [phone] [facility] Care Teams Timber Rider Relationship Specialty Start Date End Date Kelsy Calle MD [address] [place] [phone] PCP - General 07/17/24
[2025-09-08 13:47] LABS: MANUAL DIFF FLAG NO
[2025-09-08 13:51] LABS: Hematocrit 33.2 % (37.0-47.0); Hemoglobin 10.6 g/dl (12.0-16.0); Imm Gran Abs Auto 0.02 X10*3/uL (0.00-0.03); Imm Gran Pct Auto 0.3 % (0.0-0.4); Lymphocytes Absolute Auto 1.8 X10*3/uL (1.2-4.9); Mean Corpuscular HGB Conc 31.9 g/dl (31.0-35.0); Mean Corpuscular Hemoglobin 25.6 pg (27.0-33.0); Mean Corpuscular Volume 80.2 fL (80.0-98.0); NRBC Abs Auto 0.000 X10*3/uL (0.0-0.012); NRBC Pct Auto 0.0 /100WBC (0.0-0.2); Platelet Count 335 X10*3/uL (160-400); Red Blood Count 4.14 X10*6/uL (4.20-5.50); White Blood Count 6.3 X10*3/uL (4.8-10.8)
[2025-09-08 14:07] LABS: Alanine Aminotransferase 15 U/L (0-31); Aspartate Amino Transferase 21 U/L (5-31); Estimated Glomerular Filt Rate > 60
[2025-09-08 14:29] LABS: Erythrocyte Sedimentation Rate 83 MM/HR (0-20)
== END 2025-09-08 11:38 | disposition home or self-care (01) ==
LOC: HO.HMGCLDS 11:37
PROVIDERS: PCP Internal Medicine; Visit Provider Internal Medicine Rheumatology
DX: M05.9 Rheumatoid arthritis with rheumatoid factor, unspecified (principal); Z79.60 Long term (current) use of unspecified immunomodulators and immunosuppressants
CPT/HCPCS: 36415; 82565; 84450; 84460; 85025; 85652; 86140; 86200; 86431

== ENCOUNTER 2025-09-20 12:53 | Outpatient (AMB) | payer OTHER, SELFPAY ==
--- OUTSIDE RECORDS SUMMARY | 2025-09-14 23:59 | XMS_ITS | Continuity of Care Document ---
Author Organization [facility] Address [address] [place] [address]- Care Team Providers Care Construction Consultant Name Role Phone Kelsy Calle MD Primary Care Physician [phone] Encounter 09/07/25 - 09/14/25 [facility] [address], [address] [place] [address]- Attending Physician: Merlyn Morrell Admitting Physician: Merlyn Morrell Referring Physician: Merlyn Morrell Encounter Type: OutPatient One Time Allergies, Adverse Reactions, Alerts Substance Criticality Severity Reaction Reaction Severity Status sulfa drugs rash Active Pet Dander Active Dust Active Immunizations Given and Recorded Vaccine Date Status Refusal Reason SARS-CoV-2 (COVID-19) mRNA-1273 vaccine 02/27/21 R ecorded SARS-CoV-2 (COVID-19) mRNA-1273 vaccine 01/30/21 R ecorded influenza virus vaccine, inactivated 05/29/20 Farzad rded influenza virus vaccine, inactivated 06/30/19 Farzad rded influenza virus vaccine, inactivated 07/01/18 Farzad rded influenza virus vaccine, inactivated 06/20/16 Farzad rded influenza virus vaccine, inactivated 06/16/15 Farzad rded influenza virus vaccine, inactivated 08/01/14 Farzad rded influenza virus vaccine, inactivated 06/29/13 Farzad rded influenza virus vaccine, inactivated 06/22/11 Farzad rded influenza virus vaccine, inactivated 06/24/09 Farzad rded influenza virus vaccine, inactivated 06/22/08 Farzad rded influenza virus vaccine, inactivated 08/09/07 Farzad rded influenza virus vaccine, inactivated 08/22/05 Farzad rded tetanus-diphtheria toxoids (Td) 08/04/17 Recorded pneumococcal 13-valent vaccine 08/04/17 Recorded tetanus/diphtheria/pertussis, acel(Tdap) 08/09/07 Recorded Medications acetaminophen 500 mg oral tablet 2 tablet = 1,000 mg, By Mouth, Daily, PRN Pain, Maintenance, 05/07/21 1:59:00 PM EDT, Partial fill upon patient request if the prescription is for a schedule II opioid drug. Start Date: 05/07/21 Status: Ordered Medication Dispense Status: Completed Total Allowed Fills: 1 Fills Dispensed: 0 Albuterol (Eqv-ProAir HFA) 2 puffs, Inhalation, Every 6 hours, PRN Wheezing/Shortness of Breath, 0 Refills, Maintenance, 04/28/21 9:28:00 AM EDT, Partial fill upon patient request if the prescription is for a schedule II opioiddrug. Start Date: 04/28/21 Status: Ordered Medication Dispense Status: Completed Total Allowed Fills: 1 Fills Dispensed: 0 aspirin 81 mg oral delayed release tablet 81 mg, 1, tablet, By Mouth, Daily, Refills 0, Maintenance, 04/28/21 9:12:00 AM EDT, Partial fill upon patient request if the prescription is for a schedule II opioid drug. Start Date: 04/28/21 Status: Ordered Medication Dispense Status: Completed Total Allowed Fills: 1 Fills Dispensed: 0 atorvastatin 20 mg oral tablet 1 tablet = 20 mg, By Mouth, Daily, 0 Refills, Maintenance, 04/28/21 9:12:00 AM EDT, Tablet, Partial fill upon patient request if the prescription is for a schedule II opioid drug. Start Date: 04/28/21 Status: Ordered Medication Dispense Status: Completed Total Allowed Fills: 1 Fills Dispensed: 0 ciprofloxacin 250 mg oral tablet 1 tablet = 250 mg, By Mouth, Every Wednesday, Wednesday and Wednesday Start Date: 05/07/21 Status: Ordered Medication Dispense Status: Completed Total Allowed Fills: 1 Fills Dispensed: 0 fexofenadine 180 mg oral tablet 1 tablet = 180 mg, By Mouth, Daily, 0 Refills, Maintenance, 04/28/21 9:08:00 AM EDT, Tablet, Partialfill upon patient request if the prescription is for a schedule II opioid drug. Start Date: 04/28/21 Status: Ordered Medication Dispense Status: Completed Total Allowed Fills: 1 Fills Dispensed: 0 Flovent HFA 220 mcg/inh inhalation aerosol 1 puffs, Inhalation, 2 times a day, 0 Refills, Maintenance, 04/28/21 9:16:00 AM EDT, Aerosol, Partial fill upon patient request if the prescription is for a schedule II opioid drug. Start Date: 04/28/21 Status: Ordered Medication Dispense Status: Completed Total Allowed Fills: 1 Fills Dispensed: 0 Glucosamine 1 tablet, By Mouth, Daily, Maintenance, 05/07/21 1:58:00 PM EDT, Partial fill upon patient request ifthe prescription is for a schedule II opioid drug. Start Date: 05/07/21 Status: Ordered Medication Dispense Status: Completed Total Allowed Fills: 1 Fills Dispensed: 0 hydroxychloroquine 200 mg oral tablet 1 tablet = 200 mg, By Mouth, 2 times a day, 0 Refills, Maintenance, 11/13/15 6:47:12 AM EST, Tablet Start Date: 11/13/15 Status: Ordered Medication Dispense Status: Completed Total Allowed Fills: 1 Fills Dispensed: 0 levothyroxine 75 mcg (0.075 mg) oral tablet 1 tablet = 75 mcg, By Mouth, Daily, 0 Refills, Maintenance, 11/27/13 2:49:58 PM EST Start Date: 11/27/13 Status: Ordered Medication Dispense Status: Completed Total Allowed Fills: 1 Fills Dispensed: 0 Lysine 1 tablet, By Mouth, Daily, Maintenance, 05/07/21 1:58:00 PM EDT, Partial fill upon patient request ifthe prescription is for a schedule II opioid drug. Start Date: 05/07/21 Status: Ordered Medication Dispense Status: Completed Total Allowed Fills: 1 Fills Dispensed: 0 Multivitamin 1 tablet, By Mouth, Daily, 0 Refills, Maintenance, 11/27/13 2:51:29 PM EST Start Date: 11/27/13 Status: Ordered Medication Dispense Status: Completed Total Allowed Fills: 1 Fills Dispensed: 0 Problem List Condition Confirmation Course Effective Dates Status Health St atus Informant Mixed stress and urge urinary incontinence Confirmed Active Results Radiology Reports * Exam Date Time Procedure Performing Provider Status 09/07/25 11:44 AM Ship It Bag Check A [facility] (Verified) Notes: (Ship It Bag Check) Reason For Exam: Calculus of kidney RESULT: IIZI group Reason: Calculus of kidney COMPARISON: Ultrasound of 09/12/2024, 09/10/2023, 09/08/2022 FINDINGS: Right kidney: 12.4 cm in length. No hydronephrosis. Normal parenchymal thickness and echotexture. No stones. No suspicious mass. There is a benign cyst in the upper pole measuring 18 x 16 x 14 mm, similar to prior examination. Left kidney: 10.7 cm in length. There is mild pelviectasis. There is no hydronephrosis. Normal parenchymal thickness and echotexture. No stones. No suspicious mass. The visualized bladder is unremarkable. There are left ureteral jet is visualized. IMPRESSION: No hydronephrosis. Stable benign renal cyst measuring up to 1.8 cm. THIS STUDY WAS PERFORMED AT [facility], [address] [place] [address] WSN: [id number] Ordering Physician: Merlyn Ridley Dictated By: Elle Serra MD Dictated Date/Time: 09/07/25 12:37 p Reviewed By: Elle Serra MD Signed By: Elle Serra MD Signed Date/Time: 09/07/25 12:37 pm Transcribed By: VODNA Transcribed Date/Time: 09/07/25 12:35 pm Social History Social History Type Response Smoking Status Never smoker entered on: 11/27/13 Sex Sex Representation Female (finding) Patient Care team information Care Team Personnel Name: Margaret Garcia RN Position: S RN Member Role: Primary Care Nurse Name: Danny Chowdhury RN Position: S RN Member Role: Primary Care Nurse Name: Kelsy Calle MD Position: [facility] Physician - Primary Care Member Role: PCP Address: [address] [place] [id number]: Name: Anju Harris RN Position: S RN Member Role: Primary Care Nurse Care Team Related Persons Name: CARLOS GONZALEZ Insurance Providers Guarantor name: SHAHRIAR RAMOS [facility] Information #: 1 Payer: [employer] Payer Identifier: NA Member Number: [id number] Group Number: [id number] Subscriber Identifier: [id number] Relationship to Subscriber: self Coverage Type: Commercial Indemnity Coverage Verification Date: NA Telecom: NA Address: NA
--- NOTE | 2025-09-20 12:57 | A.OFFVIS_ITS ---
Vital Signs 09/20/25 12:58 Height 5 ft 2 in Weight 191 lb 12.835 oz BMI 35.1 BP 110/60 Blood Pressure Location Rt brachial Position Sitting Pulse 82 Pulse Source Pulse Oximeter Pulse Oximetry (%) 100 Oxygen Delivery Method Room Air Intake Visit Reasons: 3 Months Intake Note: Patient presents for RA. Accompanied by: Self / Same As Patient Allergies mold Adverse Reaction (Unknown, Verified 09/20/25 12:58) Unknown Sulfa (Sulfonamide Antibiotics) Adverse Reaction (Unknown, Verified 09/20/25 12:58) Unknown dust Adverse Reaction (Unknown, Uncoded 01/04/24 14:33) Watery Eye HPI HPI 3 Months: Details: MS 2 minutes. She took prednisone course with benefit Lately elbows have been hurting. [facility] Medical History Seborrheic dermatitis Ventricular septal defect Hypothyroid Overactive bladder Rheumatoid arthritis, seropositive, multiple sites Obstructive sleep apnea Severe obesity (BMI 35.0-35.9 with comorbidity) Hyperlipidemia Asthma Nonrheumatic pulmonary valve stenosis Coronary artery disease Staghorn calculus Surgical History H/O valvuloplasty H/O mammogram Hx of colonoscopy Family History Mother Hypertension Arthritis Breast cancer, Onset Age: 80 Sister Arthritis Father Diabetes Arthritis Social History Household Members Other:: lives alone Housing: Condominium Are you a primary chronic care nurse to a significant other at home: No Do you presently have visiting nurse or other home services: No 75 years or older and lives alone: No Alcohol intake: never Patient Tobacco Use Status: Never used Tobacco e-Cigarette/Vaping Use: Never Used service: No Current occupational status: employed 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 Good respiratory effort Skin: No lesions seen MSK: Bilateral 2-3rd MCP synovitis present. Ulnar deviation in hands. Left shoulder limited full abduction, internal rotation and external rotation. She has left elbow flexor contracture. No MTP tenderness. Bilateral knee flexion 90 degrees. Assessment & Plan Assessment & Plan (1) Seropositive rheumatoid arthritis: Comment: Inflammatory arthritis is not controlled on monotherapy with hydroxychloroquine. She has synovitis of MCPs. She also has flexure contracture of left elbow with limited range of motion of left shoulder. Inflammatory markers from 09/2025 are up trending corresponding with uncontrolled inflammatory arthritis. We discussed next steps with stepping up DMARD therapy with methotrexate. Discussed side effects, benefits and drug monitoring. She has anemia and we will be seeing Hematology. Uncontrolled chronic disease from rheumatoid arthritis can contribute to anemia. Hydroxychloroquine also has a rare risk of anemia. X-rays do not reveal erosive inflammatory arthritis. Rheumatology history: Onset ~ 2008. +CIERA, RF 107 and CCP Ab >250, neg anti-SAMIRA. She has been on hydroxychloroquine since February 2015. Code(s): M05.9 - Rheumatoid arthritis with rheumatoid factor, unspecified Category: Medical Plan: Continue hydroxychloroquine 400 mg daily. Eye exam up-to-date from February 2025 OCT and threshold visual field Labs for disease and drug monitoring is up-to-date 09/2025 Start methotrexate 12.5 mg once weekly Start folic acid 1 mg daily Labs for drug monitoring are due in 1 month Information on methotrexate given to patient Return to clinic in 3 months. (2) Long-term use of hydroxychloroquine: Code(s): Z79.899 - Other residential (current) drug therapy Category: Medical Plan: See above (3) MGUS (monoclonal gammopathy of unknown significance): Code(s): D47.2 - Monoclonal gammopathy Category: Medical Plan: Follows with hem/ oncology Orders: Orders [id number] Dehydrogen 1 Month Z79.899 - Other card lacer jacquard (current) drug therapy Complete Blood Count Auto Diff 1 Month Z79.899 - Other residential (current) drug therapy Aspartate Amino Transferase 1 Month Z79.899 - Other residential (current) drug therapy C Reactive Protein 1 Month Z79.899 - Other residential (current) drug therapy Erythrocyte Sedimentation Rate 1 Month Z79.899 - Other residential (current) drug therapy Alanine Aminotransferase 1 Month Z79.899 - Other residential (current) drug therapy Creatinine 1 Month Z79.899 - Other card lacer jacquard (current) drug therapy Medications: New folic acid 1 mg PO DAILY 30 tabs 11RF methotrexate sodium Labs due in 1 month 12.5 mg (5 x 2.5 mg) PO QWEEK 20 tabs 0RF 4 weeks Coding Level of Care Code Est Pt Level 4 (81966) Add On Problem Visit Only Diagnoses Seropositive rheumatoid arthritis M05.9 Long-term use of hydroxychloroquine Z79.899 MGUS (monoclonal gammopathy of unknown significance) D47.2
[2025-09-20 12:58] VITALS: BP 110/60; PULSE 82; O2SAT 100; BMI 35.1
--- OUTSIDE RECORDS SUMMARY | 2025-09-20 16:46 | XMS_ITS | Clinical Summary ---
Author Organization 175 [facility] Address [address] [place] [address] Phone Care Team Providers Care District Court Bailiff Name Role Phone Kelsy Calle MD Primary [...] Continue atorvastatin as prescribed. Severe obesity (BMI 35.0-39.9) with comorbidity 08/19/2018 Microalbuminuria 02/02/2018 Obstructive sleep apnea 01/24/2018 Overview (11/19/2024): [facility] Home Polysomnogram: Date 01/18/2018; AHI 12, Unclassified apneas 1; Obstructive apneas 5; Central apneas 0; Mixed apneas 0; hypopneas 65; average oxygen saturation 88% (lowest 74% with saturations <88% for 5% or more of study) - Obstructive Sleep Apnea - mild; mostly hyopneas; with sleep related hypoventilation by 2018 home polysomnogram. Bicornuate uterus 08/10/2016 Rheumatoid arthritis, seropositive, multiple sit es 01/30/2015 Overview (11/19/2024): Onset ~ 2008. Pos CIERA, pos RF, pos CCP Ab, neg anti-SAMIRA. Hydroxychloroquine started 02/15; eye exam OK 10/19, 10/20, 10/21, 10/22, 11/23, 10/2020 Overactive bladder 01/24/2015 Seborrheic dermatitis 06/08/2014 Overview (11/19/2024): Allergic rhinitis 08/19/2011 Hypothyroid 04/10/2010 Congenital stenosis of pulmonary valve 6 Overview (11/19/2024): Successful balloon valvuloplasty 1994 Assessment & Plan (06/14/2025 3:54 PM EDT): S/p balloon valvuloplasty in 1994 at [facility]. Updated echocardiogram in December showed mild to [...] PM EST Hospital Encounter Radiology Department - [address] [phone] Axillary lymphadenopathy; At high risk for breast cancer Discharge Disposition: Home or Self Care 08/23/2025 3:15 PM EST Office Visit [facility] Hematology Oncology [address] [place] [phone] Neil Castaneda MD Anemia, unspecified type (Primary Dx) 08/06/2025 8:55 AM EST Lab Draw Station - [address] [phone] IgG lambda monoclonal gammopathy from Last 3 Months Immunizations Immunization Administration [...] Severe obesity (BMI 35.0-39. 9) with comorbidity ([facility] V24, [facility] V28) 08/19/2018 Staghorn calculus 05/01/2021 : 03/24 large, stent placed Calculus of kidney left removal at [facility] [place]21 Family History Medical History Relation Name [...] 10/01/2025 2:00 PM EST Ancillary Procedure Pulmonology [facility] [address] [phone] 10/01/2025 2:45 PM EST Office Visit Pulmonology [facility] [address] [phone] Anel Murphy MD [address] [place] [phone] 10/08/2025 3:30 PM EST Office Visit Adult Medicine [address] [phone] Kelsy Calle MD [address] [place] [phone] 10/19/2025 3:00 PM EST Office Visit [facility] Hematology Oncology [address] [place] [phone] Neil Castaneda MD [address] [place] [phone] 12/25/2025 2:00 PM EDT [facility] [address] [phone] Landon Akhtar MD [address] [place], [place] [phone] Health Maintenance Due Date Last Done Comments HIV Screening 09/12/2022 Social Influencers of Health Screening 09/12/2022 Depression Screening 10/04/2024 COVID-19 Vaccine ( season) 2025 10/07/2022, 10/19/2021, 02/27/2021, Additional history exists Hypertension/CHF/CAD Annual BMP Blood Test 08/06/2026 08/06/2025, 01/29/2025, 05/24/2024, Additional history exists Breast Cancer Screening 09/03/2026 09/03/20 25, 03/14/2025, 08/19/2024, Additional history exists Cervical Cancer [...] this topic Medical Devices Implanted Type Area Operations And Maintenance Manager Device Identifier Shelf Expiration Date Model / Serial / Lot Marker Breast Biopsy 15g Rigid Ti Barrel Hydromark - [id number] - [id number] Implanted:Qty: 1 on 03/23/2025 by Babak Rice MD at [facility] Imaging Implants Left: Axilla [employer] [id number] 07/13/2027 4010-02- 15-T1 / [id number] / [id number] Procedures Procedure Name Priority Date/Time Associated Diagnosis Comments MG MAMMO DIGITAL SCREENING W FLAVIO BILAT Routine 09/03/2025 5:48 PM EST Axillary lymphadenopathy At high risk for breast cancer MT PROTEIN ELECTROPHORETIC FRACTIONATION & QUANTITATION SERUM Routine 08/06/2025 8:54 AM EST IgG lambda monoclonal gammopathy MT IMMUNOFIXATION ELECTROPHORESIS SERUM Routine 08/06/2025 8:54 AM [...] 8:37 AM EDT Coronary artery disease involving huslia coronary artery of huslia heart without angina pectoris Microalbuminuria Hypothyroidism due to acquired atrophy of thyroid Rheumatoid arthritis, seropositive, multiple sites (CMS/HCC V24, CMS/HCC V28) Obesity (BMI 30.0-34.9) Elevated random blood glucose level Hyperlipidemia LDL goal <55 BD BONE DENSITY DXA AXIAL SKELETON Routine 12/11/2024 2:05 PM EDT Menopausal and postmenopausal disorder HM COLONOSCOPY Routine 03/08/2024 HPV Routine 10/16/2021 HEPATITIS C SCREENING Routine [...] is recommended in 1 year. Mammo Location: [facility], [address] [place] [address], [id number], . -------- FINAL REPORT -------- Dictated By: Val Villareal Dictated Date: 09/05/2025 13:57 ET Assigned Physician: Val Villareal Reviewed and Electronically Signed By: Val Villareal Signed Date: 09/05/2025 14:06 ET Workstation ID: [id number] Transcribed By: Self Edit Transcribed Date: 09/05/2025 [...] is recommended in 1 year. Mammo Location: [facility], [address] [place] [address], [id number], . -------- FINAL REPORT -------- Dictated By: Val Villareal Dictated Date: 09/05/2025 13:57 ET Assigned Physician: Val Villareal Reviewed and Electronically Signed By: Val Villareal Signed Date: 09/05/2025 14:06 ET Workstation ID: [id number] Transcribed By: Self Edit Transcribed Date: 09/05/2025 13:57 ET Landon Akhtar MD IMG BI PROCEDURES Final Result * Pathologist Review Immunofixation (08/06/2025 8:54 AM EST) Pathologist Interpretation Elaine Sandra MD 08/08/2025 2:26 PM EST [facility] Blood Venous blood specimen / Unknown Venipuncture / Unknown 08/06/2025 8:54 AM EST 08/06/2025 11:33 AM EST Neil Castaneda MD LAB BLOOD ORDERABLES Final Result Performing Organization Address [facility]/ZIP Co de Phone Number [facility] [address] [place] [address], [place] [phone] * PATHOLOGIST REVIEW PROTEIN ELECTROPHORESIS (08/06/2025 8:54 AM EST) Pathologist Interpretation Elaine Sandra MD 08/08/2025 2:28 PM EST [facility] Blood Venous blood specimen / Unknown Venipuncture / Unknown 08/06/2025 8:54 AM EST 08/06/2025 11:33 AM EST us Neil Castaneda MD LAB BLOOD ORDERABLES Final Result Performing Organization Address City/[facility]/ZIP Co de Phone Number [facility] [address] [place] [address], [place] [phone] * (ABNORMAL) Cale-lambda free light chains, quantitative (08/06/2025 8:54 AM EST) Pathologist [facility] Cale Free Light Chain 4.87(H) 0.33 - 1.94 mg/dL 08/08/2025 10:53 AM EST [facility] Lambda Free Light Chain 4.59(H) 0.57 - 2.63 mg/dL 08/08/2025 10:53 AM EST [facility] Cale/Lambda FLC Ratio 1.06 0.26 - 1.65 08/08/2025 10:53 AM EST [facility] Comment: Test performed at [facility], [address], [place] [address] Elen Miguel MD, PhD - Manager Development Blood Venous blood specimen / Unknown Venipuncture / Unknown 08/06/2025 8:54 AM EST 08/06/2025 11:33 AM EST Neil Castaneda MD LAB BLOOD ORDERABLES Final Result [facility] [address] [place] [address] * (ABNORMAL) CBC auto differential (08/06/2025 8:54 AM EST) [facility] WBC 7.4 4.8 - 10.8 K/mcL LAB HEMETOLOGY METHOD 08/06/2025 12:46 PM [facility] RBC 4.00 3.80 - 4.80 M/mcL LAB HEMETOLOGY METHOD 08/06/2025 12:46 PM [facility] Hemoglobin 10.3(L) 11.5 - 16.0 g/dL LAB HEMETOLOGY METHOD 08/06/2025 12:46 PM [facility] Hematocrit 33.5(L) 35.0 - 47.0 % LAB HEMETOLOGY METHOD 08/06/2025 12:46 PM [facility] MCV 83.1 79.0 - 98.0 FL LAB HEMETOLOGY METHOD 08/06/2025 12:46 PM [facility] MCH 25.6(L) 27.0 - 32.0 pcg LAB HEMETOLOGY METHOD 08/06/2025 12:46 PM [facility] MCHC 30.7(L) 32.0 - 37.0 g/dL LAB HEMETOLOGY METHOD 08/06/2025 12:46 PM [facility] RDW 15.6(H) 11.0 - 15.0 % LAB HEMETOLOGY METHOD 08/06/2025 12:46 PM [facility] Platelets 336 130 - 400 K/mcL LAB HEMETOLOGY METHOD 08/06/2025 12:46 PM [facility] MPV 10.5 7.0 - 11.0 FL LAB HEMETOLOGY METHOD 08/06/2025 12:46 PM [facility] NRBC 0.0 <1.0 % LAB HEMETOLOGY METHOD 08/06/2025 12:46 PM [facility] NRBC Absolute 0.00 <0.10 K/mcL LAB HEMETOLOGY METHOD 08/06/2025 12:46 PM [facility] Neutrophils Relative 64.0 % LAB HEMETOLOGY METHOD 08/06/2025 12:46 PM [facility] Lymphocytes Relative 21.3 % LAB HEMETOLOGY METHOD 08/06/2025 12:46 PM [facility] Monocytes Relative 9.1 % LAB HEMETOLOGY METHOD 08/06/2025 12:46 PM [facility] Eosinophils Relative 4.5 % LAB HEMETOLOGY METHOD 08/06/2025 12:46 PM [facility] Basophils Relative 0.7 % LAB HEMETOLOGY METHOD 08/06/2025 12:46 PM [facility] Immature Granulocytes Relative 0.4 % LAB HEMETOLOGY METHOD 08/06/2025 12:46 PM EST [facility] Neutrophils Absolute 4.72 1.50 - 7.00 K/mcL LAB HEMETOLOGY METHOD 08/06/2025 12:46 PM [facility] Lymphocytes Absolute 1.57 1.00 - 5.00 K/mcL LAB HEMETOLOGY METHOD 08/06/2025 12:46 PM EST [facility] Monocytes Absolute 0.67 0.20 - 1.00 K/mcL LAB HEMETOLOGY METHOD 08/06/2025 12:46 PM EST [facility] Eosinophils Absolute 0.33 0.00 - 0.50 K/[facility] LAB HEMETOLOGY METHOD 08/06/2025 12:46 PM [facility] Basophils Absolute 0.05 0.00 - 0.20 K/mcL LAB HEMETOLOGY METHOD 08/06/2025 12:46 PM [facility] Immature Granulocytes Absolute 0.03 0.00 - 0.03 K/[facility] HEMETOLOGY METHOD 08/06/2025 12:46 PM [facility] Blood Venous blood specimen / Unknown Venipuncture / Unknown 08/06/2025 8:54 AM EST 08/06/2025 11:34 AM EST Neil Castaneda MD LAB BLOOD ORDERABLES Final Result [facility] [address] [place] [address], * Immunofixation electrophoresis serum (08/06/2025 8:54 AM EST) Immunofixation Result, Serum IgG Lambda monoclonal immunoglobulins detected. LAB CHEMISTRY METHOD 08/08/2025 2:26 PM EST [facility] Blood Venous blood specimen / Unknown Venipuncture / Unknown 08/06/2025 8:54 AM EST 08/06/2025 11:33 AM EST Neil Castaneda MD LAB BLOOD ORDERABLES Final Result Performing Organization Address [facility]/ZIP Co de Phone Number [facility] [address] [place] [address], [place] [phone] * (ABNORMAL) Immunoglobulins IgG, IgA, IgM (08/06/2025 8:54 AM EST) [facility] Total IgG 1,710(H) 549 - 1,584 mg/dL LAB CHEMISTRY METHOD 08/06/2025 12:17 PM EST [facility] IgA 307 61 - 348 mg/dL LAB CHEMISTRY METHOD 08/06/2025 12:17 PM EST [facility] IgM 77 23 - 259 mg/dL LAB CHEMISTRY METHOD 08/06/2025 12:17 PM EST [facility] Blood Venous blood specimen / Unknown Venipuncture / Unknown 08/06/2025 8:54 AM EST 08/06/2025 11:33 AM EST Neil Castaneda MD LAB BLOOD ORDERABLES Final Result Performing Organization Address [facility] Co de Phone Number [facility] [address] [place] [address], [place] [phone] * Protein electrophoresis, serum (08/06/2025 8:54 AM EST) [facility] Total Protein 7.7 6.0 - 8.0 g/dL LAB CHEMISTRY METHOD 08/08/2025 2:28 PM EST [facility] Albumin, Serum 3.1 2.9 - 4.1 g/dL LAB CHEMISTRY METHOD 08/08/2025 2:28 PM EST [facility] Alpha 1 Globulin (g/dL) 0.3 0.1 - 0.5 g/dL LAB CHEMISTRY METHOD 08/08/2025 2:28 PM EST [facility] Alpha 2 Globulin (g/dL) 1.3 0.7 - 1.5 g/dL LAB CHEMISTRY METHOD 08/08/2025 2:28 PM [facility] Beta (g/dL) 1.2 0.7 - 1.5 g/dL LAB CHEMISTRY METHOD 08/08/2025 2:28 PM [facility] Gamma Globulin (g/dL) 1.9 0.7 - 1.9 g/dL LAB CHEMISTRY METHOD 08/08/2025 2:28 PM [facility] PARAPROTEIN LAB CHEMISTRY METHOD 08/08/2025 2:28 PM [facility] Comment:Immeasurable SPEP Interpretation Monoclonal gammopathy Abnormal pattern with immeasurable M-spike of gamma globulin mobility. Serum Immunofixation performed on this specimen demonstrated IgG Lambda monoclonal protein. LAB CHEMISTRY METHOD 08/08/2025 2:28 PM [facility] Blood Venous blood specimen / Unknown Venipuncture / Unknown 08/06/2025 8:54 AM EST 08/06/2025 11:33 AM EST us Neil Castaneda MD LAB BLOOD ORDERABLES Final Result Performing Organization Address City/[facility]/ZIP Co de Phone Number [facility] [address] [place] [address], * Protein, total (08/06/2025 8:54 AM EST) Total Protein 7.7 6.0 - 8.0 g/dL LAB CHEMISTRY METHOD 08/06/2025 12:04 PM EST [facility] Blood Venous blood specimen / Unknown Venipuncture / Unknown 08/06/2025 8:54 AM EST 08/06/2025 11:33 AM EST us Neil Castaneda MD LAB BLOOD ORDERABLES Final Result Performing Organization Address City/[facility]/ZIP Co de Phone Number [facility] [address] [place] [address], * Comprehensive metabolic panel (08/06/2025 8:54 AM EST) Sodium 135 133 - 145 mmol/L LAB CHEMISTRY METHOD 08/06/2025 12:17 PM [facility] Potassium 4.2 3.5 - 5.5 mmol/L LAB CHEMISTRY METHOD 08/06/2025 12:17 PM [facility] Chloride 102 96 - 110 mmol/L LAB CHEMISTRY METHOD 08/06/2025 12:17 PM [facility] CO2 29 21 - 32 mmol/L LAB CHEMISTRY METHOD 08/06/2025 12:17 PM [facility] Anion Gap 4 3 - 11 LAB CHEMISTRY METHOD 08/06/2025 12:17 PM [facility] Glucose 83 70 - 100 mg/dL LAB CHEMISTRY METHOD 08/06/2025 12:17 PM [facility] BUN 16 5 - 25 mg/dL LAB CHEMISTRY METHOD 08/06/2025 12:17 PM [facility] Creatinine 0.63 0.50 - 1.10 mg/dL LAB CHEMISTRY METHOD 08/06/2025 12:17 PM [facility] eGFR 101 >=60 mL/min/1. 73m2 LAB CHEMISTRY METHOD 08/06/2025 12:17 PM [facility] Comment:Calculation based on the Chronic Kidney Disease Epidemiology Collaboration (CKD-EPI) equation refit without adjustment for race. BUN/Creatinine Ratio 25.4 LAB CHEMISTRY METHOD 08/06/2025 12:17 PM [facility] Calcium 9.8 8.5 - 10.5 mg/dL LAB CHEMISTRY METHOD 08/06/2025 12:17 PM [facility] AST (SGOT) 10 10 - 42 unit/L LAB CHEMISTRY METHOD 08/06/2025 12:17 PM [facility] ALT (SGPT) 28 10 - 60 unit/L LAB CHEMISTRY METHOD 08/06/2025 12:17 PM EST [facility] Alkaline Phosphatase 114 42 - 121 unit/L LAB CHEMISTRY METHOD 08/06/2025 12:17 PM [facility] Total Protein 7.7 6.0 - 8.0 g/dL LAB CHEMISTRY METHOD 08/06/2025 12:17 PM [facility] Albumin 3.2 3.2 - 5.0 g/dL LAB CHEMISTRY METHOD 08/06/2025 12:17 PM [facility] Total Bilirubin 0.4 0.0 - 1.4 mg/dL LAB CHEMISTRY METHOD 08/06/2025 12:17 PM [facility] Blood Venous blood specimen / Unknown Venipuncture / Unknown 08/06/2025 8:54 AM EST 08/06/2025 11:33 AM EST us Neil Castaneda MD LAB BLOOD ORDERABLES Final Result [facility] [address] [place] [address], * Lipid panel with reflex to direct LDL (05/01/2025 8:37 AM EDT) Cholesterol 134 0 - 200 mg/dL LAB CHEMISTRY METHOD 05/01/2025 2:11 PM EDT [facility] Triglycerides 115 0 - 150 mg/dL LAB CHEMISTRY METHOD 05/01/2025 2:11 PM EDT [facility] HDL 53 >=40 mg/dL LAB CHEMISTRY METHOD 05/01/2025 2:11 PM EDT [facility] LDL Calculated 58 0 - 100 mg/dL LAB CHEMISTRY METHOD 05/01/2025 2:11 PM [facility] VLDL Cholesterol Alexis 23 mg/dL LAB CHEMISTRY METHOD 05/01/2025 2:11 PM EDT [facility] Non HDL Chol. (LDL+VLDL) 81 <145 mg/dL LAB CHEMISTRY METHOD 05/01/2025 2:11 PM EDT [facility] Chol/HDL Ratio 2.5 0.0 - 4.4 LAB CHEMISTRY METHOD 05/01/2025 2:11 PM EDT [facility] Blood Venous blood specimen / Unknown Venipuncture / Unknown 05/01/2025 8:37 AM EDT 05/01/2025 8:37 AM EDT us Anju VASQUEZ LAB BLOOD ORDERABLES Final Re sult [facility]) [facility] [address] [place] [address], * BD Bone Density DXA Axial Skeleton [...] (World Health Organization Fracture Risk Assessment) [facility] Department of Internal Medicine recommends using [...] Signed Date: 12/12/2024 09:30 ET Workstation ID: [id number] Transcribed By: Self Edit Transcribed Date: 12/12/2024 [...] (World Health Organization Fracture Risk Assessment) [facility] Department of Internal Medicine recommendsusing National [...] Signed Date: 12/12/2024 09:30 ET Workstation ID: [id number] Transcribed By: Self Edit Transcribed Date: 12/12/2024 09:29 ET Princess Loyola CNM [facility] [place]XA PROCEDURES Final Result * Colonoscopy (03/08/2024) Colonoscopy no interpretation , abstracted Anatomical Region Laterality Modality Other [facility] Provider HEALTH MAINTENANCE Final Result * Cervical Cancer Screening: HPV (10/16/2021) [facility] Cervical Cancer Screening: HPV negative, abstracted [facility] Provider HEALTH MAINTENANCE Final Result * Hepatitis C Screening (08/20/2011) [facility] Hepatitis C Screening abstracted [facility] Provider HEALTH MAINTENANCE Final Result from Last 3 Months or Most Recently Relevant to Health Maintenance Insurance * Guarantor: Shahriar Green Account Type Relation to Patient Date of Phone Billing Address Personal/Family Self 1965 [phone] (Work) [address] [place] [address] [facility] Care Teams [address] Bailiff Relationship Specialty Start Date End Date Kelsy Calle MD [address] [place] [phone] PCP - General 07/17/24
== END 2025-09-20 13:36 | disposition home or self-care (01) ==
LOC: HO.RHES 12:53
PROVIDERS: PCP Internal Medicine; Visit Provider Internal Medicine Rheumatology
DX: M05.9 Rheumatoid arthritis with rheumatoid factor, unspecified (principal); Z79.899 Other long term (current) drug therapy; D47.2 Monoclonal gammopathy
CPT/HCPCS: 99214